=== PATIENT | female | born 1990 | race Caucasian/White ===

== ENCOUNTER 2019-04-16 18:31 | Inpatient (IN) | payer OTHER ==
[2019-04-16] MEDS ORDERED: PROMETHAZINE 25 MG/ML VIAL IM PRN (20:15)
[2019-04-16] MEDS ORDERED: CARBOPROST TROME 250 MCG/ML IM PRN (20:15)
[2019-04-16] MEDS ORDERED: Ringers Lactate 1,000 ML IV PRN ×2 (20:15→20:24)
[2019-04-16] MEDS ORDERED: METHYLERGONOVINE 0.2MG/ML AMP IM PRN (20:15)
[2019-04-16] MEDS ORDERED: BUTORPHANOL 1 MG/ML INJ IV PRN (20:15)
[2019-04-16] MEDS ORDERED: PENICILLIN 5 MU in NA CHLORIDE 0.9% 100 ML IV ONE (20:15)
[2019-04-16 20:56] LABS: Absolute Lymphocytes (CBC) 1.3 K/uL (0.7-4.9); Basophils % 0.2 % (0-1.3); Hematocrit 35.3 % (36.0-45.0); Lymphocytes % 9.7 % (15.3-44.8); MPV 10.5 fL (7.6-11.3); RBC Red Blood Cell Count 3.88 M/uL (3.86-4.86); Urine Appearance TURBID; Urine Blood 3+ (NEG); Urine Color RED; Urine Glucose NEGATIVE (NEG); Urine Protein 2+ (NEG)
[2019-04-16] MEDS ORDERED: OXYTOCIN/LR 20 UNIT/1,000 ML BAG IV SCH (21:00)
[2019-04-16] MEDS ORDERED: Ringers Lactate 1,000 ML IV SCH (21:00)
[2019-04-16 21:01] LABS: Urine Microscopic Reflex ORDER UMIC
[2019-04-16 21:05] LABS: Urine Bilirubin NEGATIVE (NEG)
[2019-04-16 21:09] LABS: Urine RBC TNTC /HPF (NONE SEEN)
[2019-04-16 21:10] LABS: Urine Amorphous Sediment 2+ /HPF (NONE SEEN); Urine Bacteria <20 /HPF (<20); Urine Culture Reflex Order REFLEXED
[2019-04-16] MEDS ORDERED: ROPIVACAINE HCL 20 ML ONE (21:27)
[2019-04-16] MEDS ORDERED: FENTANYL CITR 100 MCG/2 ML ONE (21:27)
[2019-04-16] MEDS ORDERED: ROPIVACAINE HCL 100 ML IV ONE (21:27)
[2019-04-16] MEDS ORDERED: LIDOCAINE 1% 20 ML MDV ONE (22:24)
[2019-04-16 22:48] VITALS: BMI 37.8
[2019-04-16 23:15] LABS: RPR (Rapid Plasma Reagin) NON-REACT (NON-REACT)
[2019-04-17] MEDS ORDERED: PENICILLIN 2.5 MU in NA CHLORIDE 0.9% 100 ML IV SCH ×2
[2019-04-17] MEDS ORDERED: PENICILLIN G POT 5 MU/VIAL IV ONE (00:20)
[2019-04-17] MEDS ORDERED: NA CHLORIDE 0.9% 0 ML ONE (00:21)
[2019-04-17] MEDS ORDERED: NA CHLORIDE 0.9% 100 ML IV ONE (00:24)
--- NOTE | 2019-04-17 00:34 | PREOPHP ---
Date of Admission: 04/16/2019 This is a 29-year-old primigravida, 38 weeks 5 days, came in active labor. Was 3 cm on admission, lares d been 2 cm in the office. Within a short period time was 3 cm and then 4 cm. She was admitted, sta rted on IV penicillin as she was beta strep positive. Has received 1 dose and should receive another dose within the next hour or less. At 6 cm, requested epidural anesthesia. This was administered a nd patient is quite comfortable at this time. Spontaneous rupture of membranes occurred thereafter. Light meconium. External monitor shows good variability, no signs of any problems at this time, but meconium discussed with patient and family. We will suction the baby thoroughly at the time of saira go. She is now 8.5 cm, 90% to 100% effaced, +1 station. She is barely aware of her contractions. We may turn the epidural back if she cannot push effectively, but right now, she is doing well advan cing, so we will leave it at the current setting of 10. Admission talk given, anticipate delivery so metime relatively soon. JOE/KAYLEY Voice ID: [id number]
--- NOTE | 2019-04-17 01:14 | PN ---
The patient has a lip of cervix left, we will wait until she is complete to begin pushing. There pizarro s appear to be a small particulate matter present, I still do not see any dark green signs of meconiu m. Nonetheless, we will get a human resources coordinator to come out at the time of delivery in case the baby need s more thorough suctioning after the head and body are delivered. Thorough discussion with patient a nd family. Scalp electrode placed for better assessment, but thus far the baby looked good. We will start some light Pitocin as contractions were slightly spacing out. STEPHENC/MODL Voice ID: [id number] Report ID: [id number]
[2019-04-17] MEDS ORDERED: LIDOCAINE 1% MPF 30 ML VIAL ONE (03:32)
[2019-04-17] MEDS ORDERED: BISACODYL 10 MG RECTAL SUPP RECT PRN (03:44)
[2019-04-17] MEDS ORDERED: Oxycodone HCl/Acetaminophen 1 TAB TAB PO PRN ×2 (03:44)
[2019-04-17] MEDS ORDERED: DOCUSATE NA/SENNA CONC 1 TAB PO PRN (03:44)
[2019-04-17] MEDS ORDERED: DIPHENHYDRAMINE 25 MG TAB/CAP PO PRN (03:44)
[2019-04-17] MEDS ORDERED: ACETAMINOPHEN 500 MG TAB PO PRN (03:44)
[2019-04-17] MEDS ORDERED: OXYTOCIN/LR 20 UNIT/1,000 ML BAG IV SCH (04:00)
--- NOTE | 2019-04-17 04:40 | OP ---
Surgeon: Ru Beth MD History: A 29-year-old primigravida, 38 weeks 5 days, on admission mirza in active labor. Had Stadol 1 mg IV at 6 cm, requested and received epidural anesthesia. Had spontaneous rupture of memb ranes, meconium noted. Dr. Devlin notified and was present at the time of delivery. Second stage of about 1 hour and 15 minutes. Spontaneous vaginal delivery of a 7-pound 11-ounce male infant, very loose nuchal cord x1. Thorough suctioning of the nares and oropharynx prior to delivery of the body and then Dr. Devlin took over, no suspicion of aspiration. Apgars 9 and 9. Second-degree lacerat ion repaired with 2-0 chromic, local infiltration, and a first-degree laceration just inside the labi a minora on the left, also local infiltration. Schultze delivery of the placenta, which was inspecte d and noted to be stained with meconium, but otherwise normal and intact. Estimated blood loss 350 m L to 375 mL. The patient received penicillin 5 million units initially, then 2.5 million units durin g the labor. Tolerated all procedures well. Final Diagnoses: Term intrauterine 38 weeks 6 days of delivery, epidural anesthesia. Meco nium staining of amniotic fluid. No suspicion of aspiration. Penicillin prophylaxis. Patient is Rh negative and will be qualified for RhoGAM during her stay. JOE/KAYLEY Voice ID: [id number] Report ID: [id number]
[2019-04-17] MEDS: IBUPROFEN 200 MG TAB PO PRN ×2 (05:57→16:50)
[2019-04-17] MEDS ORDERED: Rho(D) IG (HUMAN) 300 MCG SYR IM ONE (10:03)
[2019-04-18] MEDS: IBUPROFEN 200 MG TAB PO PRN ×2 (00:16→08:30)
[2019-04-18 07:13] VITALS: BP 132/86; TEMP 98
[2019-04-20 03:05] LABS: HBsAG Nonreactive (Nonreactive)
== END 2019-04-18 10:25 | disposition home or self-care (01) | DRG 807 ==
LOC: L&D 18:31 → 2ND-WC 20:11
PROVIDERS: ADMIT Specialist; ATTEND Specialist
PROC: 10E0XZZ Delivery of Products of Conception, External Approach (ICD-10-PCS; principal; 2019-04-17)
PROC: 0KQM0ZZ Repair Perineum Muscle, Open Approach (ICD-10-PCS; 2019-04-17)
PROC: 3E0234Z Introduction of Serum, Toxoid and Vaccine into Muscle, Percutaneous Approach (ICD-10-PCS; 2019-04-17)
DX: O70.1 Second degree perineal laceration during delivery (principal); Z37.0 Single live birth; O69.81X0 Labor and delivery complicated by cord around neck, without compression, not applicable or unspecified; O99.824 Streptococcus B carrier state complicating childbirth; Z3A.38 38 weeks gestation of pregnancy
CPT/HCPCS: 36415; 81003; 81015; 85025; 85461; 86592; 86850; 86901; 87086; 87088; 87340; J0595; J2210; J2550; J2590; J2790; J2795; J3010; J7040; J7120

== ENCOUNTER 2021-10-20 06:12 | Emergency (ER) | payer OTHER ==
[2021-10-20 06:41] LABS: Urine Blood 1+ (Negative); Urine Glucose Negative (Negative); Urine Protein 3+ (Negative); Urine pH 6.5 (5.0-7.0)
[2021-10-20] MEDS ORDERED: ONDANSETRON 4 MG/2 ML VIAL ONE (06:56)
[2021-10-20] MEDS ORDERED: MORPHINE 4 MG/ML SYR ONE (06:56)
[2021-10-20] MEDS ORDERED: NA CHLORIDE 0.9% 1,000 ML ONE (06:56)
[2021-10-20 07:07] LABS: Absolute Lymphocytes (CBC) 0.5 K/uL (0.7-4.9); Hematocrit 40.1 % (36.0-45.0); Lymphocytes % 9.7 % (15.3-44.8); MPV 8.6 fL (7.6-11.3); RBC Red Blood Cell Count 3.86 M/uL (3.86-4.86)
[2021-10-20 07:25] LABS: Albumin 3.9 g/dL (3.4-5.0); Bilirubin Total 1.8 mg/dL (0.2-1.0); Protein, Total 7.7 g/dL (6.4-8.2)
--- NOTE | 2021-10-20 08:02 | RAD REPORT ---
EXAM DESCRIPTION: CT - Abdomen Pelvis Wo Contrast - 10/20/2021 7:40 am CLINICAL HISTORY: Abdominal pain. Abdominal pain, acute, nonlocalized COMPARISON: CTSTONE PROTOCOL dated 05/21/2013 TECHNIQUE: CT imaging of the abdomen and pelvis was performed without contrast. Solid organ, bowel a nd vascular assessment is limited due to lack of IV and oral contrast. All CT scans are performed using dose optimization technique as appropriate and may include automated exposure control or mA/KV adjustment according to patient size. FINDINGS: The lower lung jung are clear. The liver demonstrates fatty infiltration. The spleen, pancreas, adrenal glands are within normal garcia its for a limited non-contrast examination.Bilateral nephrolithiasis is present without hydronephrosi s identified. Largest stone is inferior left kidney measuring 7 millimeters. No bowel obstruction, free air, free fluid or abscess. The appendix is normal. The osseous structures are within normal limits. IMPRESSION: Bilateral nephrolithiasis without hydronephrosis. Mild fatty liver. A limited non-contrast examination was performed as detailed.
[2021-10-20] MEDS ORDERED: POTASSIUM CL SA 10 MEQ TAB PO ONE (08:12)
[2021-10-20 08:26] LABS: White Blood Cell Scan OK (OK)
[2021-10-20 08:27] LABS: Anisocytosis 1+; Hypochromasia 1+; Platelet Estimate DECR
[2021-10-20 08:47] LABS: Blood Morphology Comment NOT SEEN (NOT SEEN)
[2021-10-20] MEDS ORDERED: NA CHLORIDE 0.9% 100 ML ONE (09:08)
[2021-10-20] MEDS ORDERED: CEFTRIAXONE 1000 MG/VIAL ONE (09:08)
[2021-10-20 09:19] LABS: Absolute Lymphocytes (CBC) 0.6 K/uL (0.7-4.9); Lymphocytes % 10.5 % (15.3-44.8); MPV 9.3 fL (7.6-11.3); RBC Red Blood Cell Count 3.77 M/uL (3.86-4.86)
--- NOTE | 2021-10-20 10:06 | EDPHYS ---
Physician Documentation [facility] Name: Dionne Berger Age: 31 yrs Sex: Female : 1990 Arrival Date: 10/20/2021 Time: 06:17 Bed 5 Private MD: ED Physician Antelmo Roblero HPI: 10/20 06:52 This 31 yrs old Female presents to ER via Ambulatory with complaints of Low Back Pain, mh7 Abdominal Cramping, Nausea, Dizziness. 06:52 The patient presents with abdominal pain in the lower abdomen. Onset: The mh7 symptoms/episode began/occurred 1 week(s) ago. The symptoms radiate to the right flank. Associated signs and symptoms: Pertinent positives: nausea and vomiting, Pertinent negatives: anorexia, blood in stools, chest pain, constipation, diarrhea, dysuria, fever, headache, hematuria, palpitations, shortness of breath, vaginal discharge, vomiting blood. The symptoms are described as intermittent, vague, waxing/waning. Modifying factors: The symptoms are alleviated by nothing, the symptoms are aggravated by nothing. Severity of pain: At its worst the pain was moderate in the emergency department the pain is unchanged. 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 - Social history:: Smoking status: Patient reports the use of cigarette tobacco products, couple cigs a day. ROS: 06:52 Constitutional: Negative for fever, chills, and weight loss, Eyes: Negative for injury, mh7 pain, redness, and discharge, ENT: Negative for injury, pain, and discharge, Neck: Negative for injury, pain, and swelling, Cardiovascular: Negative for chest pain, palpitations, and edema, Respiratory: Negative for shortness of breath, cough, wheezing, and pleuritic chest pain, MS/Extremity: Negative for injury and deformity, Skin: Negative for injury, rash, and discoloration, Neuro: Negative for headache, weakness, numbness, tingling, and seizure, Psych: Negative for depression, anxiety, suicide ideation, homicidal ideation, and hallucinations, Allergy/Immunology: Negative for hives, rash, and allergies, Endocrine: Negative for neck swelling, polydipsia, polyuria, polyphagia, and marked weight changes, Hematologic/Lymphatic: Negative for swollen nodes, abnormal bleeding, and unusual bruising. Exam: 06:52 Head/Face: Normocephalic, atraumatic. Eyes: Pupils equal round and reactive to light, mh7 extra-ocular motions intact. Lids and lashes normal. Conjunctiva and sclera are non-icteric and not injected. Cornea within normal limits. Periorbital areas with no swelling, redness, or edema. Neck: Trachea midline, no thyromegaly or masses palpated, and no cervical lymphadenopathy. Supple, full range of motion without nuchal rigidity, or vertebral point tenderness. No Meningismus. Chest/axilla: Normal chest wall appearance and motion. Nontender with no deformity. No lesions are appreciated. Cardiovascular: Regular rate and rhythm with a normal S1 and S2. No gallops, murmurs, or rubs. Normal PMI, no JVD. No pulse deficits. Respiratory: Lungs have equal breath sounds bilaterally, clear to auscultation and percussion. No rales, rhonchi or wheezes noted. No increased work of breathing, no retractions or nasal flaring. Back: No spinal tenderness. No costovertebral tenderness. Full range of motion. Skin: Warm, dry with normal turgor. Normal color with no rashes, no lesions, and no evidence of cellulitis. MS/ Extremity: Pulses equal, no cyanosis. Neurovascular intact. Full, normal range of motion. Neuro: Awake and alert, GCS 15, oriented to person, place, time, and situation. Cranial nerves II-XII grossly intact. Motor strength 5/5 in all extremities. Sensory grossly intact. Cerebellar exam normal. Normal gait. Psych: Awake, alert, with orientation to person, place and time. Behavior, mood, and affect are within normal limits. 06:52 Constitutional: The patient appears in no acute distress, alert, awake, uncomfortable. 06:52 Abdomen/GI: Inspection: abdomen appears normal, Bowel sounds: normal, in all quadrants, Palpation: moderate abdominal tenderness, in the suprapubic area and right lower quadrant, mass, is not appreciated, rebound tenderness, is not appreciated, voluntary guarding, is not appreciated, involuntary guarding, is not appreciated, no appreciated organomegaly, Indicators: McBurney's point is not tender, Galan's sign is negative, Rovsing's sign is negative, Obturator sign is negative, Psoas sign is negative, Liver: no appreciated palpable abnormalities, Hernia: not appreciated. Vital Signs: 06:25 BP 143 / 97; Pulse 84; Resp 18; Temp 97.9; Pulse Ox 100% on R/A; Weight 65.77 kg; tw5 Height 5 ft. 1 in. (154.94 cm); Pain 5/10; 07:00 BP 137 / 99; Pulse 80; Resp 16; Pulse Ox 98% ; bp 09:00 BP 128 / 88; Pulse 75; Resp 15; Pulse Ox 98% ; bp 10:23 BP 103 / 93; Pulse 82; Resp 16; Pulse Ox 98% ; bp 06:25 Body Mass Index 27.40 (65.77 kg, 154.94 cm) tw5 MDM: 07:02 Transition of care: Care assumed from Kash Kuhn MD. ms3 07:42 Patient medically screened. ms3 10:10 Data reviewed: vital signs, nurses notes, lab test result(s), radiologic studies, and ms3 as a result, I will discharge patient. Counseling: I had a detailed discussion with the patient and/or guardian regarding: the historical points, exam findings, and any diagnostic results supporting the discharge/admit diagnosis, lab results, radiology results, the need for outpatient follow up, to return to the emergency department if symptoms worsen or persist or if there are any questions or concerns that arise at home. ED course: Discussed labs, CT, physical exam findings with patient. Patient to follow-up with Dr Sin in 1-2 days. Patient understands and agrees with plan. All questions were answered. Return precautions discussed include worsening symptoms, or any other concerns. On reevaluation patient is alert and oriented x4, in no apparent distress, nontoxic-appearing, speaking full sentences, ambulatory in emergency department.. 10/20 06:41 Order name: Urine Dipstick-Ancillary; Complete Time: 06:43 EDMS 10/20 06:44 Order name: Urine --Ancillary (enter results); Complete Time: 07:02 mw2 10/20 06:45 Order name: CBC with Diff; Complete Time: 08:52 mh7 10/20 06:45 Order name: CMP; Complete Time: 07:42 mh7 10/20 06:45 Order name: Lipase; Complete Time: 07:42 mh7 10/20 08:08 Order name: CBC with Diff; Complete Time: 10:01 ms3 10/20 06:56 Order name: CT Abd/Pelvis - Without Contrast; Complete Time: 08:07 mh7 10/20 08:27 Order name: CBC Smear Scan; Complete Time: 08:52 EDMS 10/20 06:30 Order name: Urine Dipstick-Ancillary (obtain specimen); Complete Time: 06:40 tw5 10/20 06:30 Order name: Urine Test (obtain specimen); Complete Time: 06:40 tw5 10/20 06:45 Order name: IV Saline Lock; Complete Time: 07:01 mh7 10/20 06:45 Order name: Labs collected and sent; Complete Time: 07:01 7 Administered Medications: 06:49 CANCELLED (Duplicate Order): NS 0.9% 1000 ml IV at 1000 ml once as6 07:01 Drug: NS 0.9% 1000 ml Route: IV; Rate: 1 bolus; Site: right antecubital; as6 07:01 Drug: Zofran (Ondansetron) 4 mg Route: IVP; Site: right antecubital; as6 08:08 Follow up: Response: No adverse reaction bp 07:01 Drug: morphine 4 mg Route: IVP; Infused Over: 4 mins; Site: right antecubital; as6 08:08 Follow up: Response: Pain is decreased bp 08:08 Drug: Potassium Chloride 40 mEq Route: PO; bp 08:50 Follow up: Response: No adverse reaction bp 09:10 Drug: Rocephin (cefTRIAXone) 1 grams Route: IV; Rate: calculated rate; Site: right bp antecubital; 10:22 Follow up: IV Status: Completed infusion; IV Intake: 100ml bp Disposition Summary: 10/20/21 10:06 Discharge Ordered Location: Home ms3 Condition: Stable ms3 Diagnosis - Thrombocytopenia, unspecified ms3 - UTI/ Urinary tract infection, site not specified ms3 Followup: ms3 - With: Neema Garcia MD - When: 1 - 2 days - Reason: Recheck today's complaints Discharge Instructions: - Discharge Summary Sheet ms3 - Urinary Tract Infection, Adult, [id number] ms3 - Thrombocytopenia, [id number] ms3 Forms: - Medication Reconciliation Form ms3 - Thank You Letter ms3 - Antibiotic Education ms3 - Prescription Opioid Use ms3 Prescriptions: - cefpodoxime 200 mg Oral Tablet - take 1 tablet by ORAL route every 12 hours with food; 20 tablet; Refills: 0, ms3 Product Selection Permitted Signatures: Dispatcher [employer] Suzanne Gaines RN RN bb Jason Johnson RN RN Antelmo Rodriguez DO DO ms3 Kash Kuhn MD MD [facility] Camelia Wilks 5 Wily Kamara RN RN as6 Corrections: (The following items were deleted from the chart) 06:31 06:28 Home Meds: None; 06:31 06:28 PMHx: None; [facility] 06:49 06:45 NS 0.9% 1000 ml IV at 1000 ml once ordered. [place] as6
--- NOTE | 2021-10-20 10:06 | ER ---
Nurse's Notes [facility] Name: Dionne Berger Age: 31 yrs Sex: Female : 1990 Arrival Date: 10/20/2021 Time: 06:17 Bed 5 Private MD: Diagnosis: Thrombocytopenia, unspecified;UTI/ Urinary tract infection, site not specified Presentation: 10/20 06:25 Chief complaint: Patient states: dark urine, lower back pain. Chief complaint: Patient tw5 states: patient states symptoms started about a month and a half ago. Coronavirus screen: Vaccine status: Patient reports receiving the 2nd dose of the covid vaccine. [employer]. Ebola Screen: Patient negative for fever greater than or equal to 101.5 degrees Fahrenheit, and additional compatible Ebola Virus Disease symptoms Patient denies exposure to infectious person. Patient denies travel to an Ebola-affected area in the 21 days before illness onset. Initial Sepsis Screen: Does the patient meet any 2 criteria? No. Patient's initial sepsis screen is negative. Does the patient have a suspected source of infection? Yes: Acute abdominal pain. Risk Assessment: Do you want to hurt yourself or someone else? Patient reports no desire to harm self or others. Onset of symptoms is unknown. 06:25 Acuity: MARSHA 3 tw5 06:25 Method Of Arrival: Ambulatory tw5 06:27 Chief complaint: Patient states: she has been having low back and groin pain for about bb 6 weeks but yesterday she started having difficulty urinating and it was brownish colored with possible blood and she has been bruising easily. Triage Assessment: 06:28 General: Appears in no apparent distress. Behavior is calm, cooperative, appropriate tw5 for age. 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 - Social history:: Smoking status: Patient reports the use of cigarette tobacco products, couple cigs a day. Screenin:29 Abuse screen: Denies threats or abuse. Denies injuries from another. Nutritional tw5 screening: No deficits noted. Tuberculosis screening: No symptoms or risk factors identified. Fall Risk None identified. Assessment: 06:24 General: Reports "I am having a lot of otilia pain, front pain, and my urine is so tw5 dark.". Pain: Complains of pain in left low back, suprapubic area, right lower quadrant and left lower quadrant Pain currently is 5 out of 10 on a pain scale. Neuro: Level of Consciousness is awake, alert, obeys commands, Oriented to person, place, time, situation. Cardiovascular: No deficits noted. GI: GI: 07:00 Reassessment: RECD REPORT FROM WILY RUSS. 31YO WF P/W URINARY S/S. bp 09:00 Reassessment: No changes from previously documented assessment. Patient and/or family bp updated on plan of care and expected duration. Pain level reassessed. 10:23 Reassessment: PT D/C HOME AMBULATORY, DX WITH UTI. bp Vital Signs: 06:25 BP 143 / 97; Pulse 84; Resp 18; Temp 97.9; Pulse Ox 100% on R/A; Weight 65.77 kg; tw5 Height 5 ft. 1 in. (154.94 cm); Pain 5/10; 07:00 BP 137 / 99; Pulse 80; Resp 16; Pulse Ox 98% ; bp 09:00 BP 128 / 88; Pulse 75; Resp 15; Pulse Ox 98% ; bp 10:23 BP 103 / 93; Pulse 82; Resp 16; Pulse Ox 98% ; bp 06:25 Body Mass Index 27.40 (65.77 kg, 154.94 cm) tw5 ED Course: 06:17 Patient arrived in ED. ja2 06:20 Camelia Wilks is Primary Nurse. tw5 06:25 Kash Kuhn MD is Attending Physician. mh7 06:28 Triage completed. tw5 06:28 Arm band placed on. tw5 06:29 Patient has correct armband on for positive identification. Bed in low position. Call tw5 light in reach. Side rails up X 1. Pulse ox on. NIBP on. Door closed. Moved to private room. 06:45 Urine --Ancillary (enter results) Sent. tw5 07:00 Inserted saline lock: 20 gauge in right antecubital area, using aseptic technique. as6 Blood collected. 07:01 CBC with Diff Sent. as6 07:01 CMP Sent. as6 07:01 Lipase Sent. as6 07:02 Attending Physician role handed off by Kash Kuhn MD ms3 07:02 Antelmo Roblero DO is Attending Physician. ms3 07:42 CT Abd/Pelvis - Without Contrast In Process Unspecified. EDMS 07:57 Primary Nurse role handed off by Camelia Wilks ll1 08:08 Jason Johnson, JEB is Primary Nurse. bp 08:51 CBC with Diff Sent. bp 10:05 Pant Neema Hudson MD is Referral Physician. ms3 10:23 No provider procedures requiring assistance completed. IV discontinued, intact, bp bleeding controlled, No redness/swelling at site. Pressure dressing applied. Administered Medications: 06:49 CANCELLED (Duplicate Order): NS 0.9% 1000 ml IV at 1000 ml once as6 07:01 Drug: NS 0.9% 1000 ml Route: IV; Rate: 1 bolus; Site: right antecubital; as6 07:01 Drug: Zofran (Ondansetron) 4 mg Route: IVP; Site: right antecubital; as6 08:08 Follow up: Response: No adverse reaction bp 07:01 Drug: morphine 4 mg Route: IVP; Infused Over: 4 mins; Site: right antecubital; as6 08:08 Follow up: Response: Pain is decreased bp 08:08 Drug: Potassium Chloride 40 mEq Route: PO; bp 08:50 Follow up: Response: No adverse reaction bp 09:10 Drug: Rocephin (cefTRIAXone) 1 grams Route: IV; Rate: calculated rate; Site: right bp antecubital; 10:22 Follow up: IV Status: Completed infusion; IV Intake: 100ml bp Medication: 06:29 VIS not applicable for this client. tw5 Intake: 10:22 IV: 100ml; Total: 100ml. bp Outcome: 10:06 Discharge ordered by . ms3 10:23 Discharged to home ambulatory. bp 10:23 Condition: stable 10:23 Discharge instructions given to patient, Instructed on discharge instructions, follow up and referral plans. medication usage, Demonstrated understanding of instructions, follow-up care, medications, Prescriptions given X 1. 10:24 Patient left the ED. bp Signatures: Dispatcher [facility] Suzanne Dove, RN RN bb Jason Johnson RN RN bp Ale Roberto RN RN ll1 Antelmo Roblero, DO STRAUSS ms3 Kash Kuhn MD MD 7 Desi Andrew Camelia Antoine tw5 Wily Kamara RN RN as6 Corrections: (The following items were deleted from the chart) 06:28 Home Meds: None; 06:28 PMHx: None;
[2021-10-20 10:50] VITALS: TEMP 97.9
[2021-10-20 10:52] VITALS: O2SAT 98
[2021-10-20 10:57] VITALS: BP 103/93
== END 2021-10-20 10:24 | disposition home or self-care (01) ==
LOC: ER 06:12
DX: N39.0 Urinary tract infection, site not specified (principal); D69.6 Thrombocytopenia, unspecified; Z72.0 Tobacco use
CPT/HCPCS: 96365; 85025 ×2; 36415; 81025; 81003; 83690; 80053; 74176; 96375; 99284; J7030; J2405

== ENCOUNTER 2021-11-09 18:22 | Emergency (ER) | payer OTHER ==
[2021-11-09 18:46] LABS: Urine Blood 3+ (Negative); Urine Glucose Negative (Negative); Urine Protein 2+ (Negative); Urine Specific Gravity >=1.030 (1.005-1.030); Urine pH 6.5 (5.0-7.0)
[2021-11-09] MEDS ORDERED: FAMOTIDINE 20 MG/2 ML VIAL IV ONE (19:08)
[2021-11-09] MEDS ORDERED: NA CHLORIDE 0.9% 1,000 ML ONE (19:08)
[2021-11-09] MEDS ORDERED: DIPHENHYDRAMINE 50 MG/ML VIAL ONE (19:08)
[2021-11-09] MEDS ORDERED: dexAMETHasone 10 MG/ML VIAL ONE (19:08)
[2021-11-09 19:15] LABS: Urine Bacteria <20 /HPF (<20); Urine RBC TNTC /HPF (NONE SEEN)
--- NOTE | 2021-11-09 20:04 | ER ---
Nurse's Notes [facility] Name: Dionne Berger Age: 31 yrs Sex: Female : 1990 Arrival Date: 11/09/2021 Time: 18:26 Bed 7 Private MD: Diagnosis: UTI/ Urinary tract infection, site not specified;Adverse effect of unspecified drugs, medicaments and biological substances Presentation: 11/09 18:43 Chief complaint: EMS states: MEDICATION REACTION TO TRAMADOL AND/OR ZOFRAN, TAKEN AT bp 0600, NOW WITH NAUSEA/TREMORS. Coronavirus screen: At this time, the client does not indicate any symptoms associated with coronavirus-19. Ebola Screen: No symptoms or risks identified at this time. Onset: The symptoms/episode began/occurred this morning. Anaphylaxis evaluation, no signs or symptoms of anaphylaxis were noted. Initial Sepsis Screen: Does the patient meet any 2 criteria? HR > 90 bpm. No. Patient's initial sepsis screen is negative. Does the patient have a suspected source of infection? No. Patient's initial sepsis screen is negative. Risk Assessment: Do you want to hurt yourself or someone else? Patient reports no desire to harm self or others. Onset of symptoms was November 09, 2021 at 06:00. 18:43 Method Of Arrival: Ambulatory bp 18:43 Acuity: MARSHA 3 bp Triage Assessment: 18:46 General: Appears distressed, uncomfortable, Behavior is cooperative, appropriate for bp age, anxious. Pain: Denies pain. EENT: No deficits noted. Neuro: Level of Consciousness is awake, alert, obeys commands, Oriented to Appropriate for age TREMULOUS. Cardiovascular: Rhythm is sinus tachycardia. Respiratory: No deficits noted. GI: No signs and/or symptoms were reported involving the gastrointestinal system. : No signs and/or symptoms were reported regarding the genitourinary system. Derm: No deficits noted. Musculoskeletal: Circulation, motion, and sensation intact. Range of motion: intact in all extremities. 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 - Social history:: Smoking status: Patient denies any tobacco usage or history of. Screenin:47 Abuse screen: Denies threats or abuse. Denies injuries from another. Nutritional bp screening: No deficits noted. Tuberculosis screening: No symptoms or risk factors identified. Fall Risk None identified. Assessment: 18:47 General: SEE TRIAGE NOTE. bp 19:41 Reassessment: Patient appears in no apparent distress at this time. Patient and/or jb4 family updated on plan of care and expected duration. Pain level reassessed. Patient is alert, oriented x 3, equal unlabored respirations, skin warm/dry/pink. Patient states symptoms have improved. Respiratory: No deficits noted. Airway is patent Respiratory effort is even, unlabored. 20:02 Reassessment: Patient appears in no apparent distress at this time. Patient is alert, as6 oriented x 3, equal unlabored respirations, skin warm/dry/pink. Vital Signs: 18:43 BP 177 / 116; Pulse 129; Resp 24; Temp 98.8; Pulse Ox 100% ; Weight 65.77 kg; Height 5 bp ft. 1 in. (154.94 cm); 19:39 BP 131 / 94; Pulse Ox 100% on R/A; jb4 20:01 BP 131 / 94; Pulse 87; Resp 18 S; Pulse Ox 100% on R/A; as6 18:43 Body Mass Index 27.40 (65.77 kg, 154.94 cm) bp ED Course: 18:26 Patient arrived in ED. as 18:35 Jeffery Govea NP is PHCP. pm1 18:35 Gabriel Valderrama MD is Attending Physician. pm1 18:39 Jason Johnson, JEB is Primary Nurse. bp 18:46 Triage completed. bp 18:46 Arm band placed on. bp 18:47 Patient has correct armband on for positive identification. Bed in low position. Call bp light in reach. Side rails up X2. Pulse ox on. NIBP on. 19:12 Inserted saline lock: 20 gauge in right antecubital area, using aseptic technique. bp Blood collected. 20:02 PO fluids given. as6 20:46 No provider procedures requiring assistance completed. aa9 20:46 IV discontinued, intact, bleeding controlled, No redness/swelling at site. Pressure aa9 dressing applied. Administered Medications: 19:11 Drug: Pepcid (famotidine) 20 mg Route: IVP; Site: right antecubital; bp 20:51 Follow up: Response: No adverse reaction aa9 19:12 Drug: Benadryl (diphenhydrAMINE) 50 mg Route: IVP; Site: right antecubital; bp 20:51 Follow up: Response: No adverse reaction aa9 19:12 Drug: NS 0.9% 1000 ml Route: IV; Rate: 1000 ml; Site: right antecubital; bp 20:51 Follow up: Response: No adverse reaction; IV Status: Completed infusion; IV Intake: aa9 1000ml 19:12 Drug: Decadron - Dexamethasone 10 mg Route: IVP; Site: right antecubital; bp 20:51 Follow up: Response: No adverse reaction aa9 Medication: 18:47 VIS not applicable for this client. bp Intake: 20:51 IV: 1000ml; Total: 1000ml. aa9 Outcome: 20:03 Discharge ordered by MD. pm1 20:47 Condition: stable aa9 20:47 Discharged to home ambulatory. aa9 20:47 Discharge instructions given to patient. 20:52 Patient left the ED. aa9 Signatures: Stephanie Cruz Patrick, NP AUDITING CLERK pm1 Cyril Salinas RN RN jb4 Jason Johnson RN RN bp Wily Kamara RN RN as6 Gauri Pedroza RN RN aa9
--- NOTE | 2021-11-09 20:04 | EDPHYS ---
Physician Documentation [facility] Name: Dionne Berger Age: 31 yrs Sex: Female : 1990 Arrival Date: 11/09/2021 Time: 18:26 Bed 7 Private MD: ED Physician Gabriel Valderrama HPI: 11/09 18:46 This 31 yrs old Female presents to ER via Ambulatory with complaints of Allergic pm1 Reaction. 18:46 The patient presents with Feeling jittery and shaking all over. Onset: The pm1 symptoms/episode began/occurred this morning, 1 hour after taking tramadol. Associated signs and symptoms: Pertinent negatives: fever, shortness of breath, vomiting, Rash. Possible causes: Tramadol. At home the patient or guardian has treated the symptoms with nothing. Severity of symptoms: in the emergency department the symptoms are unchanged. The patient has not experienced similar symptoms in the past. The patient has not recently seen a physician, Patient contacted her primary care provider for pain medication due to kidney stones. Patient was prescribed tramadol and Zofran. Patient took tramadol and 1 hour later patient with jitteriness and shaking all over. 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 - Social history:: Smoking status: Patient denies any tobacco usage or history of. ROS: 18:46 Constitutional: Negative for fever, chills, and weight loss, ENT: Negative for injury, pm1 pain, and discharge, Cardiovascular: Negative for chest pain, palpitations, and edema, Respiratory: Negative for shortness of breath, cough, wheezing, and pleuritic chest pain, Abdomen/GI: Negative for abdominal pain, nausea, vomiting, diarrhea, and constipation, MS/Extremity: Negative for injury and deformity, Skin: Negative for injury, rash, and discoloration, Neuro: Negative for headache, weakness, numbness, tingling, and seizure. 18:46 All other systems are negative. Exam: 18:46 Constitutional: This is a well developed, well nourished patient who is awake, alert, pm1 and in no acute distress. Head/Face: Normocephalic, atraumatic. 18:46 Abdomen/GI: Soft, non-tender, with normal bowel sounds. No distension or tympany. No guarding or rebound. No evidence of tenderness throughout. Back: No spinal tenderness. No costovertebral tenderness. Full range of motion. Skin: Warm, dry with normal turgor. Normal color with no rashes, no lesions, and no evidence of cellulitis. MS/ Extremity: Pulses equal, no cyanosis. Neurovascular intact. Full, normal range of motion. 18:46 Cardiovascular: Exam negative for acute changes, Rate: normal, Rhythm: regular, Pulses: no pulse deficits are appreciated. 18:46 Respiratory: Exam negative for acute changes, respiratory distress, shortness of breath. 18:46 Neuro: Orientation: is normal, Mentation: is normal, Motor: moves all fours, Abnormal movements: resting tremor, is located in the right arm and left arm. Vital Signs: 18:43 BP 177 / 116; Pulse 129; Resp 24; Temp 98.8; Pulse Ox 100% ; Weight 65.77 kg; Height 5 bp ft. 1 in. (154.94 cm); 19:39 BP 131 / 94; Pulse Ox 100% on R/A; jb4 20:01 BP 131 / 94; Pulse 87; Resp 18 S; Pulse Ox 100% on R/A; as6 18:43 Body Mass Index 27.40 (65.77 kg, 154.94 cm) bp MDM: 18:35 Patient medically screened. pm1 19:59 Data reviewed: vital signs. Data interpreted: Pulse oximetry: on room air is 100 %. pm1 Interpretation: normal. Counseling: I had a detailed discussion with the patient and/or guardian regarding: the historical points, exam findings, and any diagnostic results supporting the discharge/admit diagnosis, lab results, the need for outpatient follow up, to return to the emergency department if symptoms worsen or persist or if there are any questions or concerns that arise at home. 20:15 ED course: Offered to patient Tylenol 3 as a source of pain management for her kidney pm1 stone. Dr. Anna had prescribed her tramadol, 21 pills for pain. Informed patient if I disposed of her medications, tramadol, I would give her Tylenol 3 as a replacement. However patient is under impression she cannot take Tylenol or ibuprofen in has decided that she will continue to take smaller doses of the tramadol. I informed the patient she will likely have repeated dystonic reactions from the medication if she continues to take the tramadol. Patient reports she will contact her primary care provider if she has any problems with continue take tramadol. 11/09 18:46 Order name: Urine Dipstick-Ancillary; Complete Time: 18:47 EDMS 11/09 18:46 Order name: Urine Microscopic Only; Complete Time: 19:15 kj1 11/09 19:18 Order name: Urine Culture EDFL 11/09 18:46 Order name: IV Saline Lock; Complete Time: 18:48 pm1 Administered Medications: 19:11 Drug: Pepcid (famotidine) 20 mg Route: IVP; Site: right antecubital; bp 20:51 Follow up: Response: No adverse reaction aa9 19:12 Drug: Benadryl (diphenhydrAMINE) 50 mg Route: IVP; Site: right antecubital; bp 20:51 Follow up: Response: No adverse reaction aa9 19:12 Drug: NS 0.9% 1000 ml Route: IV; Rate: 1000 ml; Site: right antecubital; bp 20:51 Follow up: Response: No adverse reaction; IV Status: Completed infusion; IV Intake: aa9 1000ml 19:12 Drug: Decadron - Dexamethasone 10 mg Route: IVP; Site: right antecubital; bp 20:51 Follow up: Response: No adverse reaction aa9 Disposition Summary: 11/09/21 20:03 Discharge Ordered Location: Home pm1 Problem: new pm1 Symptoms: have improved pm1 Condition: Stable pm1 Diagnosis - UTI/ Urinary tract infection, site not specified pm1 - Adverse effect of unspecified drugs, medicaments and biological substances pm1 Followup: pm1 - With: Emergency Department - When: As needed - Reason: Worsening of condition Followup: pm1 - With: Private Physician - When: 2 - 3 days - Reason: Recheck today's complaints, Continuance of care, Re-evaluation by your physician Discharge Instructions: - Discharge Summary Sheet pm1 - Dystonic Reaction pm1 - Urinary Tract Infection, Adult pm1 Forms: - Medication Reconciliation Form pm1 - Thank You Letter pm1 - Antibiotic Education pm1 - Prescription Opioid Use pm1 Prescriptions: - Benadryl 25 mg Oral Capsule - take 1 capsule by ORAL route every 6 hours As needed; 30 tablet; Refills: 0, pm1 Product Selection Permitted - Cipro 500 mg Oral Tablet - take 1 tablet by ORAL route every 12 hours for 7 days; 14 tablet; Refills: 0, pm1 Product Selection Permitted Signatures: Dispatcher [employer] Jeffery Shine NP EXHIBITS CURATOR pm1 Jason Johnson, RN RN bp Gauri Pedroza RN aa9
[2021-11-09 21:11] VITALS: TEMP 98.8; O2SAT 100
[2021-11-09 21:12] VITALS: BP 131/94
== END 2021-11-09 20:52 | disposition home or self-care (01) ==
LOC: ER 18:22
DX: R25.1 Tremor, unspecified (principal); T40.425A Adverse effect of tramadol, initial encounter; N39.0 Urinary tract infection, site not specified
CPT/HCPCS: 87088; 87086; J1200; J1100; J7030; J3490; 81003; 81015

== ENCOUNTER 2022-01-22 08:19 | Emergency (ER) | payer OTHER ==
[2022-01-22 09:12] LABS: Absolute Lymphocytes (CBC) 0.7 K/uL (0.7-4.9); Hematocrit 41.3 % (36.0-45.0); Lymphocytes % 9.6 % (15.3-44.8); MCV 99.5 fL (80-100); MPV 9.2 fL (7.6-11.3); RBC Red Blood Cell Count 4.15 M/uL (3.86-4.86)
[2022-01-22 09:17] LABS: Protime INR 1.05
[2022-01-22 09:31] LABS: Albumin 3.7 g/dL (3.4-5.0); Bilirubin Total 1.1 mg/dL (0.2-1.0); Protein, Total 8.5 g/dL (6.4-8.2)
[2022-01-22 09:33] LABS: Potassium 2.8 mmol/L (3.5-5.1)
--- NOTE | 2022-01-22 09:58 | RAD REPORT ---
EXAM DESCRIPTION: RAD - Chest Pa And Lat (2 Views) - 01/22/2022 9:49 am CLINICAL HISTORY: PRODUCTIVE COUGH COMPARISON: No comparisons FINDINGS: Lines: None. Lungs: No evidence of edema or pneumonia. Pleural: No significant pleural effusions or pneumothorax. Cardiac: The heart size is within normal limits. Mediastinum: Within normal limits. Bones: No acute fractures. Other: None IMPRESSION: No acute cardiopulmonary disease.
[2022-01-22] MEDS ORDERED: POTASSIUM 25 MEQ EFFERV TAB ONE (10:40)
[2022-01-22] MEDS ORDERED: NS KCL 20MEQ 1,000 ML IV ONE (10:41)
[2022-01-22 13:16] LABS: Potassium 4.3 mmol/L (3.5-5.1)
--- NOTE | 2022-01-22 13:54 | EDPHYS ---
Physician Documentation [facility] Name: Dionne Berger Age: 32 yrs Sex: Female : 1990 Arrival Date: 01/22/2022 Time: 08:22 Bed 7 Private MD: NADEEN Physician Hermann Buckley HPI: 01/22 08:38 This 32 yrs old Female presents to ER via Ambulatory with complaints of jl9 Vomiting Blood x1 this morning. Patient describes about a 1/2 cup total. Patient reports that her allergies have been acting up the last few days. Patient denies any pain or distress. . 08:38 Onset: The symptoms/episode began/occurred just prior to arrival. Associated signs and jl9 symptoms: The patient has no apparent associated signs or symptoms. Modifying factors: the patient symptoms are aggravated by nothing. The patient has not experienced similar symptoms in the past. Historical: - Allergies: 08:26 No Known Allergies; ko1 - PMHx: 08:26 Kidney stone; Ovarian cyst; ko1 - PSHx: 08:26 Pilonidal; ko1 - Immunization history:: Adult Immunizations up to date, Client reports receiving the 2nd dose of the Covid vaccine. - Social history:: Smoking status: Patient denies any tobacco usage or history of. ROS: 08:39 Constitutional: Negative for fever, chills, and weight loss, Eyes: Negative for injury, jl9 pain, redness, and discharge, ENT: Negative for injury, pain, and discharge, Neck: Negative for injury, pain, and swelling, Cardiovascular: Negative for chest pain, palpitations, and edema, Respiratory: Negative for shortness of breath, cough, wheezing, and pleuritic chest pain. 08:39 Back: Negative for injury and pain, : Negative for injury, bleeding, discharge, and swelling, MS/Extremity: Negative for injury and deformity, Skin: Negative for injury, rash, and discoloration, Neuro: Negative for headache, weakness, numbness, tingling, and seizure, Psych: Negative for depression, anxiety, suicide ideation, homicidal ideation, and hallucinations, Allergy/Immunology: Negative for hives, rash, and allergies, Endocrine: Negative for neck swelling, polydipsia, polyuria, polyphagia, and marked weight changes, Hematologic/Lymphatic: Negative for swollen nodes, abnormal bleeding, and unusual bruising. 08:39 Abdomen/GI: Positive for vomiting. Exam: 08:40 Constitutional: This is a well developed, well nourished patient who is awake, alert, jl9 and in no acute distress. Head/Face: Normocephalic, atraumatic. Eyes: Pupils equal round and reactive to light, extra-ocular motions intact. Lids and lashes normal. Conjunctiva and sclera are non-icteric and not injected. Cornea within normal limits. Periorbital areas with no swelling, redness, or edema. ENT: Mucous membranes moist. Neck: Trachea midline, no thyromegaly or masses palpated, and no cervical lymphadenopathy. Supple, full range of motion without nuchal rigidity, or vertebral point tenderness. No Meningismus. Chest/axilla: Normal chest wall appearance and motion. Nontender with no deformity. No lesions are appreciated. Cardiovascular: Regular rate and rhythm with a normal S1 and S2. No gallops, murmurs, or rubs. Normal PMI, no JVD. No pulse deficits. Respiratory: Lungs have equal breath sounds bilaterally, clear to auscultation and percussion. No rales, rhonchi or wheezes noted. No increased work of breathing, no retractions or nasal flaring. Abdomen/GI: Soft, non-tender, with normal bowel sounds. No distension or tympany. No guarding or rebound. No evidence of tenderness throughout. Back: No spinal tenderness. No costovertebral tenderness. Full range of motion. Skin: Warm, dry with normal turgor. Normal color with no rashes, no lesions, and no evidence of cellulitis. MS/ Extremity: Pulses equal, no cyanosis. Neurovascular intact. Full, normal range of motion. Neuro: Awake and alert, GCS 15, oriented to person, place, time, and situation. Cranial nerves II-XII grossly intact. Motor strength 5/5 in all extremities. Sensory grossly intact. Cerebellar exam normal. Normal gait. Psych: Awake, alert, with orientation to person, place and time. Behavior, mood, and affect are within normal limits. Vital Signs: 08:29 BP 138 / 92; Pulse 94; Resp 16; Temp 96.8; Pulse Ox 100% on R/A; Weight 68.04 kg; kr3 Height 5 ft. 1 in. (154.94 cm); 10:43 BP 130 / 82; Pulse 89; Resp 16; Temp 98.2; Pulse Ox 100% ; Pain 0/10; ko1 12:00 BP 110 / 47; Pulse 84; Resp 16; Temp 97.1; Pulse Ox 100% ; Pain 0/10; ko1 13:03 BP 122 / 86; Pulse 95; Resp 14; Pulse Ox 100% ; Pain 0/10; ko1 08:29 Body Mass Index 28.34 (68.04 kg, 154.94 cm) kr3 MDM: 08:28 Patient medically screened. jl9 08:41 Data reviewed: vital signs, nurses notes. jl9 13:53 Counseling: I had a detailed discussion with the patient and/or guardian regarding: the 9 historical points, exam findings, and any diagnostic results supporting the discharge/admit diagnosis, lab results, radiology results, the need for outpatient follow up, to return to the emergency department if symptoms worsen or persist or if there are any questions or concerns that arise at home. 01/22 08:38 Order name: CBC with Diff; Complete Time: 09:01/22 08:38 Order name: CMP; Complete Time: 10:02 01/22 08:38 Order name: PT-INR; Complete Time: :01/22 08:38 Order name: Ptt, Activated; Complete Time: :01/22 08:38 Order name: SARS-COV-2 RT PCR (Document "Date of Onset" if Symptomatic); Complete Time: 10:40 01/22 08:38 Order name: XRAY Chest Pa And Lat (2 Views); Complete Time: 10:02 01/22 11:49 Order name: BMP; Complete Time: 13:53 jl Administered Medications: 10:36 Drug: Potassium Chloride 20 mEq Route: IV; Rate: calculated rate; Site: right ko1 antecubital; 10:37 Drug: Potassium Effervescent Tablet 50 mEq Route: PO; ko1 Disposition Summary: 01/22/22 13:53 Discharge Ordered Location: Home jl9 Condition: Stable jl9 Diagnosis - Vomiting, unspecified jl9 Followup: jl9 - With: Private Physician - When: 1 - 2 days - Reason: Recheck today's complaints, Continuance of care, Re-evaluation by your physician Discharge Instructions: - Discharge Summary Sheet jl9 - Hemoptysis, [id number] jl9 - Hypokalemia jl9 Forms: - Medication Reconciliation Form jl9 - Thank You Letter jl9 - Antibiotic Education jl9 - Prescription Opioid Use jl9 Signatures: Dispatcher [employer] NADEENArnie Pederson jl9 Inessa Pa, RN RN kr3 Pavithra Randall RN RN ko1 Corrections: (The following items were deleted from the chart) 08:40 08:38 This 32 yrs old Female presents to ER via Ambulatory with complaints of jl9 Vomiting Blood x1 this morning. Patient reports that her allergies have been acting up the last few days. Patient denies any pain or distress. . jl9
--- NOTE | 2022-01-22 13:54 | ER ---
Nurse's Notes [facility] Name: Dionne Berger Age: 32 yrs Sex: Female : 1990 Arrival Date: 01/22/2022 Time: 08:22 Bed 7 Private MD: Diagnosis: Vomiting, unspecified Presentation: 01/22 08:29 Chief complaint: Patient states: vomited bright red blood x1 time this morning. kr3 Coronavirus screen: Vaccine status: Patient reports receiving the 2nd dose of the covid vaccine. Client denies travel out of the [place] in the last 14 days. Ebola Screen: Patient denies travel to an Ebola-affected area in the 21 days before illness onset. Initial Sepsis Screen: Does the patient meet any 2 criteria? No. Patient's initial sepsis screen is negative. Does the patient have a suspected source of infection? No. Patient's initial sepsis screen is negative. Risk Assessment: Do you want to hurt yourself or someone else? Patient reports no desire to harm self or others. Onset of symptoms was January 22, 2022. 08:29 Method Of Arrival: Ambulatory kr3 08:29 Acuity: MARSHA 3 kr3 Triage Assessment: 08:32 General: Appears in no apparent distress. comfortable, Behavior is calm, cooperative, kr3 appropriate for age. Pain: Complains of pain in abdomen Pain currently is 2 out of 10 on a pain scale. Historical: - Allergies: 08:26 No Known Allergies; ko1 - PMHx: 08:26 Kidney stone; Ovarian cyst; ko1 - PSHx: 08:26 Pilonidal; ko1 - Immunization history:: Adult Immunizations up to date, Client reports receiving the 2nd dose of the Covid vaccine. - Social history:: Smoking status: Patient denies any tobacco usage or history of. Screenin:44 Abuse screen: Denies threats or abuse. Denies injuries from another. Nutritional ko1 screening: No deficits noted. Tuberculosis screening: No symptoms or risk factors identified. Fall Risk None identified. Assessment: 10:44 Reassessment: Patient is alert, oriented x 3, equal unlabored respirations, skin ko1 warm/dry/pink. Patient denies pain at this time. Patient states symptoms have improved. General: Behavior is calm, cooperative, quiet. Vital Signs: 08:29 BP 138 / 92; Pulse 94; Resp 16; Temp 96.8; Pulse Ox 100% on R/A; Weight 68.04 kg; kr3 Height 5 ft. 1 in. (154.94 cm); 10:43 BP 130 / 82; Pulse 89; Resp 16; Temp 98.2; Pulse Ox 100% ; Pain 0/10; ko1 12:00 BP 110 / 47; Pulse 84; Resp 16; Temp 97.1; Pulse Ox 100% ; Pain 0/10; ko1 13:03 BP 122 / 86; Pulse 95; Resp 14; Pulse Ox 100% ; Pain 0/10; ko1 08:29 Body Mass Index 28.34 (68.04 kg, 154.94 cm) kr3 Vitals: 10:44 Cardiac Rhythm Assessment Regular Sinus rhythm. ko1 ED Course: 08:22 Patient arrived in ED. rg4 08:24 Priscilla Onofre, RN is Primary Nurse. ph 08:24 Pavithra Randall, RN is Primary Nurse. ko1 08:26 Arm band placed on Patient placed in an exam room, on a stretcher. ko1 08:28 Arnie Petit is PHCP. jl9 08:28 Hermann Buckley MD is Attending Physician. jl9 08:31 Triage completed. kr3 08:59 SARS-COV-2 RT PCR (Document "Date of Onset" if Symptomatic) Sent. ko1 08:59 Ptt, Activated Sent. ko1 08:59 PT-INR Sent. ko1 08:59 CMP Sent. ko1 08:59 CBC with Diff Sent. ko1 09:03 Patient has correct armband on for positive identification. Bed in low position. Call ko1 light in reach. Side rails up X 1. Pulse ox on. NIBP on. 09:03 Inserted saline lock: 20 gauge in right antecubital area, using aseptic technique. ko1 Blood collected. 09:51 XRAY Chest Pa And Lat (2 Views) In Process Unspecified. EDMS 10:42 IV Flushed right antecubital with 5 ml normal saline. ko1 11:30 IV is patent, is intact. ko1 12:40 BMP Sent. ko1 12:45 Assisted to bathroom. ko1 12:45 IV Flushed Converted IV to saline lock on right antecubital area. Recheck of. ko1 13:44 BMP Sent. ko1 14:19 No provider procedures requiring assistance completed. IV discontinued, intact, ko1 bleeding controlled, No redness/swelling at site. Pressure dressing applied. Administered Medications: 10:36 Drug: Potassium Chloride 20 mEq Route: IV; Rate: calculated rate; Site: right ko1 antecubital; 10:37 Drug: Potassium Effervescent Tablet 50 mEq Route: PO; ko1 Medication: 10:44 VIS not applicable for this client. ko1 Intake: 12:00 PO: 240ml; IV: 1000ml; Total: 1240ml. ko1 Outcome: 13:53 Discharge ordered by . kenneth 14:19 Condition: stable ko1 14:19 Discharge instructions given to patient, Instructed on discharge instructions, follow up and referral plans. Demonstrated understanding of instructions, follow-up care. 14:19 Discharged to home ambulatory. ko1 14:24 Patient left the ED. ko1 Signatures: Dispatcher [employer] EDPriscilla Wilcox RN RN ph Garcia, Rubi rg4 Linares, John jl9 Inessa Pa RN RN kr3 Pavithra Randall RN RN ko1
[2022-01-22 15:21] VITALS: O2SAT 100
[2022-01-22 15:28] VITALS: TEMP 97.1
[2022-01-22 15:30] VITALS: BP 122/86
== END 2022-01-22 14:24 | disposition home or self-care (01) ==
LOC: ER 08:19
DX: R11.10 Vomiting, unspecified (principal); Z20.822 Contact with and (suspected) exposure to COVID-19
CPT/HCPCS: 85025; 80048; 36415; 85610; 85730; 80053; 71046; 96374; 99284; U0003; J3480

== ENCOUNTER 2023-09-12 06:12 | Day surgery (SDC) | payer BC ==
[2023-09-04 09:08] LABS: Absolute Eosinophils 0.1 K/uL (0-0.5); Absolute Lymphocytes (CBC) 1.3 K/uL (0.7-4.9); Absolute Monocytes 0.4 K/uL (0.1-1.3); Absolute Neutrophil 3.7 K/uL (1.8-8.0); Basophils % 0.5 % (0-1.3); Hematocrit 41.6 % (36.0-45.0); Hemoglobin 14.5 g/dL (12.0-15.0); Lymphocytes % 23.3 % (15.3-44.8); MCH 33.3 pg (27.0-35.0); MCHC 34.9 g/dL (32.0-36.0); MCV 95.5 fL (80-100); MPV 9.1 fL (7.6-11.3); Neutrophils % 68.2 % (41.7-73.7); Nucleated Red Blood Cells % 0.1 % (0-0); Platelets 166 thou/uL (152-406); RBC Red Blood Cell Count 4.35 M/uL (3.86-4.86); Red Cell Distribution Width 13.2 % (12.1-15.2)
[2023-09-04 09:10] LABS: Protime INR 1.09
[2023-09-04 09:23] LABS: Anion Gap 7.5 mEq/L (5.0-15.0); Potassium 4.5 mEq/L (3.5-5.1)
--- NOTE | 2023-09-07 16:59 | EKG ---
Test Date: 2023-09-04 Test Time: 08:45:53 Recyclable Materials Collector: NEVILLE MEASUREMENT RESULTS: Intervals: Rate: 88 OR: 162 QRSD: 84 QT: 354 QTc: 428 [place]: P: 68 OR: 162 QRS: 68 T: 49 INTERPRETIVE STATEMENTS: Normal sinus rhythm with sinus arrhythmia Normal ECG No previous ECG available for comparison Electronically Signed On 09-07-23 16:46:22 CDT by Royer Good
[2023-09-12] MEDS: Ringers Lactate 1,000 ML IV ONE (06:45)
[2023-09-12] MEDS ORDERED: propofoL 200 MG/20 ML VIAL IV ONE (07:22)
[2023-09-12] MEDS ORDERED: LIDOCAINE 1% MPF 5 ML VIAL ONE (07:22)
[2023-09-12] MEDS ORDERED: MIDAZOLAM HCL 2 MG/2 ML INJ ONE (07:22)
[2023-09-12] MEDS ORDERED: FENTANYL CITR 100 MCG/2 ML ONE (07:23)
[2023-09-12] MEDS: SCOPOLAMINE HYDROBROMIDE PATCH TD ONE (07:37)
[2023-09-12] MEDS: CEFAZOLIN SODIUM 2 GM/VIAL ONE (07:39)
[2023-09-12] MEDS ORDERED: CODEINE 30MG/APAP 300MG TAB PO PRN (07:44)
[2023-09-12] MEDS ORDERED: KETOROLAC 30 MG/ML INJ ONE (07:46)
[2023-09-12] MEDS ORDERED: dexAMETHasone 4 MG/ML VIAL ONE (07:46)
[2023-09-12] MEDS ORDERED: ONDANSETRON 4 MG/2 ML VIAL ONE (07:46)
[2023-09-12] MEDS: MEPERIDINE HCL 25 MG/ML SYR ONE (08:31)
[2023-09-12 10:32] VITALS: BP 111/61; TEMP 97.6; O2SAT 99
--- NOTE | 2023-09-12 19:42 | OP ---
Surgeon: CARLOS MCKEON Preoperative Diagnoses: 1.Left nephrolithiasis. 2.Recurrent gross hematuria. Postoperative Diagnoses: 1.Left nephrolithiasis. 2.Recurrent gross hematuria. Principal Procedure: Left extracorporeal shock wave lithotripsy/ESWL. Indication For Procedure: Ms. Gutierrez presented to the [facility] with recurrent gross hematuri a and findings of bilateral small volume nephrolithiasis with a dominant 6 mm calculus present in her left renal pelvis, which was likely the source of her recurrent gross hematuria. She underwent outp atient cystoscopic evaluation which was unremarkable, and the remainder of the urographic assessment performed with CT was also unremarkable. Procedure In Detail: The patient was consented in the preoperative holding area before being transfe rred to the operative suite where general anesthesia was induced. She was given Ancef 2 g IV antimic robial prophylaxis, and pneumo boots were provided for DVT prophylaxis. She was placed supine on the shockwave lithotripsy table with a water bath beneath her flank and fluoroscopic imagery was used to target the stone in the left-right and dorsal-ventral positioning. Once adequately targeted, shockw ave lithotripsy was begun. The power was slowly ramped up over the course of 500 shocks to a maximum power of 6, and a 2-minute pause was provided between 200 and 300 shocks. After approximately 800 s hocks had been delivered, the stone became much more difficult to visualize with a therapeutic head i n, and so after 1000 shocks, we backed the therapeutic head out and again reassessed fluoroscopically . There was essentially a cloud of dust with a very tiny, probably 2 mm dominant fragment still in t he center of that dust. As a result, we targeted this and continued shock wave lithotripsy for an ad ditional 1000 shocks for a total of 2000 shocks delivered. At this point, assessment with a therapeu tic head again removed, revealed only evidence of density consistent with a cloud of dust with no dom inant fragments remaining. As a result, shockwave lithotripsy was discontinued, and the patient was awakened from general anesthesia. She was then transferred to a stretcher before being transferred t o the recovery room in good condition. Complications: None. Discharge Disposition: She should follow up in about a month's time and have a KUB performed a few d ays prior to that followup appointment to confirm resolution of the stone visible there. Subsequent followup will be determined based on the persistence of any recurrent gross hematuria, though we will also perform a metabolic evaluation relative to her bilateral nephrolithiasis. KYARA/MODL Voice ID: [id number] Report ID: [id number]
== END 2023-09-12 09:50 | disposition home or self-care (01) ==
LOC: OR 06:12
PROVIDERS: ATTEND Urology
PROC: 0TF4XZZ Fragmentation in Left Kidney Pelvis, External Approach (ICD-10-PCS; principal; 2023-09-12 07:30)
DX: N20.0 Calculus of kidney (principal); R31.0 Gross hematuria
CPT/HCPCS: 93005; 87088; 85025; 87086; 80048; 36415; 81025; 85610; 50590; J2704; J1100; J2001; J2250; J3010; J2175; J2405; J7120

== ENCOUNTER 2024-03-24 16:50 | Emergency (ER) | payer BC ==
--- OUTSIDE RECORDS SUMMARY | 2024-03-24 16:52 | XMS REPORT | Continuity of Care Document ---
Author Name Unknown Address [address] [place] [address] [facility] thconnect Address [address] [place] [address] Care Team Providers Care Tester [employer] Name Role Phone Omero Anna Attending Clinician Unavailable [email or web address] Attending Clinician Unavaila ble [email or web address]_S Admitting Clinician Unavaila ble Payers Payer Name Policy Type Policy Number Effective Date Expirati on Date Source [facility] 6 [id number] [facility] Problems Condition Name Condition Details Condition Category Status Onset Date Resolution Date Last Treatment Date Treating Clinician Comments Source [id number] Microscopi c hematuria Problem [facility] [id number] Gross hematuria Problem [facility] [id number] Recurrent kidney stones Problem [facility] [id number] Enterococc us as the cause of diseases classified elsewhere Problem [facility] [id number] Urinary tract infection, site not specified Problem [facility] [id number] Unspecifie d abdominal pain Problem [facility] [id number] Other chronic pain Problem [facility] Nephrolith iasis Left nephrolith iasis Problem [facility] [id number] Lower urinary tract symptoms (LUTS) Problem [facility] [id number] Recurrent gross hematuria Problem [facility] Social History Social Habit Start Date Stop Date Quantity Comments Source History of Tobacco Use [facility] Sex Assigned At [facility] Smoking Status Start Date Stop Date Source Former Smoker 2023-10-16 00:00:00 2023-10-16 00:00:00 [facility] Medications Ordered Medication Name Filled Medication Name Start Date Stop Date Current Medication? Ordering Clinician Indication Dosage Frequency Signature (SIG) Comments Components Source Tamsulosin HCl 0.4 MG Tamsulosin HCl 0.4 MG No 1{capsu le} QD Tamsulosin HCl 0.4 MG Sprintec 28 0.25-35 MG-MCG Sprintec 28 0.25-35 MG-MCG No 1{table t} QD Sprintec 28 0.25-35 MG-MCG Ketorolac Tromethamin e 10 MG Ketorolac Tromethamin e 10 MG No QID Ketorolac Tromethami ne 10 MG Vital Signs Vital Name Observation Time Observation Value Comments S ource height 2023-10-16 14:00:00 61 [in_i] Commo n [facility] weight 2023-10-16 14:00:00 171.6 [lb_av] Co mmon [facility] temperature 2023-10-16 14:00:00 97.4 [degF] Com mon [facility] bmi 2023-10-16 14:00:00 32.42 kg/m2 Comm on [facility] oximetry 2023-10-16 14:00:00 97 % Commo n [facility] respiratory rate 2023-10-16 14:00:00 18 /min [facility] blood pressure systolic 2023-10-16 14:00:00 126 mm[Hg] [facility] blood pressure diastolic 2023-10-16 14:00:00 68 mm[Hg] [facility] height 2023-08-10 08:15:00 61 [in_i] Commo n [facility] weight 2023-08-10 08:15:00 166 [lb_av] Comm on [facility] temperature 2023-08-10 08:15:00 97.8 [degF] Com mon [facility] bmi 2023-08-10 08:15:00 31.36 kg/m2 Comm on [facility] oximetry 2023-08-10 08:15:00 97 % Commo n [facility] respiratory rate 2023-08-10 08:15:00 18 /min [facility] blood pressure systolic 2023-08-10 08:15:00 123 mm[Hg] [facility] blood pressure diastolic 2023-08-10 08:15:00 84 mm[Hg] [facility] Encounters Start Date/Time End Date/Time Encounter Type Admission Type Attending [facility] Facility Care Department Encounter ID Source 2024-02-19 13:44:00 Outpatient Anna, Omero STLMLC STLMLC [id number] [facility] 2023-08-10 08:13:01 Outpatient Anna, Omero STLMLC STLMLC [id number] [facility] 2023-10-16 00:00:00 2023-10-16 00:00:00 OFFICE VISIT ESTAB PT LEVEL 3 STLMLC STLMLC [id number] [facility] 2023-08-10 00:00:00 2023-08-10 00:00:00 OFFICE VISIT NEW PT LEVEL 4 STLMLC STLMLC [id number] [facility] 2023-03-12 00:00:00 2023-03-12 00:00:00 Outpatient [email or web address] diyala_S PRIV PRIV [id number] [facility] Medical Results Test Description Test Time Test Comments Results Result Co mments Source Abdomen 1 View (KUB) Abdomen 1 View (KUB)
[2024-03-24 17:33] LABS: Specific Gravity 1.008 (1.005-1.030); Sqamous Epithelial <5 /HPF (None Seen); Urine Bacteria <20 /HPF (<20); Urine Bilirubin NEGATIVE (Negative); Urine Blood 1+ (Negative); Urine Clarity Turbid (Clear); Urine Color Light-Yellow (Yellow); Urine Culture Reflex Order NOT NEEDED; Urine Glucose NEGATIVE (Negative); Urine Ketones NEGATIVE (Negative); Urine Microscopic Reflex YN ORDER UMIC; Urine Mucus Slight /HPF (None Seen); Urine Nitrite NEGATIVE (Negative); Urine Protein TRACE (Negative); Urine RBC <5 /HPF (None Seen); Urine Urobilinogen Normal (Normal); Urine WBC <5 /HPF (<5); Urine Yeast (Budding) Trace /HPF (None Seen); Urine pH 6.5 (5.0-7.0)
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
[2024-03-24] MEDS ORDERED: ACETAMINOPHEN 500 MG TAB ONE (18:55)
[2024-03-24] MEDS ORDERED: IBUPROFEN 400 MG TAB ONE (18:55)
[2024-03-24 19:44] VITALS: TEMP 97.9
[2024-03-24 19:45] VITALS: BP 130/90; O2SAT 100
== END 2024-03-24 19:11 | disposition home or self-care (01) ==
LOC: ER 16:50
DX: S06.0X9A Concussion with loss of consciousness of unspecified duration, initial encounter (principal); S00.531A Contusion of lip, initial encounter; S00.532A Contusion of oral cavity, initial encounter; S50.12XA Contusion of left forearm, initial encounter; S50.11XA Contusion of right forearm, initial encounter; S40.022A Contusion of left upper arm, initial encounter; S40.021A Contusion of right upper arm, initial encounter; Z04.71 Encounter for examination and observation following alleged adult physical abuse
CPT/HCPCS: 70450; 70486; 72125; 76377; 81001; 81025; 99284

== ENCOUNTER 2024-05-17 15:34 | Emergency (ER) | payer BC ==
--- OUTSIDE RECORDS SUMMARY | 2024-05-17 15:54 | XMS REPORT | Continuity of Care Document ---
Author Name Unknown Address [address] [facility] 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 Phone Desi العلي Primary Care Physician Omero Anna Attending Clinician Unavailable Godfrey Orr MD Attending Clinician [phone] RADIOLOGY Attending Clinician Unavailable DYLON KHAN Attending Clinician Unavailable DYLON KHAN Attending Clinician Unavailable DYLON KHAN Admitting Clinician Unavailable Payers Payer Name Policy Type Policy Number Effective Date Expirati on Date Source [facility] 6 [id number] [facility] Problems Condition Name Condition Details Condition Category Status Onset Date Resolution Date Last Treatment Date Treating Clinician Comments Source [id number] Microscopi c hematuria Problem [facility] [id number] Gross hematuria Problem [facility] [id number] Recurrent kidney stones Problem [facility] [id number] Enterococc us as the cause of diseases classified elsewhere Problem [facility] [id number] Urinary tract infection, site not specified Problem [facility] [id number] Unspecifie d abdominal pain Problem [facility] [id number] Other chronic pain Problem [facility] Nephrolith iasis Left nephrolith iasis Problem [facility] [id number] Lower urinary tract symptoms (LUTS) Problem [facility] [id number] Recurrent gross hematuria Problem [facility] Allergies, Adverse Reactions, Alerts Allergy Name Allergy Type Status Severity Reaction(s) Onset Date Inactive Date Treating Clinician Comments Source NO KNOWN ALLERGIE S Drug Class Active [facility] Social History Social Habit Start Date Stop Date Quantity Comments Source Sexual orientation U [facility] History of Tobacco Use [facility] Sex assigned at 1990 00:00:00 1990 00:00:00 [facility] Smoking Status Start Date Stop Date Source Tobacco smoking consumption unknown [facility] Former Smoker 2023-10-16 00:00:00 2023-10-16 00:00:00 [facility] Medications Ordered Medication Name Filled Medication [...] No QID Ketorolac Tromethami ne 10 MG Immunizations Ordered Immunization Name Filled Immunization Name Date Status Comments Source SARS-COV-2 COVID-19 PFIZER VACCINE 2020-09-12 00:00:00 Completed [facility] SARS-COV-2 COVID-19 PFIZER VACCINE 2020-08-22 00:00:00 Completed [facility] Vital Signs Vital Name Observation Time Observation Value Comments S narinderce height 2023-10-16 14:00:00 61 [in_i] Commo n [facility] weight 2023-10-16 14:00:00 171.6 [lb_av] Co mmon [facility] temperature 2023-10-16 14:00:00 97.4 [degF] Com [facility] bmi 2023-10-16 14:00:00 32.42 kg/m2 Comm on [facility] oximetry 2023-10-16 14:00:00 97 % Commo n [facility] respiratory rate 2023-10-16 14:00:00 18 /min [facility] blood pressure systolic 2023-10-16 14:00:00 126 mm[Hg] [facility] blood pressure diastolic 2023-10-16 14:00:00 68 mm[Hg] [facility] height 2023-08-10 08:15:00 61 [in_i] Commo n [facility] weight 2023-08-10 08:15:00 166 [lb_av] Comm on [facility] temperature 2023-08-10 08:15:00 97.8 [degF] Com [facility] bmi 2023-08-10 08:15:00 31.36 kg/m2 Comm on [facility] oximetry 2023-08-10 08:15:00 97 % Commo n [facility] respiratory rate 2023-08-10 08:15:00 18 /min [facility] blood pressure systolic 2023-08-10 08:15:00 123 mm[Hg] [facility] blood pressure diastolic 2023-08-10 08:15:00 84 mm[Hg] [facility] Encounters Start Date/Time End Date/Time Encounter Type Admission Type Attending [facility] Care Facility Care Department Encounter ID Source 2024-02-19 13:44:00 Outpatient AnnaOmero [facility] [id number] [facility] 2023-08-10 08:13:01 Outpatient Omero Anna [facility] [id number] [facility] 2024-05-13 00:00:00 2024-05-13 11:22:19 Letter (Out) Godfrey Orr [facility] [id number] [facility] 2024-04-22 00:00:00 2024-04-22 00:00:00 Outpatient R RADIOLOGY [facility] [id number] [facility] 2024-04-19 10:49:00 2024-04-19 13:19:00 Emergency X DYLON KHAN [facility] ERT [id number] [facility] 2023-10-16 00:00:00 2023-10-16 00:00:00 OFFICE VISIT ESTAB PT LEVEL 3 [facility] [id number] [facility] 2023-08-10 00:00:00 2023-08-10 00:00:00 OFFICE VISIT NEW PT LEVEL 4 [facility] [id number] [facility] Results Test Description Test Time Test Comments Results Result Co mments Source Abdomen 1 View (KUB) Abdomen 1 View (KUB)
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
[2024-05-17] MEDS ORDERED: VITAMIN K (ADULT) 10 MG/ML ONE (16:27)
[2024-05-17] MEDS ORDERED: dexAMETHasone 10 MG/ML VIAL ONE (16:27)
[2024-05-17] MEDS ORDERED: TDAP (DIPHTH,PERTUSS(ACELL),TET VAC) 0.5 ML VIAL IMVAC ONE (16:28)
[2024-05-17] MEDS ORDERED: PIPERACIL/TAZO 3.375 GM VIAL IV ONE (16:28)
[2024-05-17] MEDS ORDERED: NA CHLORIDE 0.9% 100 ML ONE ×2 (16:28→16:40)
[2024-05-17] MEDS ORDERED: NA CHLORIDE 0.9% 1,000 ML ONE (16:28)
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
[2024-05-17] MEDS ORDERED: LEVETIRACETAM 500 MG/5 ML VIAL IV ONE (16:40)
[2024-05-17 16:45] LABS: Absolute Lymphocytes (CBC) 0.2 K/uL (0.7-4.9); Absolute Neutrophil 12.8 K/uL (1.8-8.0); Hematocrit 40.8 % (36.0-45.0); Hemoglobin 13.9 g/dL (12.0-15.0); Lymphocytes % 1.4 % (15.3-44.8); MCH 34.8 pg (27.0-35.0); MCHC 34.1 g/dL (32.0-36.0); MCV 102.2 fL (80-100); MPV 9.7 fL (7.6-11.3); Neutrophils % 91.6 % (41.7-73.7); Platelets 115 thou/uL (152-406); RBC Red Blood Cell Count 3.99 M/uL (3.86-4.86)
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
[2024-05-17 16:53] LABS: PT Prothrombin Time 13.1 SECONDS (9.4-12.5); PTT, Activated Partial Thromb 33.8 SECONDS (24.3-36.9); Protime INR 1.18
[2024-05-17 16:55] LABS: Barbiturates NEGATIVE (NEGATIVE); Benzodiazepines NEGATIVE (NEGATIVE); Cocaine NEGATIVE (NEGATIVE); METHAMPHETAM POSITIVE (NEGATIVE); Methadone NEGATIVE (NEGATIVE); Opiates NEGATIVE (NEGATIVE); Phencyclidine NEGATIVE (NEGATIVE); THC Cannibis NEGATIVE (NEGATIVE)
[2024-05-17] MEDS ORDERED: MIDAZOLAM HCL 2 MG/2 ML INJ ONE (17:02)
[2024-05-17] MEDS ORDERED: propofoL 1,000 MG/100 ML VIAL IV ONE (17:02)
[2024-05-17 17:06] LABS: ALT/SGPT 158 U/L (13-56); AST/SGOT 469 U/L (15-37); Albumin 3.5 g/dL (3.4-5.0); Albumin/Globulin Ratio 0.7 (1.1-1.8); Alkaline Phosphatase 135 U/L (45-117); Anion Gap 24.8 mEq/L (5.0-15.0); BUN Blood Urea Nitrogen 10 mg/dL (7-18); Bicarbonate 17 mEq/L (21-32); Bilirubin Indirect, Calculated 0.9 mg/dL (0.2-0.8); Bilirubin Total 1.9 mg/dL (0.2-1.0); Globulin 4.8 g/dL (2.3-3.5); Glomerular Filtration Rate 42 ml/min (=/>90); Glucose Level 92 mg/dL (74-106); Lipase 21 U/L (13-75); NT PRO-BNP 553 pg/mL (<125); Potassium 2.8 mEq/L (3.5-5.1); Protein, Total 8.3 g/dL (6.4-8.2); Sodium Level 135 mEq/L (136-145)
[2024-05-17 17:08] LABS: Blood O2 Saturation 99.2 % (92-98.5)
[2024-05-17 17:08] LABS: Troponin High Sensitivity 144.6 pg/mL (<58.9)
[2024-05-17 17:09] LABS: Arterial Blood Carboxyhemoglob 0.9 % (0-1.5); Blood Gas Oxyhemoglobin 96.4 % (94-97); Blood Gas THB 14.1 g/dl (12-18)
--- NOTE | 2024-05-17 20:11 | RAD REPORT ---
Procedure: Chest Single View HISTORY: Endotracheal tube placement FINDINGS: The tip of and endotracheal tube lies 16 mm above the top of the aortic arch
--- NOTE | 2024-05-27 11:20 | EKG ---
Test Date: 2024-05-17 Test Time: 15:37:00 Masonry Installer: MELODY MEASUREMENT RESULTS: Intervals: Rate: 154 VT: 130 QRSD: 78 QT: 328 QTc: 525 [place]: P: 60 VT: 130 QRS: 64 T: 32 INTERPRETIVE STATEMENTS: Sinus tachycardia Cannot rule out Anterior infarct, age undetermined Abnormal ECG Compared to ECG 09/04/2023 08:45:53 Myocardial infarct finding now present Sinus rhythm no longer present Sinus arrhythmia no longer present Electronically Signed On 05-27-24 11:06:23 [employer] MACH[employer] PERSON by Herbert Gamino
== END 2024-05-17 17:48 | disposition short-term general hospital (02) ==
LOC: ER 15:34
DX: S06.5X0A Traumatic subdural hemorrhage without loss of consciousness, initial encounter (principal); J96.00 Acute respiratory failure, unspecified whether with hypoxia or hypercapnia; R65.21 Severe sepsis with septic shock; F55.8 Abuse of other non-psychoactive substances; F10.10 Alcohol abuse, uncomplicated; E87.6 Hypokalemia; D72.829 Elevated white blood cell count, unspecified; N17.9 Acute kidney failure, unspecified; R79.89 Other specified abnormal findings of blood chemistry; Z91.81 History of falling; Y04.8XXA Assault by other bodily force, initial encounter
CPT/HCPCS: 96365; 96367; 93005; 85025; 80048; 36415; 82140; 83735; 85610; 80076; 83605; 85730; 84484; 83690; 83880; 80307; 70450; 72125; 71260; 74177; 71045; 82805; 96375; 99291; 80143; 80179; 82077; 36600; 94002; Q9967; J2704; J1953; J3430; J2543; J2250; J1100; J7030

== ENCOUNTER 2025-01-08 10:00 | Emergency (ER) | payer BC ==
--- OUTSIDE RECORDS SUMMARY | 2025-01-08 10:11 | XMS REPORT | Continuity of Care Document ---
Author Name Unknown Address [address] [facility]. [address] [place] [address] Organization [facility] [place] Address [address] [facility]. [address] [place] [address] Care Team Providers Care Windmill Technician Name Role Phone Omero Anna Primary Care Physician [phone] Omero Anna Attending Clinician Unavailable ABIGAIL MAS Attending Clinician Unavailable [facility] Trauma Attending Clinician Candi vailaCHAUNCEY Askew Attending Clinician Unavailab Sue NOLAND, Art Barker Attending Clinician [phone] Shakeel NOLAND, Chauncey Ricks Attending Clinician [phone] SOPHIA FLETCHER Attending Clinician Unavailab Balbir Tran DO Attending Clinician [phone] Nick NOLAND, Sarbjit Attending Clinician [phone] Sophia Fletcher MD Attending Clinician [phone] System, Provider Not In Attending Clinician Unav ailable ELOY HILL Attending Clinician Unavailable ART SANCHEZ Attending Clinician Unavail able Doctor Unassigned, [place] Attending Clinician U navailable ABRAN BARRERA Attending Clinician Gurpreet Hawkins MD, Desi Lopez Attending Clinician [phone] Louie NOLAND, Abran Ignacio Attending Clinician + [phone] Tigre Gonzales MD Attending Clinician [phone] Godfrey Orr MD Attending Clinician [phone] RADIOLOGY Attending Clinician Unavailable Dylon Castellanos MD Attending Clinician [phone] DYLON CASTELLANOS Attending Clinician Unavailable DYLON CASTELLANOS Attending Clinician Unavailable ART SANCHEZ Admitting Clinician Unavail able Laura NOLAND, Art Barker Admitting Clinician [phone] ELOY HILL Admitting Clinician Unavailable ABRAN BARRERA Admitting Clinician Gurpreet Barrera MD, Abran Ignacio Admitting Clinician + [phone] DYLON CASTELLANOS Admitting Clinician Unavailable Payers Payer Name Policy Type Policy Number Effective Date Expiration Date Source [facility] [id number] 2022 00:00:[address] 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 8 00:00: 00 [facility] Skull fracture (CMS/HCC) Skull fracture (CMS/HCC) Disease Active 12-07 00:00: 00 [facility] Subdural hematoma Subdural hematoma Disease Active 12-06 00:00: 00 [facility] 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 08-01 00:00: 00 [facility] Simple obesity Simple obesity Disease Recurre nce - 00:00: 00 [facility] Subdural hemorrhage following injury, no loss of consciousn ess Subdural hemorrhage following injury, no loss of consciousn ess Disease Active 06-13 00:00: 00 [facility] SDH (subdural hematoma) SDH (subdural hematoma) Disease Active 05-17 00:00: 00 [facility] [id number] Microscopi c hematuria Problem [facility] [id number] Gross hematuria Problem [facility] [id number] Recurrent kidney stones Problem [facility] [id number] Enterococc us as the cause of diseases classified elsewhere Problem [facility] [id number] Urinary tract infection, site not specified Problem [facility] [id number] Unspecifie d abdominal pain Problem [facility] [id number] Other chronic pain Problem [facility] Nephrolith iasis Left nephrolith iasis Problem [facility] [id number] Lower urinary tract symptoms (LUTS) Problem [facility] [id number] Recurrent gross hematuria Problem [facility] ADHD ADHD Disease Active [facility] Skull defect Skull defect Disease Resolve d 3- 00:00: 00 2024-07-21 00:00:00 2024-07-21 07:42:48 [facility] Traumatic subdural hemorrhage Traumatic subdural hemorrhage Disease Resolve d - 00:00: 00 2024-07-21 00:00:00 2024-07-21 07:42:45 [facility] History of transfusio n History of transfusio n Disease Resolve d 1- 00:00: 00 2024-07-21 00:00:00 2024-07-21 07:42:47 [facility] Allergies, Adverse Reactions, Alerts Allergy Name Allergy Type Status Severity Reaction(s) Onset Date Inactive Date Treating Clinician Comments Source Vancomyc in Propensi ty to adverse reaction s Active Rash 12-06 00:00: 00 Red man syndrome [facility] NO KNOWN ALLERGIE S Drug Class Active [facility] Social History Social Habit Start Date Stop Date Quantity Comments Source Sexual orientation [facility] Possible [facility] History of Tobacco Use [facility] Gender identity [facility] Alcoholic beverage intake 2024-12-13 00:00:00 2024-12-13 00:00:00 Ex-drinker (finding) [facility] History of Social function 2024-12-12 00:00:00 2024-12-12 00:00:00 [facility] Tobacco use and exposure 2024-06-13 00:00:00 2024-06-13 00:00:00 Smokeless tobacco non-user [facility] Sex 2024-05-17 16:29:49 2024-05-17 16:29:49 Female (finding) [facility] Sex assigned at 1990 00:00:00 1990 00:00:00 F [facility] Smoking Status Start Date Stop Date Source Tobacco smoking consumption unknown [facility] Never smoked tobacco [facility] Former Smoker 2023-10-16 00:00:00 2023-10-16 00:00:00 [facility] Medications Ordered Medication Name Filled Medication Name Start Date Stop Date Current Medication? Ordering Clinician Indication Dosage Frequency Signature (SIG) Comments Components Source amphetamine -dextroamph etamine XR (Adderall XR) 5 MG 24 hr capsule amphetamine -dextroamph etamine XR (Adderall XR) 5 MG 24 hr capsule 12-16 14:44: 46 Yes 10mg Take 10 mg by mouth every morning. Do not crush or chew. [facility] sulfamethox azole-trime thoprim (Bactrim DS) 800-160 MG per tablet sulfamethox azole-trime thoprim (Bactrim DS) 800-160 MG per tablet 12-16 00:00: 00 01-24 23:59 :00 No 2{tbl} Q.5D Take 2 tablets by mouth in the morning and 2 tablets in the evening. [facility] levoFLOXaci n (Levaquin) 750 MG tablet levoFLOXaci n (Levaquin) 750 MG tablet 12-16 00:00: 00 01-24 23:59 :00 No 750mg QD Take 1 tablet by mouth 1 time each day. [facility] gabapentin (Neurontin) 300 MG capsule gabapentin (Neurontin) 300 MG capsule 12-16 00:00: 00 12-31 23:59 :00 No 300mg [id number] 3D Take 1 capsule by mouth in the morning and 1 capsule at noon and 1 capsule before bedtime. Do all this for 15 days. [facility] Zabrina methocarbam ol (Robaxin) 500 MG tablet methocarbam ol (Robaxin) 500 MG tablet 12-16 00:00: 00 12-30 23:59 :00 No 500mg Q8H Take 1 tablet by mouth every 8 hours if needed for muscle spasms (Headache) for up to 14 days. [facility] Zabrina acetaminoph en (Tylenol) 325 MG tablet acetaminoph en (Tylenol) 325 MG tablet 12-16 00:00: 00 12-26 23:59 :00 No 650mg Q6H Take 2 tablets by mouth every 6 hours if needed for mild pain (1-3) for up to 10 days. [facility] Zabrina levETIRAcet am (Keppra) 500 MG tablet levETIRAcet am (Keppra) 500 MG tablet 12-16 00:00: 00 12-20 23:59 :00 No 500mg Q.5D Take 1 tablet by mouth in the morning and 1 tablet before bedtime. Do all this for 8 doses. [facility] Zabrina methocarbam ol (Robaxin) tablet 500 mg methocarbam ol (Robaxin) tablet 500 mg 12-15 07:15: 00 Yes 500mg [id number] 3D 500 mg, Oral, Every 8 hours scheduled, First dose on 12/15/24 at 0715 [facility] Zabrina gabapentin (Neurontin) capsule 300 mg gabapentin (Neurontin) capsule 300 mg 12-15 07:15: 00 Yes 300mg [id number] 3D 300 mg, Oral, Every 8 hours scheduled, First dose on Mon12/15/24 at 0715 [facility] vancomycin in NS (Vancocin) IVPB 1,500 mg vancomycin in NS (Vancocin) IVPB 1,500 mg 12-14 23:00: 00 12-27 10:59 :00 No 1500mg Q12H 1,500 mg, Intravenou s, at 83.3 mL/hr, Administer over 180 Minutes, Every 12 hours, First dose (after last reorder) on 12/14/24 at 2300, For 25 doses, premix bag, Suspected Indication (Select all that apply): CUSHION GUM APPLICATOR Infection/ Epidural Abscess [facility] heparin injection 5,000 Units heparin injection 5,000 Units 12-14 16:00: 00 Yes 5000U Q8H 5,000 Units, Subcutaneo us, Every 8 hours, First dose on Mon12/14/24 at 1600 [facility] citalopram (CeleXA) tablet 10 mg citalopram (CeleXA) tablet 10 mg 12-14 09:00: 00 Yes 10mg QD 10 mg, Oral, Daily, First dose on 12/14/24 at 0900 [facility] vancomycin in NS (Vancocin) IVPB 1,500 mg vancomycin in NS (Vancocin) IVPB 1,500 mg 12-14 09:00: 00 12-14 11:57 :27 No 1500mg Q12H 1,500 mg, Intravenou s, at 83.3 mL/hr, Administer over 180 Minutes, Every 12 hours, First dose on 12/14/24 at 0900, For 2 doses, premix bag, Suspected Indication (Select all that apply): CUSHION GUM APPLICATOR Infection/ Epidural Abscess [facility] methocarbam ol (Robaxin) tablet 500 mg methocarbam ol (Robaxin) tablet 500 mg 12-14 08:06: 18 Yes 500mg Q6H 500 mg, Oral, Every 6 hours PRN, muscle spasms, Starting on 12/14/24 at 0806 [facility] sodium chloride 0.9 % infusion sodium chloride 0.9 % infusion 12-14 00:00: 00 12-14 08:05 :54 No 75mL/h 75 mL/hr, Intravenou s, Continuous , Starting on Mon12/14/24 at 0000 [facility] cefTRIAXone (Rocephin) 2 g in sodium chloride 0.9 % 100 mL IVPB-MB+ cefTRIAXone (Rocephin) 2 g in sodium chloride 0.9 % 100 mL IVPB-MB+ 12-13 21:00: 00 12-27 20:59 :00 No 2g Q12H 2 g, Intravenou s, at 200 mL/hr, Administer over 30 Minutes, Every 12 hours, First dose on Mon12/13/24 at 2100, For 14 days, Mini-Bag Plus bag. Break seal and mix before use, as follows: For liquid drug vials, skip to step 2. 1. Hold bag with vial down. Squeeze solution into vial until half-full. Shake to suspend drug in solution. 2. Hold bag with vial upside down. Squeeze bag to force air into vial, then release to drain suspended drug from vial into bag. 3. Repeat above until vial is empty of drug and solution is thoroughly mixed. Ensure drug is completely dissolved. Do not remove drug vial. 4. Remove port protector, attach admin set per its instructio ns, then hang container from IV pole and prime set per directions . Do not use in series connection s. 5. Ensure the vial is empty of drug and in solution, then administer medication as ordered. Use within specified BUD., Suspected Indication (Select all that apply): CUSHION GUM APPLICATOR Infection/ Epidural Abscess [facility] vancomycin 1,750 mg in sodium chloride 0.9 % 250 mL IVPB vancomycin 1,750 mg in sodium chloride 0.9 % 250 mL IVPB 12-13 17:45: 00 12-13 22:55 :00 No 1750mg 1,750 mg, Intravenou s, at 142.5 mL/hr, Administer over 120 Minutes, Once, On Mon12/13/24 at 1800, For 1 dose, Suspected Indication (Select all that apply): CUSHION GUM APPLICATOR Infection/ Epidural Abscess [facility] promethazin e (Phenergan) 6.25 mg in sodium chloride 0.9 % 50 mL IVPB promethazin e (Phenergan) 6.25 mg in sodium chloride 0.9 % 50 mL IVPB 12-13 17:45: 00 12-13 18:18 :00 No 6.25mg 6.25 mg, Intravenou s, at 100 mL/hr, Administer over 30 Minutes, Once, On Mon12/13/24 at 1745, For 1 dose [facility] metoclopram sabrina (Reglan) injection 10 mg metoclopram sabrina (Reglan) injection 10 mg 12-13 17:33: 15 Yes 10mg Q6H 10 mg, Intravenou s, Every 6 hours PRN, nausea, vomiting, Starting on Mon12/13/24 at 1733, 2nd line. [facility] sennosides (Senokot) tablet 8.6 mg sennosides (Senokot) tablet 8.6 mg 12-13 17:00: 00 Yes 1{tbl} Q.5D 8.6 mg (1 tablet), Oral, 2 times daily, First dose on Mon12/13/24 at 1700, [facility] Ensure Enlive liquid 1 Container Ensure Enlive liquid 1 Container 12-13 17:00: 00 Yes 1{conta iner} Q.5D 1 Container, Oral, 2 times daily, First dose on Mon12/13/24 at 1700, [facility] polyethylen e glycol (PEG) 3350 (Miralax) packet 17 g polyethylen e glycol (PEG) 3350 (Miralax) packet 17 g 12-13 17:00: 00 12-15 10:08 :49 No 17g Q.5D 17 g, Oral, 2 times daily, First dose on Mon12/13/24 at 1700, [facility], Dissolve 17 g in 120 to 240 mL (4 to 8 ounces) of beverage. [facility] docusate sodium (Colace) capsule 50 mg docusate sodium (Colace) capsule 50 mg 12-13 17:00: 00 12-15 10:09 :09 No 50mg Q.5D 50 mg, Oral, 2 times daily, First dose on Mon12/13/24 at 1700, [facility] Vancomycin Dosing per Pharmacy Vancomycin Dosing per Pharmacy 12-13 16:36: 02 Yes 1{each} [Order 1 Start] Name: Pharmacy to dose vancomycin Signed Summary: STAT, Once, On Mon12/13/24 at 1637, For 1 occurrence , Suspected Indication (Select all that apply): CUSHION GUM APPLICATOR Infection/ Epidural Abscess, Current Renal Status: Stable renal function not on renal placement therapy, Anticipate d Duration (in Days): 14 [Order 1 End] [Order 2 Start] Name: Vancomycin Dosing per Pharmacy Signed Summary: 1 each, Does not apply, As needed, other, Dose per pharmacy., Starting on Mon12/13/24 at 1636, Slow infusion. This order is a placeholde r as a reminder that vancomycin is being dosed per pharmacy. Vancomycin doses will be entered as a separate order. [Order 2 End] [facility] oxyCODONE (Roxicodone ) immediate release tablet 5 mg oxyCODONE (Roxicodone ) immediate release tablet 5 mg 12-13 15:54: 38 12-15 07:00 :42 No 5mg Q6H 5 mg, Oral, Every 6 hours PRN, moderate pain (4-6), Starting on Mon12/13/24 at 1554 [facility] acetaminoph en (Tylenol) tablet 650 mg acetaminoph en (Tylenol) tablet 650 mg 12-13 15:53: 52 Yes 650mg Q6H 650 mg, Oral, Every 6 hours PRN, mild pain (1-3), Starting on Mon12/13/24 at 1553, Max acetaminop hen = 4000mg/day (4gm/day) [facility] morphine PF injection 2 mg morphine PF injection 2 mg 12-13 15:53: 25 12-15 07:00 :30 No 2mg Q4H 2 mg, Intravenou s, Every 4 hours PRN, severe pain (7-10), Starting on Mon12/13/24 at 1553 [facility] sodium chloride (NS) 0.9 % flush 10 mL sodium chloride (NS) 0.9 % flush 10 mL 12-13 13:30: 00 Yes 10mL Q12H 10 mL, Intravenou s, Every 12 hours, First dose on Mon12/13/24 at 1330, [facility], Administer at least once every 12 hours [facility] levETIRAcet am (Keppra) tablet 500 mg levETIRAcet am (Keppra) tablet 500 mg 12-13 13:30: 00 12-20 08:59 :00 No 500mg Q.5D 500 mg, Oral, Every 12 hours scheduled, First dose on Mon12/13/24 at 1330, For 14 doses, [facility] levETIRAcet am (Keppra) injection 500 mg levETIRAcet am (Keppra) injection 500 mg 12-13 13:30: 00 12-13 15:51 :42 No 500mg Q.5D 500 mg, Intravenou s, Every 12 hours scheduled, First dose on Mon12/13/24 at 1330, [facility], Administer over 3 minutes IV push for doses up to 1500 mg. [facility] naloxone (Narcan) injection 0.04 mg naloxone (Narcan) injection 0.04 mg 12-13 13:24: 15 Yes .04mg 0.04 mg, Intravenou s, As needed, opioid reversal, every 2 mins PRN for Narcotic Reversal, Starting on Mon12/13/24 at 1324, For 8 doses, [facility], Give up to 8 doses of 0.04 mg as needed to reverse over sedation. Keep available for immediate use. Call ordering physician STAT. (Dilute 0.4 mg/mL in 9 mL of saline) [facility] ondansetron (Zofran) injection 4 mg ondansetron (Zofran) injection 4 mg 12-13 13:24: 15 Yes 4mg Q6H 4 mg, Intravenou s, Every 6 hours PRN, nausea, vomiting, Starting on Mon12/13/24 at 1324, [facility] oxyCODONE (Roxicodone ) immediate release tablet 5 mg oxyCODONE (Roxicodone ) immediate release tablet 5 mg 12-13 13:21: 51 12-13 13:30 :00 No 5mg 5 mg, Oral, Once as needed, moderate pain (4-6), Starting on Mon12/13/24 at 1321, For 1 dose, Recovery (only) [facility] HYDROmorpho ne PF (Dilaudid) injection 0.5 mg HYDROmorpho ne PF (Dilaudid) injection 0.5 mg 12-13 13:21: 49 12-13 15:32 :41 No .5mg 0.5 mg, Intravenou s, Every 10 min PRN, severe pain (7-10), Starting on Mon12/13/24 at 1321, For 4 doses, Recovery (only), Hold for respirator y rate or 8 or less. [facility] ondansetron (Zofran) injection 4 mg ondansetron (Zofran) injection 4 mg 12-13 13:21: 26 12-13 13:15 :00 No 4mg 4 mg, Intravenou s, Once as needed, nausea, vomiting, Starting on Mon12/13/24 at 1321, For 1 dose, Recovery (only), May repeat once (maximum dose = 8mg). Do not repeat if patient has received Ondansetro n intraopera tively. [facility] acetaminoph en (Tylenol) tablet 1,000 mg acetaminoph en (Tylenol) tablet 1,000 mg 12-13 06:00: 00 12-13 06:05 :00 No 1000mg 1,000 mg, Oral, Once, On Mon12/13/24 at 0600, For 1 dose, Preprocedu re, DO NOT GIVE IF PATIENT HAS RECEIVED ACETAMINOP HEN IN THE PAST SIX HOURS. Maybe administer ed with midazolam. Max acetaminop hen from all sources = 4,000 mg in 24 hours. Anesthesia Pre-op [facility] norgestimat e-ethinyl estradiol (Sprintec 28) 0.25-35 MG-MCG tablet 12-12 08:53: 41 Yes 1 (one) time each day at the same time. [facility] tamsulosin (Flomax) 0.4 MG 24 hr capsule 12-12 08:53: 41 Yes 1{capsu le} 1 capsule 1 (one) time each day at the same time. [facility] ascorbic acid (Vitamin C) 500 MG tablet 12-12 08:53: 41 Yes 500mg QD Take 500 mg by mouth 1 (one) time each day. [facility] ketorolac (Toradol) 10 MG tablet 12-12 08:53: 41 Yes Q6H every 6 (six) hours. [facility] levETIRAcet am (Keppra) 500 MG tablet 12-12 08:53: 41 Yes 500mg Q.5D Take 500 mg by mouth 2 (two) times a day, in the morning and at bedtime. [facility] Multiple Vitamin (multivitam in) tablet 12-12 08:53: 41 Yes 1{tbl} QD Take 1 tablet by mouth 1 (one) time each day. [facility] norethindro ne-ethinyl estradiol (June06/03) 1-20 MG-MCG tablet 12-12 08:53: 41 Yes 1{tbl} QD Take 1 tablet by mouth 1 (one) time each day. [facility] heparin injection 5,000 Units heparin injection 5,000 Units 12-10 14:00: 00 Yes 5000U Q8H 5,000 Units, Subcutaneo us, Every 8 hours, First dose on Mon12/10/24 at 1400 [facility] levETIRAcet am (Keppra) 500 MG tablet levETIRAcet am (Keppra) 500 MG tablet 12-08 00:00: 00 12-16 00:00 :00 No 500mg Q.5D Take 1 tablet by mouth in the morning and 1 tablet in the evening. Do all this for 7 days. [facility] levETIRAcet am (Keppra) tablet 500 mg levETIRAcet am (Keppra) tablet 500 mg 12-07 21:00: 00 12-13 08:59 :00 No 500mg Q.5D 500 mg, Oral, Every 12 hours scheduled, First dose on 12/07/24 at 2100, For 11 doses [facility] vancomycin (Vancocin) 1,000 mg in sodium chloride 0.9 % 250 mL IVPB (vial-mate) vancomycin (Vancocin) 1,000 mg in sodium chloride 0.9 % 250 mL IVPB (vial-mate) 12-07 13:00: 00 Yes 1000mg Q8H 1,000 mg, Intravenou s, at 125 mL/hr, Administer over 120 Minutes, Every 8 hours, First dose on 12/07/24 at 1300, Suspected Indication (Select all that apply): Open Fracture/W ound Prophylaxi s [facility] potassium chloride CR (Klor-Con M20) ER tablet 20 mEq potassium chloride CR (Klor-Con M20) ER tablet 20 mEq 12-07 07:00: 00 12-07 09:10 :00 No 20meq 20 mEq, Oral, Once, On 12/07/24 at 0700, For 1 dose, For patients able to take medication s orally or via feeding tube >/= 14 [place], may dissolve each 20 mEq tablet in 4 oz of water. Allow about 2 minutes for the tablets to disintegra te. Stir before giving to prepare slurry and administer . Please exclude patient's with feeding tube less than 14 [place] (Dobhoff, J-tube, etc) and pediatric and patients Do not crush or chew. [facility] levoFLOXaci n (Levaquin) 750 MG tablet 12-07 00:00: 00 Yes 750mg QD Take 750 mg by mouth in the morning. FOR 7 DAYS. [facility] sulfamethox azole-trime thoprim (Bactrim DS) 800-160 MG per tablet sulfamethox azole-trime thoprim (Bactrim DS) 800-160 MG per tablet 12-07 00:00: 00 12-16 00:00 :00 No 2{tbl} Q.5D Take 2 tablets by mouth in the morning and 2 tablets in the evening. Do all this for 7 days. [facility] vancomycin in NS (Vancocin) IVPB 1,250 mg vancomycin in NS (Vancocin) IVPB 1,250 mg 12-06 16:00: 00 12-07 11:23 :51 No 1250mg Q12H 1,250 mg, Intravenou s, at 83.3 mL/hr, Administer over 3 Hours, Every 12 hours, First dose (after last reorder) on Mon12/06/24 at 1600, For 7 days, Infuse slowly over 3 hours premix bag, Suspected Indication (Select all that apply): Open Fracture/W ound Prophylaxi s [facility] Vancomycin Dosing per Pharmacy Vancomycin Dosing per Pharmacy 12-06 11:46: 51 Yes 1{each} [Order 1 Start] Name: Pharmacy to dose vancomycin Signed Summary: Routine, Once, On Mon12/06/24 at 1147, For 1 occurrence , Suspected Indication (Select all that apply): Open Fracture/W ound Prophylaxi s, Current Renal Status: Stable renal function not on renal placement therapy, Anticipate d Duration (in Days): 7 [Order 1 End] [Order 2 Start] Name: Vancomycin Dosing per Pharmacy Signed Summary: 1 each, Does not apply, As needed, other, Dose per pharmacy., Starting on Mon12/06/24 at 1146, This order is a placeholde r as a reminder that vancomycin is being dosed per pharmacy. Vancomycin doses will be entered as a separate order. [Order 2 End] [facility] polyethylen e glycol (PEG) 3350 (Miralax) packet 17 g polyethylen e glycol (PEG) 3350 (Miralax) packet 17 g 12-06 09:00: 00 Yes 17g Q.5D 17 g, Oral, Every 12 hours scheduled, First dose on Mon12/06/24 at 0900, Dissolve 17 g in 120 to 240 mL (4 to 8 ounces) of beverage. [facility] citalopram (CeleXA) tablet 10 mg citalopram (CeleXA) tablet 10 mg 12-06 09:00: 00 Yes 10mg QD 10 mg, Oral, Daily, First dose on Mon12/06/24 at 0900 [facility] sennosides (Senokot) tablet 8.6 mg sennosides (Senokot) tablet 8.6 mg 12-06 09:00: 00 Yes 1{tbl} Q.5D 8.6 mg (1 tablet), Oral, 2 times daily, First dose on Mon12/06/24 at 0900 [facility] levETIRAcet am (Keppra) injection 500 mg levETIRAcet am (Keppra) injection 500 mg 12-06 09:00: 00 12-07 11:52 :43 No 500mg Q.5D 500 mg, Intravenou s, Administer over 3 Minutes, Every 12 hours scheduled, First dose on Mon12/06/24 at 0900, For 7 days, Administer over 3 minutes IV push for doses up to 1500 mg. [facility] famotidine (PF) (Pepcid) injection 20 mg famotidine (PF) (Pepcid) injection 20 mg 12-06 08:00: 00 12-06 08:21 :00 No 20mg 20 mg, Intravenou s, Administer over 2 Minutes, Once, On Mon12/06/24 at 0800, For 1 dose [facility] diphenhydrA MINE (BENADryl) injection 25 mg diphenhydrA MINE (BENADryl) injection 25 mg 12-06 07:00: 00 12-06 10:45 :11 No 25mg Q6H 25 mg, Intravenou s, Every 6 hours, First dose on Mon12/06/24 at 0700, For 1 day [facility] diphenhydrA MINE (BENADryl) 50 MG/ML injection - Pyxis Override Pull diphenhydrA MINE (BENADryl) 50 MG/ML injection - Pyxis Override Pull 12-06 06:47: 00 12-06 06:49 :00 No Starting on Mon12/06/24 at 0647, For 1 dose, Created by cabinet override [facility] Epic sodium chloride 0.9 % infusion sodium chloride 0.9 % infusion 12-06 04:15: 00 12-06 12:51 :28 No 50mL/h 50 mL/hr, Intravenou s, Continuous , Starting on Mon12/06/24 at 0415 Yeimysuha darron [facility] Epic vancomycin (Vancocin) IVPB 2,000 mg vancomycin (Vancocin) IVPB 2,000 mg 12-06 03:10: 00 12-06 05:27 :00 No 2000mg 2,000 mg, Intravenou s, at 125 mL/hr, Administer over 120 Minutes, Once, On Mon12/06/24 at 0310, For 1 dose, premix bag, Suspected Indication (Select all that apply): Open Fracture/W ound Prophylaxi s [facility] Epic sodium chloride (NS) 0.9 % flush 10 mL sodium chloride (NS) 0.9 % flush 10 mL 12-06 03:05: 00 12-08 06:53 :59 No 10mL Q12H 10 mL, Intravenou s, Every 12 hours, First dose on Mon12/06/24 at 0305, Administer at least once every 12 hours [facility] Epic acetaminoph en (Tylenol) tablet 1,000 mg acetaminoph en (Tylenol) tablet 1,000 mg 12-06 03:00: 15 Yes 1000mg Q6H 1,000 mg, Oral, Every 6 hours PRN, mild pain (1-3), Starting on Mon12/06/24 at 0300 [facility] Epic cefTRIAXone (Rocephin) 2 g in sodium chloride 0.9 % 100 mL IVPB-MB+ cefTRIAXone (Rocephin) 2 g in sodium chloride 0.9 % 100 mL IVPB-MB+ 12-06 03:00: 00 12-14 01:24 :00 No 2g 2 g, Intravenou s, at 200 mL/hr, Administer over 30 Minutes, Every 24 hours, First dose on Mon12/06/24 at 0300, For 7 days, Mini-Bag Plus bag. Break seal and mix before use, as follows: For liquid drug vials, skip to step 2. 1. Hold bag with vial down. Squeeze solution into vial until half-full. Shake to suspend drug in solution. 2. Hold bag with vial upside down. Squeeze bag to force air into vial, then release to drain suspended drug from vial into bag. 3. Repeat above until vial is empty of drug and solution is thoroughly mixed. Ensure drug is completely dissolved. Do not remove drug vial. 4. Remove port protector, attach admin set per its instructio ns, then hang container from IV pole and prime set per directions . Do not use in series connection s. 5. Ensure the vial is empty of drug and in solution, then administer medication as ordered. Use within specified BUD., Suspected Indication (Select all that apply): Open Fracture/W ound Prophylaxi s [facility] Epic bisacodyl (Dulcolax) suppository 10 mg bisacodyl (Dulcolax) suppository 10 mg 12-06 02:58: 47 Yes 10mg Q24H 10 mg, Rectal, Daily PRN, constipati on, Starting on Mon12/06/24 at 0258 [facility] Epic ondansetron (Zofran) injection 4 mg ondansetron (Zofran) injection 4 mg 12-06 02:58: 47 Yes 4mg Q6H 4 mg, Intravenou s, Every 6 hours PRN, nausea, vomiting, Starting on Mon12/06/24 at 0258 [facility] Epic cefTRIAXone (Rocephin) 1 g in sodium chloride 0.9 % 100 mL IVPB-MB+ cefTRIAXone (Rocephin) 1 g in sodium chloride 0.9 % 100 mL IVPB-MB+ 12-06 00:45: 00 12-06 01:55 :00 No 1g 1 g, Intravenou s, at 200 mL/hr, Administer over 30 Minutes, Once, On Mon12/06/24 at 0045, For 1 dose, Mini-Bag Plus bag. Break seal and mix before use, as follows: For liquid drug vials, skip to step 2. 1. Hold bag with vial down. Squeeze solution into vial until half-full. Shake to suspend drug in solution. 2. Hold bag with vial upside down. Squeeze bag to force air into vial, then release to drain suspended drug from vial into bag. 3. Repeat above until vial is empty of drug and solution is thoroughly mixed. Ensure drug is completely dissolved. Do not remove drug vial. 4. Remove port protector, attach admin set per its instructio ns, then hang container from IV pole and prime set per directions . Do not use in series connection s. 5. Ensure the vial is empty of drug and in solution, then administer medication as ordered. Use within specified BUD., Suspected Indication (Select all that apply): CUSHION GUM APPLICATOR Infection/ Epidural Abscess [facility]ber nafcillin 2 g in sodium chloride 0.9 % 100 mL IVPB-MB+ nafcillin 2 g in sodium chloride 0.9 % 100 mL IVPB-MB+ 12-06 00:45: 00 12-06 01:39 :00 No 2g 2 g, Intravenou s, at 200 mL/hr, Administer over 0.5 Hours, Once, On Mon12/06/24 at 0045, For 1 dose, Mini-Bag Plus bag. Break seal and mix before use, as follows: For liquid drug vials, skip to step 2. 1. Hold bag with vial down. Squeeze solution into vial until half-full. Shake to suspend drug in solution. 2. Hold bag with vial upside down. Squeeze bag to force air into vial, then release to drain suspended drug from vial into bag. 3. Repeat above until vial is empty of drug and solution is thoroughly mixed. Ensure drug is completely dissolved. Do not remove drug vial. 4. Remove port protector, attach admin set per its instructio ns, then hang container from IV pole and prime set per directions . Do not use in series connection s. 5. Ensure the vial is empty of drug and in solution, then administer medication as ordered. Use within specified BUD., Suspected Indication (Select all that apply): CUSHION GUM APPLICATOR Infection/ Epidural Abscess [facility]ber citalopram (CeleXA) 10 MG tablet 08-29 08:56: 41 Yes 1 (one) time each day at the same time. [facility] norethindro ne-ethinyl estradiol-i corey (Lo Loestrin Fe) 1 MG-10 MCG / 10 MCG tablet 08-29 08:56: 41 Yes TAKE 1 TABLET BY MOUTH EVERY DAY Oral for 84 Days [facility] amphetamine -dextroamph etamine XR (Adderall XR) 10 MG 24 hr capsule 08-01 00:00: 00 Yes [facility] citalopram (CeleXA) 5 MG split tablet 08-01 00:00: 00 Yes [facility] Multiple Vitamin (multivitam in) tablet Multiple Vitamin (multivitam in) tablet 07-21 11:37: 23 Yes 1{tbl} QD Take 1 tablet by mouth 1 time each day. [facility] Gerber acetaminoph en-codeine (Tylenol w/ Codeine #3) 300-30 MG tablet 07-21 00:00: 00 Yes TAKE 2 TABLETS BY MOUTH EVERY 6 HOURS IF NEEDED FOR MODERATE TO SEVERE PAIN (4-10) FOR UP TO 7 DAYS. [facility] levETIRAcet am (Keppra) 500 MG tablet levETIRAcet am (Keppra) 500 MG tablet 07-21 00:00: 00 12-08 00:00 :00 No 500mg Q.5D Take 1 tablet by mouth in the morning and 1 tablet in the evening. Do all this for 15 days. [facility] Gerber docusate sodium (Colace) 100 MG capsule 07-21 00:00: 00 07-29 04:59 :00 No 100mg Q.5D Take 100 mg by mouth in the morning and 100 mg in the evening. [facility] docusate sodium (Colace) capsule 100 mg docusate sodium (Colace) capsule 100 mg 07-19 21:00: 00 Yes 100mg Q12H 100 mg, Oral, Every 12 hours, First dose on Mon07/19/24 at 2100, [facility] levETIRAcet am (Keppra) injection 500 mg levETIRAcet am (Keppra) injection 500 mg 07-19 21:00: 00 Yes 500mg Q12H 500 mg, Intravenou s, Every 12 hours, First dose on Mon07/19/24 at 2100, [facility], Administer over 3 minutes IV push for doses less than 1500 mg. [facility]ber ceFAZolin Sodium (Ancef) 2 g in sterile water injection ceFAZolin Sodium (Ancef) 2 g in sterile water injection 07-19 19:00: 07-20 11:57 :00 No 2g Q8H 2 g, Intravenou s, at 200 mL/hr, Administer over 6 Minutes, Every 8 hours, First dose on Mon07/19/24 at 1900, For 3 doses, [facility], Suspected Indication (Select all that apply): Surgical Prophylaxi s [facility] Epic acetaminoph en (Tylenol) tablet 500 mg acetaminoph en (Tylenol) tablet 500 mg 07-19 18:00: 00 07-24 17:59 :00 No 500mg Q6H 500 mg, Oral, Every 6 hours, First dose on Mon07/19/24 at 1800, For 5 days, [facility] Epic ascorbic acid (vitamin C) 500 MG tablet ascorbic acid (vitamin C) 500 MG tablet 07-19 14:30: 00 Yes 500mg QD Take 500 mg by mouth 1 time each day. [facility] Epic citalopram (CeleXA) tablet 10 mg citalopram (CeleXA) tablet 10 mg 07-19 14:30: 00 Yes 10mg QD 10 mg, Oral, Daily, First dose on Mon07/19/24 at 1430, [facility] Epic polyethylen e glycol (PEG) 3350 (Miralax) packet 17 g polyethylen e glycol (PEG) 3350 (Miralax) packet 17 g 07-19 14:30: 00 Yes 17g QD 17 g, Oral, Daily, First dose on Mon07/19/24 at 1430, [facility] On [facility], Dissolve 17 g in 120 to 240 mL (4 to 8 ounces) of beverage. [facility] Epic sennosides (Senokot) tablet 8.6 mg sennosides (Senokot) tablet 8.6 mg 07-19 14:30: 00 Yes 1{tbl} Q.5D 8.6 mg (1 tablet), Oral, Every 12 hours scheduled, First dose on Mon07/19/24 at 1430, [facility] On [facility] Epic acetaminoph en (Tylenol) tablet 1,000 mg acetaminoph en (Tylenol) tablet 1,000 mg 07-19 11:45: 00 07-19 12:18 :00 No 1000mg 1,000 mg, Oral, Once, On Mon07/19/24 at 1145, For 1 dose, Recovery (only), If not given within the last 6 hours. Max acetaminop hen from all sources = 4,000 mg in 24 hours. [facility] Gerber HYDROmorpho ne PF (Dilaudid) injection 0.5 mg HYDROmorpho ne PF (Dilaudid) injection 0.5 mg 07-19 11:43: 57 07-19 12:28 :00 No .5mg 0.5 mg, Intravenou s, Every 10 min PRN, severe pain (7-10), Starting on Mon07/19/24 at 1143, For 4 doses, Recovery (only), Hold for respirator y rate or 8 or less. [facility] Gerber oxyCODONE (Roxicodone ) immediate release tablet 5 mg oxyCODONE (Roxicodone ) immediate release tablet 5 mg 07-19 11:43: 57 07-19 12:18 :00 No 5mg 5 mg, Oral, Once as needed, moderate pain (4-6), Starting on Mon07/19/24 at 1143, For 1 dose, Recovery (only) [facility]ber sodium chloride 0.9 % infusion sodium chloride 0.9 % infusion 07-19 07:45: 00 Yes 50mL/h 50 mL/hr, Intravenou s, Continuous , Starting on Mon07/19/24 at 0745, [facility] metoclopram sabrina (Reglan) injection 10 mg metoclopram sabrina (Reglan) injection 10 mg 2024-0 07-19 07:43: 33 Yes 10mg Q6H 10 mg, Intravenou s, Every 6 hours PRN, nausea, vomiting, Starting on Mon07/19/24 at 0743, [facility] ondansetron (Zofran) injection 4 mg ondansetron (Zofran) injection 4 mg 2024-0 07-19 07:43: 32 Yes 4mg Q8H 4 mg, Intravenou s, Every 8 hours PRN, nausea, vomiting, Starting on Mon07/19/24 at 0743, Recovery [facility] On [facility], (Slow IV push over 2-5 minutes). [facility]ber HYDROcodone -acetaminop hen ([place]) 5-325 MG per tablet 1 tablet HYDROcodone -acetaminop hen ([place]) 5-325 MG per tablet 1 tablet 07-19 07:42: 10 07-22 08:41 :10 No 1{tbl} Q6H 1 tablet, Oral, Every 6 hours PRN, mild pain (1-3), Starting on Mon07/19/24 at 0742, For 3 days, [facility] HYDROcodone -acetaminop hen ([place]) 10-325 MG per tablet 1 tablet HYDROcodone -acetaminop hen ([place]) 10-325 MG per tablet 1 tablet 07-19 07:42: 09 Yes 1{tbl} Q6H 1 tablet, Oral, Every 6 hours PRN, moderate pain (4-6), Starting on Mon07/19/24 at 0742, [facility] On [facility] aprepitant (Emend) 40 MG capsule - Pyxis Override Pull aprepitant (Emend) 40 MG capsule - Pyxis Override Pull 07-19 06:06: 51 07-19 06:10 :00 No Starting on Mon07/19/24 at 0606, For 1 dose, Created by cabinet override [facility] Epic electrolyte solution pH 7.4 (Plasma-lyt e/Normosol/ Isolyte) infusion electrolyte solution pH 7.4 (Plasma-lyt e/Normosol/ Isolyte) infusion 07-19 05:45: 00 Yes 75mL/h 75 mL/hr, Intravenou s, Continuous , Starting on Mon07/19/24 at 0545, Preprocedu re, Anesthesia Pre-op [facility] Dvais Epic aprepitant (Emend) capsule 40 mg aprepitant (Emend) capsule 40 mg 07-19 05:45: 00 07-19 06:10 :00 No 40mg 40 mg, Oral, Once, On Mon07/19/24 at 0545, For 1 dose, Preprocedu re [facility]ber Adderall 10 MG tablet 06-21 00:00: 00 Yes Q12H every 12 (twelve) hours. [facility] norethindro ne-ethinyl estradiol (Microgesti n 06/03) 1-20 MG-MCG tablet 1- 00:00: 00 Yes TAKE 1 TABLET BY MOUTH AT THE SAME TIME EVERY DAY FOR 21 DAYS, THEN TAKE NO PILL FOR 7 DAYS. [facility] citalopram (CeleXA) 10 MG tablet citalopram (CeleXA) 10 MG tablet - 00:00: 00 12-08 00:00 :00 No 10mg QD Take 10 mg by mouth 1 time each day. [facility] amphetamine -dextroamph etamine (Adderall) 10 MG tablet amphetamine -dextroamph etamine (Adderall) 10 MG tablet 05-21 17:02: 35 05-21 00:00 :00 No 10mg Q.5D Take 10 mg by mouth in the morning and 10 mg in the evening. [facility] norethindro ne-ethinyl estradiol (06/03) 1-20 MG-MCG tablet norethindro ne-ethinyl estradiol (06/03) 1-20 MG-MCG tablet 05-21 17:02: 32 Yes 1{tbl} QD Take 1 tablet by mouth 1 time each day. [facility] levETIRAcet am (Keppra) 500 MG tablet levETIRAcet am (Keppra) 500 MG tablet - 00:00: 00 07-21 00:00 :00 No 500mg Q.5D Take 1 tablet by mouth in the morning and 1 tablet before bedtime. Do all this for 3 days. [facility]ber acetaminoph en (Tylenol) 325 MG tablet acetaminoph en (Tylenol) 325 MG tablet 1-07 00:00: 00 05-31 23:59 :00 No 650mg Q6H Take 2 tablets by mouth every 6 hours if needed for mild pain (1-3) for up to 10 days. [facility] levETIRAcet am (Keppra) tablet 500 mg levETIRAcet am (Keppra) tablet 500 mg 05-20 21:00: 00 Yes 500mg Q.5D 500 mg, Oral, Every 12 hours scheduled, First dose on Mon05/20/24 at 2100 [facility] docusate sodium (Colace) capsule 100 mg docusate sodium (Colace) capsule 100 mg 05-20 21:00: 00 Yes 100mg Q.5D 100 mg, Oral, Every 12 hours scheduled, First dose on Mon05/20/24 at 2100 [facility] citalopram (CeleXA) tablet 10 mg citalopram (CeleXA) tablet 10 mg 05-20 17:45: 00 Yes 10mg QD 10 mg, Oral, Daily, First dose on Mon05/20/24 at 1745 [facility] thiamine (Vitamin B-1) tablet 100 mg thiamine (Vitamin B-1) tablet 100 mg 05-20 09:15: 00 Yes 100mg QD 100 mg, Oral, Daily, First dose on Mon05/20/24 at 0915 [facility]ber therapeutic multivitami n-iron-mine rals (Theragran) tablet 1 tablet therapeutic multivitami n-iron-mine rals (Theragran) tablet 1 tablet 05-20 09:15: 00 Yes 1{tbl} QD 1 tablet, Oral, Daily, First dose on Mon05/20/24 at 0915 [facility]ber potassium phosphate 30 mmol/260 mL NS infusion (premix) 30 mmol potassium phosphate 30 mmol/260 mL NS infusion (premix) 30 mmol 05-20 04:30: 00 05-20 09:11 :00 No 30mmol 30 mmol, Intravenou s, Administer over 4 Hours, Once, On Mon05/20/24 at 0430, For 1 dose, Do not infuse phosphorou s concurrent ly in the same line as TPN or IVF that contains calcium. For double lumen central lines, phosphorou s may be infused in a separate lumen from TPN. [facility] l [facility] Epic sodium chloride 0.9 % bolus 1,000 mL sodium chloride 0.9 % bolus 1,000 mL 05-19 19:30: 00 05-19 20:42 :00 No 1000mL 1,000 mL, Intravenou s, at 1,000 mL/hr, Administer over 1 Hours, Once, On 05/19/24 at 1930, For 1 dose Memsuha Youngerann Epic magnesium sulfate IVPB 2 g magnesium sulfate IVPB 2 g 05-19 19:30: 00 05-19 21:35 :00 No 2g 2 g, Intravenou s, at 25 mL/hr, Administer over 2 Hours, Once, On 05/19/24 at 1930, For 1 dose Memsuha Youngerann Epic diphenhydrA MINE (BENADryl) injection 10 mg diphenhydrA MINE (BENADryl) injection 10 mg 05-19 19:30: 00 05-19 19:35 :00 No 10mg 10 mg, Intravenou s, Once, On 05/19/24 at 1930, For 1 dose Memsuha Youngerann Epic heparin injection 5,000 Units heparin injection 5,000 Units 05-19 16:00: 00 Yes 5000U Q8H 5,000 Units, Subcutaneo us, Every 8 hours, First dose (after last modificati on) on 05/19/24 at 1600 Memsuha Youngerann Epic magnesium sulfate IVPB 2 g magnesium sulfate IVPB 2 g 05-18 20:45: 00 05-18 22:50 :00 No 2g 2 g, Intravenou s, at 25 mL/hr, Administer over 2 Hours, Once, On 05/18/24 at 2044, For 1 dose Memoria l Ryan Epic sodium chloride 0.9 % bolus 1,000 mL sodium chloride 0.9 % bolus 1,000 mL 05-18 20:45: 00 05-18 22:50 :00 No 1000mL 1,000 mL, Intravenou s, at 1,000 mL/hr, Administer over 1 Hours, Once, On 05/18/24 at 2044, For 1 dose Mem[facility] l [facility] Epic diphenhydrA MINE (BENADryl) injection 10 mg diphenhydrA MINE (BENADryl) injection 10 mg 05-18 20:45: 00 05-18 20:51 :00 No 10mg 10 mg, Intravenou s, Once, On 05/18/24 at 2045, For 1 dose Memoria darron Gilbert Epic sodium chloride 0.9 % bolus 1,000 mL sodium chloride 0.9 % bolus 1,000 mL 05-18 13:00: 00 05-18 14:00 :00 No 1000mL 1,000 mL, Intravenou s, at 1,000 mL/hr, Administer over 1 Hours, Once, On 05/18/24 at 1300, For 1 dose Memoria darron Ryan Epic sodium chloride 0.9 % bolus 1,000 mL sodium chloride 0.9 % bolus 1,000 mL 05-18 12:30: 00 05-18 12:26 :00 No 1000mL 1,000 mL, Intravenou s, at 1,000 mL/hr, Administer over 1 Hours, Once, On 05/18/24 at 1230, For 1 dose Memoria darron Gilbert Epic methocarbam ol (Robaxin) 1,000 mg in sodium chloride 0.9 % 100 mL IVPB methocarbam ol (Robaxin) 1,000 mg in sodium chloride 0.9 % 100 mL IVPB 05-18 11:00: 00 05-18 12:03 :00 No 1000mg 1,000 mg, Intravenou s, at 110 mL/hr, Administer over 60 Minutes, Once, On 05/18/24 at 1100, For 1 dose Memoria darron Ryan Epic acetaminoph en (Tylenol) tablet 650 mg acetaminoph en (Tylenol) tablet 650 mg 05-18 09:59: 20 Yes 650mg Q6H 650 mg, Oral, Every 6 hours PRN, mild pain (1-3), Starting on 05/18/24 at 0959, Max acetaminop hen = 4000mg/day (4gm/day) Haven rob Gilbert Epic norepinephr ine (Levophed) 8 mg in sodium chloride 0.9 % 250 mL (0.032 mg/mL) infusion norepinephr ine (Levophed) 8 mg in sodium chloride 0.9 % 250 mL (0.032 mg/mL) infusion 05-18 05:45: 00 05-18 18:55 :11 No .01ug/k g/min 0.01-1 mcg/kg/min ?72.2 kg (1.3538-13 5.375 mL/hr, rounded to 1.35-135.3 8 mL/hr), Intravenou s, Continuous , Starting on 05/18/24 at 0545, Infusion Type: Titrate, Initial Dose (mcg/kg/mi n): 0.1, Titrate by (mcg/kg/mi n): 0.05, Every (minutes): 2-5, Target Blood Pressure (mmHg): MAP 65 or above, Max Dose (mcg/kg/mi n): 1 [facility]ber norepinephr ine (Levophed) 1 MG/ML injection - Pyxis Override Pull norepinephr ine (Levophed) 1 MG/ML injection - Pyxis Override Pull 05-18 04:52: 28 05-18 05:00 :00 No Starting on 05/18/24 at 0452, For 1 dose, Created by cabinet override [facility] Epic chlorhexidi ne (Peridex) 0.12 % solution 15 mL chlorhexidi ne (Peridex) 0.12 % solution 15 mL 05-18 04:04: 47 Yes 15mL 15 mL, Mouth/Thro at, As needed, wound care, For VAP prevention and oral hygiene., Starting on 05/18/24 at 0404, swish and expectorat e [facility] Gerber labetalol injection 10 mg labetalol injection 10 mg 05-18 04:01: 10 Yes 10mg Q4H 10 mg, Intravenou s, Every 4 hours PRN, high blood pressure, Follow vital signs parameters order, Starting on 05/18/24 at 0401, 1st. Agent [facility] Epic hydrALAZINE injection 10 mg hydrALAZINE injection 10 mg 05-18 04:01: 10 Yes 10mg Q4H 10 mg, Intravenou s, Every 4 hours PRN, high blood pressure, Follow vital signs parameters order, Starting on 05/18/24 at 0401 [facility] Gerber dexmedeTOMI Dine in NS (Precedex) 400 mcg in 100 mL (4 mcg/mL) infusion dexmedeTOMI Dine in NS (Precedex) 400 mcg in 100 mL (4 mcg/mL) infusion 05-18 01:00: 00 05-18 08:51 :30 No .2ug/kg /h 0.2-1.5 mcg/kg/hr ?72.6 kg (3.63-27.2 25 mL/hr, rounded to 3.63-27.23 mL/hr), Intravenou s, Continuous , Starting on 05/18/24 at 0100, Infusion Type: Titrate, Initial Dose (mcg/kg/hr ): 0.2, Titrate by (mcg/kg/hr ): 0.1, Every (minutes): 30, Goal: Refer to Target Arousal RASS Score on Storyboard , Max Dose (mcg/kg/hr ): 1.5 [facility] Gerber iohexol (OMNIPaque) 350 MG/ML injection 60 mL iohexol (OMNIPaque) 350 MG/ML injection 60 mL 05-17 22:41: 01 05-17 22:41 :00 No 60mL 60 mL, Intravenou s, Once in imaging, Starting on Mon05/17/24 at 2241, For 1 dose [facility] Gerber ceFAZolin Sodium (Ancef) 2 g in sterile water injection ceFAZolin Sodium (Ancef) 2 g in sterile water injection 05-17 22:15: 00 05-18 17:00 :00 No 2g Q8H 2 g, Intravenou s, at 200 mL/hr, Administer over 6 Minutes, Every 8 hours, First dose on Mon05/17/24 at 2215, For 1 day, Recovery [facility] On Unit, Suspected Indication (Select all that apply): Surgical Prophylaxi s [facility]ber levETIRAcet am (Keppra) injection 500 mg levETIRAcet am (Keppra) injection 500 mg 05-17 21:00: 00 05-20 09:08 :56 No 500mg Q.5D 500 mg, Intravenou s, Every 12 hours scheduled, First dose on Mon05/17/24 at 2100 [facility] Gerber sennosides (Senokot) tablet 8.6 mg sennosides (Senokot) tablet 8.6 mg 05-17 18:40: 00 Yes 1{tbl} Q.5D 8.6 mg (1 tablet), Oral, 2 times daily, First dose on Mon05/17/24 at 1840 [facility] Gerber sodium chloride (NS) 0.9 % flush 10 mL sodium chloride (NS) 0.9 % flush 10 mL 05-17 18:40: 00 Yes 10mL Q12H 10 mL, Intravenou s, Every 12 hours, First dose on Mon05/17/24 at 1840, Administer at least once every 12 hours [facility] Gerber docusate sodium (Colace) capsule 50 mg docusate sodium (Colace) capsule 50 mg 05-17 18:40: 00 05-20 09:08 :56 No 50mg Q.5D 50 mg, Oral, 2 times daily, First dose on Mon05/17/24 at 1840 [facility]ber sodium chloride 0.9 % infusion sodium chloride 0.9 % infusion 05-17 18:40: 00 05-19 10:31 :52 No 100mL/h 100 mL/hr, Intravenou s, Continuous , Starting on Mon05/17/24 at 1840 [facility]ber diphenhydrA MINE (BENADryl) liquid 12.5 mg diphenhydrA MINE (BENADryl) liquid 12.5 mg 05-17 18:36: 58 Yes 12.5mg Q6H 12.5 mg, Oral, Every 6 hours PRN, itching, Starting on Mon05/17/24 at 1836 [facility] Gerber naloxone (Narcan) injection 0.04 mg naloxone (Narcan) injection 0.04 mg 05-17 18:36: 58 Yes .04mg 0.04 mg, Intravenou s, As needed, opioid reversal, every 2 mins PRN for Narcotic Reversal, Starting on Mon05/17/24 at 1836, For 8 doses, Give up to 8 doses of 0.04 mg as needed to reverse over sedation. Keep available for immediate use. Call ordering physician STAT. (Dilute 0.4 mg/mL in 9 mL of saline) [facility]ber bisacodyl (Dulcolax) suppository 10 mg bisacodyl (Dulcolax) suppository 10 mg 05-17 18:36: 57 Yes 10mg Q24H 10 mg, Rectal, Daily PRN, constipati on, Starting on Mon05/17/24 at 1836 [facility] Gerber ondansetron (Zofran) injection 4 mg ondansetron (Zofran) injection 4 mg 05-17 18:36: 57 Yes 4mg Q6H 4 mg, Intravenou s, Every 6 hours PRN, nausea, vomiting, Starting on Mon05/17/24 at 1836 [facility] Gerber glucagon recombinant (Glucagen) injection 1 mg glucagon recombinant (Glucagen) injection 1 mg 05-17 18:36: 57 Yes 1mg 1 mg, Intramuscu lar, As needed, For BG < 70 mg/dL if no IV access and patient is either Unconsciou s, unable to swallow or npo, Starting on Mon05/17/24 at 1836, For BG < 70 mg/dL if no IV access and patient is either Unconsciou s, unable to swallow or npo and notify MD. [facility] Gerber dextrose 50 % solution 25 g dextrose 50 % solution 25 g 05-17 18:36: 57 Yes 25g 25 g, Intravenou s, As needed, other, if Blood Glucose </= 50 mg/dL, Starting on Mon05/17/24 at 1836, If BG </=50 mg/dL, give 50 mL of D50W IV push STAT and notify MD. [facility] dextrose 50 % solution 12.5 g dextrose 50 % solution 12.5 g 05-17 18:36: 57 Yes 12.5g 12.5 g, Intravenou s, As needed, low blood sugar, if Blood Glucose 51- 69 mg/dL, Starting on Mon05/17/24 at 1836, For BG 51-69 mg/dL and patient UNCONSCIOU S OR UNABLE TO SWALLOW OR NPO: Give 25 mL of D50W IV push and notify MD. [facility] Gerber insulin lispro (HumaLOG, Admelog) injection 2-8 Units insulin lispro (HumaLOG, Admelog) injection 2-8 Units 05-17 18:36: 57 Yes 2U [id number] 3D 2-8 Units, Subcutaneo us, 3 times daily PRN, high blood sugar, with meals, Starting on Mon05/17/24 at 1836, For BG < 70, follow hypoglycem ia protocol and notify ordering provider. If patient can eat or drink, give oral carbohydra te as ordered per hypoglycem ia protocol. If patient NPO, give dextrose 50 % IV as ordered per hypoglycem ia protocol. If NPO and no IV access, give glucagon IM as ordered per hypoglycem ia protocol. Check BG every 15 minutes and repeat treatment if continued BG < 80. Therapeuti c interchang e for insulin regular to lispro per hospital approved protocol, Correction Insulin Dosing: (DO NOT CHANGE DEFAULT SELECTION/ VALUES): Starting, BG < 70 instructio ns: Follow Hypoglycem ia Orders, BG 70-149 instructio ns: No Dose Needed, BG 150-199: 2, BG 200-249: 4, BG 250-299: 6, BG >/= 300: 8, BG > 300 instructio ns: Contact Provider [facility] Gerber sodium chloride (NS) 0.9 % flush 10 mL sodium chloride (NS) 0.9 % flush 10 mL 05-17 18:36: 57 Yes 10mL 10 mL, Intravenou s, As needed, line care, Line Flush, Starting on Mon05/17/24 at 1836 [facility] Gerber magnesium sulfate IVPB 2 g magnesium sulfate IVPB 2 g 05-17 18:36: 57 05-21 12:35 :43 No 2g 2 g, Intravenou s, Administer over 4 Hours, As needed, Abnormal Lab Result, FOR ICU USE ONLY, Starting on Mon05/17/24 at 1836, For magnesium 1.6 to 1.8 mg/dL: Replace with Mg Sulfate 2 grams IVPB over 4 hours x 1 dose. For magnesium 1.9 to 2.3 mg/dL(in CV surgery patients only): Replace with Mg Sulfate 2 grams IVPB over 4 hours X 1 dose> For magnesium </= 1.5 mg/dL: Replace with Mg Sulfate 2 grams IVPB over 4 hours X 2 doses. Notify MD if magnesium </= 1.1 mg/dL Recheck Magnesium level 2 hours after Magnesium replacemen t complete. Memoria l Gilbert Epic fentaNYL Citrate (Sublimaze) 1000 MCG/20ML infusion fentaNYL Citrate (Sublimaze) 1000 MCG/20ML infusion 05-17 18:15: 00 05-18 05:43 :46 No 50ug/h 50-200 mcg/hr (1-4 mL/hr), Intravenou s, Continuous , Starting on Mon05/17/24 at 1815, Do not exceed max dose in ordered range; contact prescriber if goal not met or maintained at max dose., Infusion Type: Titrate, Initial Dose (mcg/hr): 50, Titrate by (mcg/hr): 25, Every (minutes): 15, Goal: Refer to Target Arousal RASS Score on Storyboard , Max Dose (mcg/hr): 200 Yeimyoria l Gilbert Epic propofol (Diprivan) 10 mg/mL infusion propofol (Diprivan) 10 mg/mL infusion 05-17 18:15: 00 05-18 03:49 :46 No 5ug/kg/ min 5 mcg/kg/min ?72.6 kg (2.178 mL/hr, rounded to 2.18 mL/hr), Intravenou s, Continuous , Starting on Mon05/17/24 at 1815, Infusion Type: Non-titrat e [facility] propofol (Diprivan) 1000 MG/100ML infusion - Pyxis Override Pull propofol (Diprivan) 1000 MG/100ML infusion - Pyxis Override Pull 05-17 17:59: 15 05-17 18:02 :00 No Starting on Mon05/17/24 at 1759, For 1 dose, Created by cabinet override General Anesthetic - do not give without appropriat e ventilatio n support. Do not administer propofol in same IV catheter as blood or plasma. Discard any unused portion of propofol vials and tubing after 12 hours. [facility] fentaNYL Citrate (Sublimaze) 1000 MCG/20ML infusion - Pyxis Override Pull fentaNYL Citrate (Sublimaze) 1000 MCG/20ML infusion - Pyxis Override Pull - 17:59: 05 05-17 18:02 :00 No Starting on Mon05/17/24 at 1759, For 1 dose, Created by cabinet override [facility] meclizine (Antivert) 25 MG tablet 2023-05 2- 00:00: 00 Yes Q8H every 8 (eight) hours. [facility] LORazepam (Ativan) 0.5 MG tablet 2023-05 1- 00:00: 00 Yes 1 tablet as needed Orally twice daily for 30 days [facility] amphetamine -dextroamph etamine (Adderall) 5 MG tablet -12 00:00: 00 Yes 1{tbl} Q.5D Take 1 tablet by mouth in the morning and 1 tablet in the evening. FOR 30 DAYS. [facility] albuterol (2.5 MG/3ML) 0.083% nebulizer solution 08 00:00: 00 Yes Q8H every 8 (eight) hours. [facility] Sprintec 28 0.25-35 MG-MCG Sprintec 28 0.25-35 MG-MCG No 1{table t} QD Sprintec 28 0.25-35 MG-MCG Immunizations Ordered Immunization Name Filled Immunization Name Date Status Comments Source Influenza, seasonal, injectable, preservative free (Afluria, Fluarix, Flulaval, Fluzone) 2024-07-06 00:00:00 Completed Influenza, seasonal, injectable, preservative free (Afluria, Fluarix, Flulaval, Fluzone) 2024-07-06 00:00:00 Completed Influenza, quadrivalent, injectable, preservative free (flublok) 2022-02-17 00:00:00 Completed HepB-CpG 2022-02-17 00:00:00 Completed HPV 9-Valent 2022-02-17 00:00:00 Completed Influenza, quadrivalent, injectable, preservative free (flublok) 2022-02-17 00:00:00 Completed HepB-CpG 2022-02-17 00:00:00 Completed HPV 9-Valent 2022-02-17 00:00:00 Completed SARS-COV-2 COVID-19 PFIZER VACCINE 2020-09-12 00:00:00 Completed [facility] SARS-COV-2 COVID-19 PFIZER VACCINE 2020-08-22 00:00:00 Completed [facility] Vital Signs Vital Name Observation Time Observation Value Comments S jaclyn Body weight 2024-12-26 15:53:00 [facility] BMI 2024-12-26 15:53:00 31.37 [facility]m2 [facility] Systolic blood pressure 2024-12-26 15:53:00 106 mm[Hg] [facility] Diastolic blood pressure 2024-12-26 15:53:00 70 mm[Hg] [facility] Heart rate 2024-12-26 15:53:00 90 /min [facility] Body height 2024-12-26 15:53:00 154.9 [facility] Heart rate 2024-12-16 13:02:51 86 /min [facility] Res[facility] 2024-12-16 13:02:51 18 /min [facility] Oxygen saturation in Arterial blood by Pulse oximetry 2024-12-16 13:02:51 99 /min [facility] Body temperature 2024-12-16 13:02:40 36.78 Maritza [facility] Systolic blood pressure 2024-12-16 13:02:29 107 mm[Hg] [facility] Diastolic blood pressure 2024-12-16 13:02:29 66 mm[Hg] [facility] Body height 2024-12-13 06:09:00 154.9 cm [facility] Body weight 2024-12-13 06:09:00 73.8 kg [facility] BMI 2024-12-13 06:09:00 30.74 kg/m2 [facility] Heart rate 2024-12-16 13:02:51 86 /min [facility] Respiratory rate 2024-12-16 13:02:51 18 /min [facility] Oxygen saturation in Arterial blood by Pulse oximetry 2024-12-16 13:02:51 99 /min [facility] Body temperature 2024-12-16 13:02:40 36.78 Maritza [facility] Systolic blood pressure 2024-12-16 13:02:29 107 mm[Hg] [facility] Diastolic blood pressure 2024-12-16 13:02:29 66 mm[Hg] [facility] Body height 2024-12-13 06:09:00 154.9 cm Chintan rial [facility] Body weight 2024-12-13 06:09:00 73.8 kg Chintan rial [facility] BMI 2024-12-13 06:09:00 30.74 kg/m2 Chintan rial [facility] Systolic blood pressure 2024-12-12 15:23:00 112 mm[Hg] [facility] Diastolic blood pressure 2024-12-12 15:23:00 78 mm[Hg] [facility] Heart rate 2024-12-12 15:23:00 88 /min [facility] Body height 2024-12-12 15:23:00 154.9 [facility] Body weight 2024-12-12 15:23:00 73.483 [facility] BMI 2024-12-12 15:23:00 30.61 kg[facility]m2 [facility] Heart rate 2024-12-08 07:35:58 63 /min [facility] ial [facility] Respiratory rate 2024-12-08 07:35:58 18 /min [facility] Oxygen saturation in Arterial blood by Pulse oximetry 2024-12-08 07:35:58 100 /min [facility] Systolic blood pressure 2024-12-08 07:35:49 134 mm[Hg] [facility] Diastolic blood pressure 2024-12-08 07:35:49 83 mm[Hg] [facility] Body temperature 2024-12-08 07:35:48 36.78 Maritza [facility] Body height 2024-12-06 05:00:00 154.9 cm Chintan rial [facility] Body weight 2024-12-06 05:00:00 75.3 kg Chintan rial [facility] BMI 2024-12-06 05:00:00 31.37 kg/m2 Chintan rial [facility] Heart rate 2024-12-08 07:35:58 63 /min Sascha [facility] Respiratory rate 2024-12-08 07:35:58 18 /min [facility] Oxygen saturation in Arterial blood by Pulse oximetry 2024-12-08 07:35:58 100 /min [facility] Her spears [facility] Systolic blood pressure 2024-12-08 07:35:49 134 mm[Hg] [facility] Diastolic blood pressure 2024-12-08 07:35:49 83 mm[Hg] [facility] Her spears [facility] Body temperature 2024-12-08 07:35:48 36.78 Maritza [facility] Body height 2024-12-06 05:00:00 154.9 cm [facility] weight 2024-12-06 05:00:00 75.3 kg Chintan [facility] BMI 2024-12-06 05:00:00 31.37 kg/m2 [facility] felicita [facility] Systolic blood pressure 2024-12-06 04:15:00 117 mm[Hg] [facility] Diastolic blood pressure 2024-12-06 04:15:00 84 mm[Hg] [facility] Heart rate 2024-12-06 04:15:00 97 /min [facility] 2024-12-06 04:15:00 36.67 Maritza [facility] Respiratory rate 2024-12-06 04:15:00 20 /min [facility] Oxygen saturation in Arterial blood by Pulse oximetry 2024-12-06 04:15:00 96 /min [facility] Body height 2024-12-06 01:51:00 154.9 cm [facility] Body weight 2024-12-06 01:51:00 74.844 kg [facility] BMI 2024-12-06 01:51:00 31.18 kg/m2 [facility] Systolic blood pressure 2024-08-29 13:53:00 123 mm[Hg] [facility] Diastolic blood pressure 2024-08-29 13:53:00 73 mm[Hg] [facility] Heart rate 2024-08-29 13:53:00 106 /min [facility] Body temperature 2024-08-29 13:53:00 36.11 Maritza [facility] Body height 2024-08-29 13:53:00 154.9 cm [facility] Body weight 2024-08-29 13:53:00 72.122 [facility] BMI 2024-08-29 13:53:00 30.04 kg/m2 [facility] Systolic blood pressure 2024-08-01 16:55:00 131 mm[Hg] [facility] Diastolic blood pressure 2024-08-01 16:55:00 75 mm[Hg] [facility] Heart rate 2024-08-01 16:55:00 111 /min [facility] Body temperature 2024-08-01 16:55:00 36.28 Maritza [facility] Body height 2024-08-01 16:55:00 152.6 cm [facility] Body weight 2024-08-01 16:55:00 [facility] 2024-08-01 16:55:00 32.31 [facility] Body temperature 2024-07-21 07:50:10 37.17 Maritza [facility] Systolic blood pressure 2024-07-21 07:00:00 95 mm[Hg] [facility] Diastolic blood pressure 2024-07-21 07:00:00 53 mm[Hg] [facility] Heart rate 2024-07-21 07:00:00 58 /min [facility] Respiratory rate 2024-07-21 07:00:00 14 /min [facility] Oxygen saturation in Arterial blood by Pulse oximetry 2024-07-21 07:00:00 98 /min [facility] Body height 2024-07-19 06:02:00 154.9 cm [facility] Body weight 2024-07-19 06:02:00 75.5 kg [facility] BMI 2024-07-19 06:02:00 31.45 kg/m2 [facility] Body temperature 2024-07-21 07:50:10 37.17 Maritza [facility] Systolic blood pressure 2024-07-21 07:00:00 95 mm[Hg] [facility] Diastolic blood pressure 2024-07-21 07:00:00 53 mm[Hg] [facility] Heart rate 2024-07-21 07:00:00 58 /min [facility] Respiratory rate 2024-07-21 07:00:00 14 /min [facility] Oxygen saturation in Arterial blood by Pulse oximetry 2024-07-21 07:00:00 98 /min [facility] Body height 2024-07-19 06:02:00 154.9 cm [facility] Body weight 2024-07-19 06:02:00 75.5 kg [facility] BMI 2024-07-19 06:02:00 31.45 kg/m2 [facility] Systolic blood pressure 2024-07-04 18:15:00 135 mm[Hg] [facility] Diastolic blood pressure 2024-07-04 18:15:00 85 mm[Hg] [facility] Heart rate 2024-07-04 18:15:00 135 /min [facility] Body weight 2024-06-13 18:53:00 [facility].122 [facility] BMI 2024-06-13 18:53:00 24.18 kg/m2 [facility] Heart rate 2024-05-21 16:50:20 81 /min [facility] Respiratory rate 2024-05-21 16:50:20 18 /min [facility] Oxygen saturation in Arterial blood by Pulse oximetry 2024-05-21 16:50:20 100 /min [facility] Systolic blood pressure 2024-05-21 16:50:15 126 mm[Hg] [facility] Diastolic blood pressure 2024-05-21 16:50:15 84 mm[Hg] [facility] Body temperature 2024-05-21 16:50:07 37.33 Maritza [facility] Body weight 2024-05-17 22:50:00 72.2 kg [facility] BMI 2024-05-17 22:50:00 24.20 kg/m2 Chintan rial [facility] Body height 2024-05-17 18:00:00 172.7 cm Chintan rial [facility] Heart rate 2024-05-21 16:50:20 81 /min Memor ial [facility] Respiratory rate 2024-05-21 16:50:20 18 /min Farhad [facility] Oxygen saturation in Arterial blood by Pulse oximetry 2024-05-21 16:50:20 100 /min Farhad spears [facility] Systolic blood pressure 2024-05-21 16:50:15 126 mm[Hg] Farhad Rosas [facility] Diastolic blood pressure 2024-05-21 16:50:15 84 mm[Hg] Farhad spears [facility] Body temperature 2024-05-21 16:50:07 37.33 Maritza [facility] Body weight 2024-05-17 22:50:00 72.2 kg Chintanrolando mims [facility] BMI 2024-05-17 22:50:00 24.20 kg/m2 Chintanrolando mims [facility] Body height 2024-05-17 18:00:00 172.7 cm [facility] height 2023-10-16 14:00:00 61 [in_i] [facility] weight 2023-10-16 14:00:00 171.6 [lb_av] Co mmon [facility] temperature 2023-10-16 14:00:00 97.4 [degF] Com mon [facility] bmi 2023-10-16 14:00:00 32.42 kg/m2 Comm on [facility] oximetry 2023-10-16 14:00:00 97 % Com[facility] n [facility] respiratory rate 2023-10-16 14:00:00 18 /min Common [facility] blood pressure systolic 2023-10-16 14:00:00 126 mm[Hg] [facility] blood pressure diastolic 2023-10-16 14:00:00 68 mm[Hg] [facility] height 2023-08-10 08:15:00 61 [in_i] Commo n [facility] weight 2023-08-10 08:15:00 166 [lb_av] Comm on [facility] temperature 2023-08-10 08:15:00 97.8 [degF] Com mon [facility] bmi 2023-08-10 08:15:00 31.36 kg/m2 Comm [facility] oximetry 2023-08-10 08:15:00 97 % Commo n [facility] respiratory rate 2023-08-10 08:15:00 18 /min Common [facility] blood pressure systolic 2023-08-10 08:15:00 123 mm[Hg] [facility] blood pressure diastolic 2023-08-10 08:15:00 84 mm[Hg] [facility] Heart rate 2024-04-19 19:05:00 108 /min [facility] Body temperature 2024-04-19 19:05:00 37 Maritza [facility] Respiratory rate 2024-04-19 19:05:00 24 /min [facility] Oxygen saturation in Arterial blood by Pulse oximetry 2024-04-19 19:05:00 97 /min [facility] Systolic blood pressure 2024-04-19 19:00:00 159 mm[Hg] [facility] Diastolic blood pressure 2024-04-19 19:00:00 99 mm[Hg] [facility] Body height 2024-04-19 16:46:00 154.9 cm [facility] Body weight 2024-04-19 16:46:00 73.936 kg [facility] BMI 2024-04-19 16:46:00 30.80 kg/m2 [facility] Procedures Procedure Date / Time Performed Performing Clinician Source Magnesium Level 2025-01-03 00:00:00 Sascha mott [facility] Phosphorus Level 2025-01-03 00:00:00 Chintan mims [facility] Basic Metabolic Panel 2024-12-27 00:00:00 [facility] Complete Blood Count w/Diff and Platelet 2024-12-18 00:00:00 [facility] BASIC METABOLIC PANEL 2024-12-16 04:05:00 Jocelynn Duran [facility] COMPLETE BLOOD COUNT W/DIFF AND PLATELET 2024-12-16 04:05:00 Adam Duran [facility] COMPLETE BLOOD COUNT 2024-12-16 04:05:00 Peesh, Adam [facility] AUTOMATED DIFFERENTIAL 2024-12-16 04:05:00 Peesh, Pedr am [facility] BASIC METABOLIC PANEL 2024-12-15 04:25:00 Peesh, Pedra m [facility] COMPLETE BLOOD COUNT W/DIFF AND PLATELET 2024-12-15 04:25:00 Peesh, Adam [facility] AUTOMATED DIFFERENTIAL 2024-12-15 04:25:00 Peesh, Pedr am [facility] COMPLETE BLOOD COUNT 2024-12-15 04:25:00 [facility] MAN DIFF AND MORPH - DO NOT ORDER 2024-12-15 04:25:00 Peesh, [facility] BASIC METABOLIC PANEL 2024-12-14 00:13:00 Peesh, Ped m [facility] VANCOMYCIN LEVEL 2024-12-14 00:13:00 Camperlengo , Yelena [facility] MAGNESIUM LEVEL 2024-12-14 00:13:00 Camperlengo, Yelena [facility] PHOSPHORUS LEVEL 2024-12-14 00:13:00 Camperlengo , [facility] COMPLETE BLOOD COUNT W/DIFF AND PLATELET 2024-12-14 00:13:00 Peesh[facility] PT AND PTT 2024-12-14 00:13:00 [facility] 2024-12-14 00:13:00 Peesh, [facility] AUTOMATED DIFFERENTIAL 2024-12-14 00:13:00 Peesh, Pedr am [facility] BASIC METABOLIC PANEL 2024-12-13 16:55:00 Peesh, Pedra [facility] COMPLETE BLOOD COUNT W/DIFF AND PLATELET 2024-12-13 16:55:00 Peesh[facility] COMPLETE BLOOD COUNT 2024-12-13 16:55:00 Peesh, [facility] AUTOMATED DIFFERENTIAL 2024-12-13 16:55:00 Peesh, Pedr am [facility] POC GLUCOSE UNSOLICITED RESULTS 2024-12-13 16:02:00 Art Sanchez [facility] MRSA BY PCR 2024-12-13 15:58:00 Petequila, Adma Orourke [facility] CT BRAIN WO IV CONTRAST 2024-12-13 15:11:36 Petequila, Joao vazquez [facility] ECG 12-LEAD 2024-12-13 14:16:33 Petequila, Adam Orourke [facility] RESISTANT ACINETOBACTER SCREEN CULTURE 2024-12-13 14:02:00 Petequila, Adam [facility] PREPARE RBC 2024-12-13 13:45:51 Cristina, Phi L [facility] PREPARE FRESH FROZEN PLASMA 2024-12-13 13:45:51 Cristina, Phi L [facility] THROMBOELASTOGRAPH CLOTTING PROFILE 2024-12-13 13:39:00 Petequila, Adam [facility] PT AND PTT 2024-12-13 13:39:00 [facility]equila[facility] P[facility] ARTERIAL BLOOD GAS AND BASIC PANEL UNSOLICITED RESULTS 2024-12-13 12:21:00 Art Sanchez [facility] TRANSFUSE FRESH FROZEN PLASMA 2024-12-13 11:38:00 Cristina, Phi L [facility] TRANSFUSE RED BLOOD CELLS 2024-12-13 11:37:00 Cristina, Ph i L [facility] POC ARTERIAL BLOOD GAS AND BASIC PANEL UNSOLICITED RESULTS 2024-12-13 10:52:00 [facility] 2024-12-13 09:52:00 [facility] W[facility] W/GRAM STAIN, SURGICAL 2024-12-13 09:52:00 Art Sanchez [facility] AFB CULTURE W/SMEAR W/PCR IF INDICATED 2024-12-13 09:52:00 Art Sanchez [facility] FUNGAL CULTURE W/SMEAR 2024-12-13 09:52:00 Art Wood [facility] POC ARTERIAL BLOOD GAS AND BASIC PANEL UNSOLICITED RESULTS 2024-12-13 09:21:00 Art Sanchez [facility] POC URINE MANUALLY RESULTED 2024-12-13 06:29:00 Art Sanchez [facility] BASIC METABOLIC PANEL 2024-12-13 06:11:00 Jocelynn Duran [facility] TYPE AND SCREEN 2024-12-13 06:11:00 Lonny Bruno [facility] COMPLETE BLOOD COUNT W/DIFF AND PLATELET 2024-12-13 06:11:00 Adam Duran [facility] THROMBOELASTOGRAPH CLOTTING PROFILE 2024-12-13 06:11:00 Roger, [facility] PT AND PTT 2024-12-13 06:11:00 Adam Duran l [facility] COMPLETE BLOOD COUNT 2024-12-13 06:11:00 [facility] AUTOMATED DIFFERENTIAL 2024-12-13 06:11:00 Evelyn Duran am [facility] Comprehensive Metabolic Panel 2024-12-09 00:00:00 [facility] COMPREHENSIVE METABOLIC PANEL 2024-12-08 01:29:00 Sophia Fletcher [facility] VANCOMYCIN LEVEL 2024-12-08 01:29:00 Kj Shine [facility] POC GLUCOSE UNSOLICITED RESULTS 2024-12-07 13:11:00 Chance [facility] POC GLUCOSE UNSOLICITED RESULTS 2024-12-07 05:56:00 [facility] COMPREHENSIVE METABOLIC PANEL 2024-12-07 02:23:00 Chance Sophia [facility] VANCOMYCIN LEVEL 2024-12-07 02:23:00 Luke Fletcher i [facility] COMPLETE BLOOD COUNT W/DIFF AND PLATELET 2024-12-07 02:23:00 Chance Sophia [facility] COMPLETE BLOOD COUNT 2024-12-07 02:23:00 Mahogany Fletcher [facility] AUTOMATED DIFFERENTIAL 2024-12-07 02:23:00 Chance Sophia [facility] POC GLUCOSE UNSOLICITED RESULTS 2024-12-07 00:45:00 Chance [facility] VANCOMYCIN LEVEL 2024-12-06 08:24:00 Kj Shine [facility] TROPONIN I HIGH SENSITIVITY CARESET (1ST HR) 2024-12-06 08:24:00 Ximena Quijano [facility] CT BRAIN WO IV CONTRAST 2024-12-06 07:50:36 Raib augie, [facility] UA WITH MICROSCOPIC NO CULTURE 2024-12-06 07:37:00 Macie Ximena [facility] DRUG SCREEN URINE (8 DRUGS) 2024-12-06 07:37:00 Ximena Sims [facility] POC GLUCOSE UNSOLICITED RESULTS 2024-12-06 07:25:00 Sophia Fletcher [facility] ECG 12-LEAD 2024-12-06 05:08:53 Peg [facility] XR CHEST 1 VIEW 2024-12-06 04:49:00 Peg [facility] COMPREHENSIVE METABOLIC PANEL 2024-12-06 04:47:00 Fátima [facility] HEMOGLOBIN A1C 2024-12-06 04:47:00 Peg [facility] COMPLETE BLOOD COUNT W/DIFF AND PLATELET 2024-12-06 04:47:00 Fátima [facility] LIPID PANEL W/DIRECT LDL IF INDICATED 2024-12-06 04:47:00 [facility] THYROID STIMULATING HORMONE W/ REFLEX FREE T4 2024-12-06 04:47:00 Darion [facility] TROPONIN I HIGH SENSITIVITY (SINGLE ORDER) 2024-12-06 04:47:00 [facility] PT AND PTT 2024-12-06 04:47:00 Raibbcarmelo [facility] COMPLETE BLOOD COUNT 2024-12-06 04:47:00 Fátima [facility] AUTOMATED DIFFERENTIAL 2024-12-06 04:47:00 Travis rhodes [facility] COMP. METABOLIC PANEL (03374) 2024-12-06 03:29:00 Eloy Hill [facility] CBC WITH DIFF 2024-12-06 03:29:00 Eloy Hill [facility] PROTHROMBIN TIME / INR 2024-12-06 03:29:00 Dania Hill ise [facility] ACTIVATED PARTIAL THRMPLAS HEMANTH 2024-12-06 03:29:00 Eloy Hill [facility] POCT TEST 2024-12-06 02:24:00 Eloy Hill [facility] CT BRAIN WO IV CONTRAST 2024-12-06 01:45:00 Piña, Mcgregor [facility] BASIC METABOLIC PANEL 2024-12-06 00:49:00 Piña, [facility] HEPATIC FUNCTION PANEL 2024-12-06 00:49:00 Thais Schmid Omar [facility] HCG TOTAL (QUANTITATIVE) 2024-12-06 00:49:00 Piña, [facility] TYPE AND SCREEN 2024-12-06 00:49:00 Piña, Mcgregor [facility] COMPLETE BLOOD COUNT W/DIFF AND PLATELET 2024-12-06 00:49:00 Piña, [facility] PROTIME-INR 2024-12-06 00:49:00 Piña, [facility] PTT 2024-12-06 00:49:00 Piña, [facility] COMPLETE BLOOD COUNT 2024-12-06 00:49:00 Piña, [facility] AUTOMATED DIFFERENTIAL 2024-12-06 00:49:00 Piña, [facility] UA with microscopic no culture 2024-12-06 00:00:00 [facility] Troponin I High Sensitivity Panel with 1 hour reflex 2024-12-06 00:00:00 [facility] Troponin I High Sensitivity Careset (Baseline) 2024-12-06 00:00:00 [facility] CT brain wo IV contrast 2024-08-29 00:00:00 [facility] Complete Blood Count w/Diff and Platelet 2024-07-22 00:00:00 [facility] Basic Metabolic Panel 2024-07-22 00:00:00 [facility] BASIC METABOLIC PANEL 2024-07-21 00:13:00 Dariusz Forrest [facility] COMPLETE BLOOD COUNT W/DIFF AND PLATELET 2024-07-21 00:13:00 Daruisz Javed [facility] COMPLETE BLOOD COUNT 2024-07-21 00:13:00 Dariusz Javed [facility] AUTOMATED DIFFERENTIAL 2024-07-21 00:13:00 Trimb le, Dariusz Cyril [facility] CT BRAIN WO IV CONTRAST 2024-07-20 01:41:19 Kade suarez Benyunior Coronado [facility] BASIC METABOLIC PANEL 2024-07-20 00:31:00 Trimbl e, Dariusz Nam [facility] COMPLETE BLOOD COUNT W/DIFF AND PLATELET 2024-07-20 00:31:00 [place] Anne'SDariusz [facility] COMPLETE BLOOD COUNT 2024-07-20 00:31:00 Tello Dariusz [facility] AUTOMATED DIFFERENTIAL 2024-07-20 00:31:00 Trimb le, Dariusz Nam [facility] CT BRAIN WO IV CONTRAST 2024-07-19 13:47:01 Trim bleDariusz [facility] BASIC METABOLIC PANEL 2024-07-19 11:56:00 Trimbl eDariusz [facility] COMPLETE BLOOD COUNT (NO DIFF) 2024-07-19 11:56:00 [place]'SDariusz pederson [facility] CALCIUM LEVEL IONIZED WHOLE BLOOD 2024-07-19 11:56:00 TelloDariusz pederson [facility] PT AND PTT 2024-07-19 11:56:00 [place]'SDeanna [facility] ECG 12-LEAD 2024-07-19 06:40:00 Lonny Bruno [facility] BASIC METABOLIC PANEL 2024-07-19 06:12:00 TrimDariusz handy [facility] MAGNESIUM LEVEL 2024-07-19 06:12:00 TelloDeanna [facility] PHOSPHORUS LEVEL 2024-07-19 06:12:00 [place]'SDhruv pederson [facility] TYPE AND SCREEN 2024-07-19 06:12:00 [place]'SDeanna [facility] COMPLETE BLOOD COUNT (NO DIFF) 2024-07-19 06:12:00 Dariusz Javed [facility] PT AND PTT 2024-07-19 06:12:00 TelloDeanna pederson [facility] POC URINE MANUALLY RESULTED 2024-07-19 06:09:00 Art Sanchez [facility] Beta hCG Qualitative Urine 2024-07-19 00:00:00 [facility] CT brain wo IV contrast 2024-06-27 00:00:00 [facility] POCT Glucose 2024-06-16 00:00:00 [facility] Calcium Level Ionized Whole Blood 2024-06-15 00:00:00 [facility] Basic Metabolic Panel 2024-06-15 00:00:00 [facility] Complete Blood Count w/Diff and Platelet 2024-06-15 00:00:00 [facility] Phosphorus Level 2024-06-14 00:00:00 Chintan rial [facility] Magnesium Level 2024-06-14 00:00:00 Memor ial [facility] BASIC METABOLIC PANEL 2024-05-21 03:49:00 People s, Neisha Miranda [facility] COMPLETE BLOOD COUNT W/DIFF AND PLATELET 2024-05-21 03:49:00 Peoples, Neisha Miranda [facility] AUTOMATED DIFFERENTIAL 2024-05-21 03:49:00 Peopl es, Neisha Miranda [facility] CALCIUM LEVEL IONIZED WHOLE BLOOD 2024-05-21 03:49:00 Peoples, Neisha Miranda [facility] COMPLETE BLOOD COUNT 2024-05-21 03:49:00 Peoples , Neisha Miranda [facility] REFLEX MAN DIFF AND MORPH - DO NOT ORDER 2024-05-21 03:49:00 Peoples, Neisha Miranda [facility] BASIC METABOLIC PANEL 2024-05-20 13:43:00 CristinaTOMASA ng [facility] MAGNESIUM LEVEL 2024-05-20 13:43:[address] [facility] PHOS[facility] 2024-05-20 13:43:00 Cristian, Bridger [facility] POC GLUCOSE UNSOLICITED RESULTS 2024-05-20 07:38:00 Tigre Gonzales [facility] COMPLETE BLOOD COUNT W/DIFF AND PLATELET 2024-05-20 02:20:00 Peoples, Neisha Miranda [facility] CALCIUM LEVEL IONIZED WHOLE BLOOD 2024-05-20 02:20:00 Peoples, Neisha Miranda [facility] COMPLETE BLOOD COUNT 2024-05-20 02:20:00 Peoples , Neisha Miranda [facility] AUTOMATED DIFFERENTIAL 2024-05-20 02:20:00 Peopl es, Neisha Miranda [facility] BASIC METABOLIC PANEL 2024-05-20 02:19:00 People s, Neisha Miranda [facility] MAGNESIUM LEVEL 2024-05-20 02:19:00 Peoples, Ml Miranda [facility] PHOSPHORUS LEVEL 2024-05-20 02:19:00 Peoples, Hal Miranda [facility] BASIC METABOLIC PANEL 2024-05-19 10:58:00 Mary Cool, [facility] COMPLETE BLOOD COUNT W/DIFF AND PLATELET 2024-05-19 10:58:00 August Silvina, [facility] COMPLETE BLOOD COUNT 2024-05-19 10:58:00 August Cool, [facility] AUTOMATED DIFFERENTIAL 2024-05-19 10:58:[address] [facility] POC GLUCOSE UNSOLICITED RESULTS 2024-05-19 07:34:00 Tigre Gonzales [facility] PREPARE RBC 2024-05-19 07:00:41 Rut Ashraf [facility] TRANSFUSE RED BLOOD CELLS 2024-05-19 06:23:00 Adagbcaprice Monisha [facility] BASIC METABOLIC PANEL 2024-05-19 03:13:00 People s, Neisha Miranda [facility] COMPLETE BLOOD COUNT W/DIFF AND PLATELET 2024-05-19 03:13:00 Peoples, Neisha Miranda [facility] COMPLETE BLOOD COUNT 2024-05-19 03:13:00 Peoples , Neisha Miranda [facility] AUTOMATED DIFFERENTIAL 2024-05-19 03:13:00 Peopl es, Neisha Miranda [facility] CALCIUM LEVEL IONIZED WHOLE BLOOD 2024-05-19 00:46:00 Peoples, Neisha Miranda [facility] XR HUMERUS 2 VIEWS RIGHT 2024-05-18 23:16:55 AdaMonisha son [facility] XR FEMUR 2+ VW LEFT 2024-05-18 23:16:29 AdaEzequiel son taylore [facility] XR FEMUR 2+ VW RIGHT 2024-05-18 23:15:57 AdaMary son [facility] XR HUMERUS 2 VIEWS LEFT 2024-05-18 23:15:09 AdahuyMarti atience [facility] XR PELVIS 1-2 VIEWS 2024-05-18 23:14:46 CorinaEzequiel eden [facility] ECG 12-LEAD 2024-05-18 22:07:45 [facility]isha [facility] POC GLUCOSE UNSOLICITED RESULTS 2024-05-18 19:45:00 Abran Barrera [facility] POC GLUCOSE UNSOLICITED RESULTS 2024-05-18 07:41:00 Abran Barrera [facility] EXTUBATION 2024-05-18 04:42:28 PeopleMl alonzo Mae [facility] CT BRAIN WO IV CONTRAST 2024-05-18 04:12:44 Juan Miguel Calhoun [facility] ECG 12-LEAD 2024-05-18 02:39:21 [facility] HIGH SENSITIVITY CARESET (1ST HR) 2024-05-18 00:23:00 Peoples Neisha Underwoode [facility] Ethanol Level 2024-05-18 00:00:00 Haven [facility] Blood Gas, Arterial 2024-05-18 00:00:00 [facility] POC GLUCOSE UNSOLICITED RESULTS 2024-05-17 23:46:00 Abran Barrera [facility] POC ARTERIAL BLOOD GAS PANEL UNSOLICITED RESULTS 2024-05-17 23:45:00 Abran Barrera [facility] COMPREHENSIVE METABOLIC PANEL 2024-05-17 23:27:00 Adam Duran [facility] COMPLETE BLOOD COUNT W/DIFF AND PLATELET 2024-05-17 23:27:00 Adam Duran [facility] CALCIUM LEVEL IONIZED WHOLE BLOOD 2024-05-17 23:27:00 Peoples Neisha Ruth [facility] TROPONIN I HIGH SENSITIVITY CARESET 2024-05-17 23:27:00 Peoples Neisha Miranda [facility] TROPONIN I HIGH SENSITIVITY CARESET (BASELINE) 2024-05-17 23:27:00 Peoples Neisha Underwoode [facility] LACTIC ACID WITH 2 HOUR REFLEX 2024-05-17 23:27:00 Desi Hawkins [facility] PT AND PTT 2024-05-17 23:27:[address] [facility] COMPLETE BLOOD COUNT 2024-05-17 23:27:00 Petequila, Adam [facility] AUTOMATED DIFFERENTIAL 2024-05-17 23:27:00 Petequila, Pedr am [facility] MRSA BY PCR 2024-05-17 23:26:00 Adam Duran [facility] THROMBOELASTOGRAPH CLOTTING PROFILE 2024-05-17 23:17:[address] [facility] CT ANGIOGRAM BRAIN NECK 2024-05-17 22:40:[address] [facility] CT BRAIN WO IV CONTRAST 2024-05-17 22:40:42 Estelle Hawkins [facility] POC ARTERIAL BLOOD GAS AND BASIC PANEL UNSOLICITED RESULTS 2024-05-17 20:50:00 Abran Barrera [facility] POC ARTERIAL BLOOD GAS AND BASIC PANEL UNSOLICITED RESULTS 2024-05-17 19:36:00 Abran Barrera [facility] PREPARE RBC 2024-05-17 19:12:03 System, Prov ider Not In [facility] PREPARE FRESH FROZEN PLASMA 2024-05-17 19:12:03 System, Provider Not In [facility] CRANIOTOMY 2024-05-17 18:47:00 Mahogany Barrera [facility] UA WITH MICROSCOPIC NO CULTURE 2024-05-17 18:24:00 Desi Hawkins [facility] DRUG SCREEN URINE (8 DRUGS) 2024-05-17 18:24:00 Desi Hawkins [facility] BETA HCG QUALITATIVE URINE 2024-05-17 18:24:00 Adam Duran [facility] XR CHEST 1 VIEW 2024-05-17 18:19:00 Rocio Richardson [facility] XR CHEST 1 VIEW 2024-05-17 18:18:49 Desi Hawkins [facility] TYPE AND SCREEN 2024-05-17 18:11:00 Desi Hawkins [facility] BLOOD GAS, VENOUS 2024-05-17 18:10:00 Desi Hawkins Ra [facility] BASIC METABOLIC PANEL 2024-05-17 18:09:00 Jerica Hawkins [facility] ETHANOL LEVEL 2024-05-17 18:09:00 Desi Hawkins [facility] CREATINE KINASE (CK TOTAL) 2024-05-17 18:09:00 Paul Hawkins [facility] MAGNESIUM LEVEL 2024-05-17 18:09:00 Peoples, Ml Miranda [facility] PHOSPHORUS LEVEL 2024-05-17 18:09:00 Peoples, Hal bernal Mae [facility] HCG TOTAL (QUANTITATIVE) 2024-05-17 18:09:00 Jamaica Hawkins [facility] COMPLETE BLOOD COUNT W/DIFF AND PLATELET 2024-05-17 18:09:00 Desi Hawkins [facility] PROTIME-INR 2024-05-17 18:09:00 Peoples, Ml webster Miranda [facility] THROMBOELASTOGRAPH RAPID 2024-05-17 18:09:00 Jamaica Hawkins [facility] LACTIC ACID WITH 2 HOUR REFLEX 2024-05-17 18:09:00 Desi Hawkins [facility] COMPLETE BLOOD COUNT 2024-05-17 18:09:00 Desi Hawkins [facility] AUTOMATED DIFFERENTIAL 2024-05-17 18:09:00 Mery Hawkins [facility] REFLEX MORPHOLOGY - DO NOT ORDER 2024-05-17 18:09:00 Desi Hawkins [facility] Thromboelastograph Rapid 2024-05-17 00:00:00 [facility] Resistant Acinetobacter Screen Culture 2024-05-17 00:00:00 [facility] Prepare Plasma: 2 Units Transfusion indications: Hold for surgery 2024-05-17 00:00:00 [facility] HB ECG ROUTINE & RHYTHM STRIP 2024-04-19 17:43:18 Dylon Castellanos [facility] CBC WITH DIFF 2024-04-19 17:37:00 Dylon Castellanos [facility] COMP. METABOLIC PANEL (68412) 2024-04-19 17:37:00 Dylon Castellanos [facility] ETHANOL 2024-04-19 17:37:00 Dylon Castellanos [facility] TROPONIN I 2024-04-19 17:37:00 Dylon Castellanos [facility] N-TERMINAL PRO-BNP 2024-04-19 17:37:00 Dylon Castellanos [facility] CT HEAD WO CONTRAST 2024-04-19 17:33:00 Daylin Castellanos [facility] URINALYSIS 2024-04-19 17:33:00 Dylon Castellanos [facility] URINE DRUG (IMMUNOASSAY) - COMPREHENSIVE DRUG SCREEN W/O REFLEX 2024-04-19 17:33:00 Dylon Castellanos [facility] POCT TEST 2024-04-19 17:32:00 Daylin Castellanos [facility] Gram Stain Intraoperative Nd morial Ryan Epic Incentive spirometry [facility] Phosphorus Level [facility] Anaerobic Culture [facility] Culture w/Smear w/PCR if Indicated [facility] Fungal Culture w/[facility] Plan of Care Planned Activity Planned Date Details Comments Source Procedure 2025-01-13 00:00:00 Magnesium Level [facility] Encounters Start Date/Time End Date/Time Encounter Type Admission Type Attending [facility] Care Facility Care Department Encounter ID Source 2024-02-19 13:44:00 [facility] [id number] 2023-08-10 08:13:01 Outpatient Omero Anna [facility] [id number] 2025-02-12 09:15:00 2025-02-12 09:15:00 Outpatient ABIGAIL MAS [facility] [id number] [facility] 2025-02-06 09:50:00 2025-02-06 09:50:00 Outpatient [facility] [id number] [facility] 2024-12-26 10:36:15 2024-12-26 11:50:34 Outpatient MHEOUT [facility] [id number] [facility] 2024-12-26 11:40:00 2024-12-26 11:40:00 Office Visit Clinic, [facility] [address] 1.2.840.114 350.1.13.58 [id number] [id number] [facility] 2024-12-13 04:52:00 2024-12-16 14:44:00 Inpatient Elective CHAUNCEY BETH [facility] General Medicine [id number] [facility] 2024-12-13 04:52:00 2024-12-16 14:44:00 Hospital Encounter Art Sanchez Aaron [facility] 1.2.840.114 350.1.13.70 8.2.7.2.686 [id number] Haven rob [facility] 2024-12-12 09:10:49 2024-12-12 19:00:45 Outpatient Elective MHEOUT M[facility] [id number] [facility] 2024-12-12 10:20:00 2024-12-12 16:21:12 Office Visit ART SANCHEZ [address] 1.2.840.114 350.1.13.58 9.2.7.2.686 [id number] [facility] 2024-12-06 00:20:00 2024-12-08 08:56:00 Inpatient Emergency [facility] General Medicine [id number] [facility] 2024-12-06 00:20:00 2024-12-08 08:56:00 Hospital Encounter Balbir Piña Ryan Seiji Bowry, Ritvij Kondapalli [facility] 1.2.840.114 350.1.13.70 8.2.7.2.686 [id number] Memoria l [facility] 2024-12-06 01:00:18 2024-12-06 01:00:18 Outpatient MHIEEPIC IEEPIC [id number] Memoria l Ryan [facility] 2024-12-06 00:58:39 2024-12-06 00:58:39 Outpatient [facility] [id number] [facility] 2024-12-06 00:00:00 2024-12-06 00:58:39 Orders Only System, Provider Not In [facility] 1.2.840.114 350.1.13.70 8.2.7.2.686 [id number] Haven rob [facility] 2024-12-05 20:55:00 2024-12-05 23:25:00 Emergency X [facility] ERT [id number] [facility] 2024-08-29 08:05:02 2024-08-29 15:46:14 Outpatient [facility] [id number] [facility] 2024-08-29 10:10:00 2024-08-29 10:10:00 Office Visit ART SANCHEZ [address] 1.2.840.114 350.1.13.58 9.2.7.2.686 [id number] [facility] 2024-08-29 00:00:00 2024-08-29 00:00:00 Orders Only Art Sanchez danyelle [facility] 1.2.840.114 350.1.13.70 8.2.7.2.686 [id number] Haven rob [facility] 2024-08-01 12:10:00 2024-08-01 12:10:00 Office Visit ART SANCHEZ [address] 1.2.840.114 350.1.13.58 9.2.7.2.686 [id number] [facility] 2024-07-19 05:00:00 2024-07-21 11:37:00 Inpatient Elective ART SANCHEZ [facility] [id number] [facility] 2024-07-19 05:00:00 2024-07-21 11:37:00 Hospital Encounter Art Sanchez [facility] 1.2.840.114 350.1.13.70 8.2.7.2.686 [id number] Haven Davis [facility] 2024-07-04 12:40:00 2024-07-04 12:40:00 Office Visit ART SANCHEZ [address] 1.2.840.114 350.1.13.58 9.2.7.2.686 [id number] [facility] 2024-07-01 12:42:56 2024-07-01 13:06:35 Outpatient Elective MHEOUT M[facility]OUT [id number] [facility] 2024-06-27 00:00:00 2024-06-27 00:00:00 Orders Only [facility] 1.2.840.114 350.1.13.70 8.2.7.2.686 [id number] Haven Davis [facility] 2024-05-13 00:00:00 2024-06-15 18:17:10 Patient Secure Msg Doctor Unassigned, [place] 1.2.840.1 [id number] .[id number] [facility] 2024-06-14 14:20:00 2024-06-14 14:20:00 Outpatient [facility] [id number] [facility] 2024-06-13 14:20:00 2024-06-13 14:20:00 Office Visit ART SANCHEZ [facility] [address] 1.2.840.114 350.1.13.58 9.2.7.2.686 [id number] [facility] 2024-06-11 09:45:54 2024-06-11 09:55:52 Outpatient Elective MHEOUT M[facility]OUT [id number] [facility] 2024-05-17 17:53:00 2024-05-21 17:01:00 Inpatient Trauma Center ABRAN BARRERA [facility] Neurology [id number] [facility] 2024-05-17 17:53:00 2024-05-21 17:01:00 Hospital Encounter Desi Hawkins Barrera, Tez Boschlizyxiomara Haider [facility] 1.2.840.114 350.1.13.70 8.2.7.2.686 [id number] Haven Davis [facility] 2024-05-17 18:32:01 2024-05-17 23:59:00 Outpatient [facility] [id number] [facility] 2024-05-17 18:32:01 2024-05-17 23:59:00 Outpatient [facility] [id number] [facility] 2024-05-17 18:32:01 2024-05-17 23:59:00 Outpatient [facility] [id number] [facility] 2024-05-17 18:23:55 2024-05-17 23:59:00 Outpatient [facility] [id number] [facility] 2024-05-17 18:13:14 2024-05-17 23:59:00 Outpatient [facility] [id number] [facility] 2024-05-13 00:00:00 2024-05-13 11:22:19 Letter (Out) Godfrey Orr 1.2.840.1 [id number] .[id number] [facility] 2024-04-22 00:00:00 2024-04-22 00:00:00 Outpatient R RADIOLOGY [facility] [id number] [facility] 2024-04-19 10:49:00 2024-04-19 13:19:00 Emergency Dylon Castellanos 1.2.840.1 [id number] .[id number] [facility] 2024-04-19 10:49:00 2024-04-19 13:19:00 Emergency X DYLON CASTELLANOS [facility] [id number] [facility] 2024-04-19 00:00:00 2024-04-19 00:00:00 Travel 1.2.840.1 [id number] 3.104.2.7 [id number] 1.2.840.114 350.1.13.10 4.2.7.3.698 [id number] [facility] 2023-10-16 00:00:00 2023-10-16 00:00:00 OFFICE VISIT ESTAB PT LEVEL 3 STLMLC STLMLC [id number] [facility] 2023-08-10 00:00:00 2023-08-10 00:00:00 OFFICE VISIT NEW PT LEVEL 4 STLMLC STLC [id number] [facility] Results Test Description Test Time Test Comments Results Result Co mments Source [facility] EpicWound Culture w/Gram Stain, [id number] 13:48:33* Test Item Value Reference Range Interpretation Comme nts Wound Culture (test code = 6462-6) No growth Gram Stain (test code = 79405-9) No organisms seen [facility] EpicResistant Acinetobacter Screen [id number] 08:21:04* Test Item Value Reference Range Interpretation Comme nts Acinetobacter Culture (test code = 95158-7) No Acinetobacter isolated [facility] EpicPOC [id number] 17:31:33* Test Item Value Reference Range Interpretation Comme nts POC Glu (test code = 61355-0) 154 mg/dL 70-99 H POC Glu Comment 1 (test code = 4535068954) Notified RN/MD POC Performing Location (josse t code = 2092815123) [facility] Lab Interpretation (test cod e = 30751-8) Abnormal [facility] EpicCT BRAIN WO IV [id number] 16:44:55EXAM: CT BRAIN WITHOUT CONTRAST DATE: 12/13/2024 15:01 INDICATION: postop ? status post right- sided craniectomy/washout/rightcranioplasty for titanium implant on 12/13/2024. COMPARISON: CT brain without contrast 12/12/2024. TECHNIQUE: Axial CT images of the brain were obtained. Sagittal and coronalreformats.IV contrast: NoneDLP: Refer to CT protocol form FINDINGS:Interval surgical intervention on the right with removal of the craniotomy flapand placement of titanium implant covering right frontal temporal and parietalregion. The implant appears closely approximated with the remaining calvarialbone. There is significant streak artifact resulting from the implant obscuringthe lateral aspect of theunderlying hemisphere (both the parenchyma andextra-axial space). The artifact exists despite use of metal artifact reductiontechnique. There is no significant edema, hemorrhage, mass lesion or otheracuteintracranial abnormality within the visible portions of the parenchyma. Slightright to left shift is unchanged from prior. Right temporal lobe artifactual obstruction precludes reevaluation of pr eviouslynoted right temporal hemorrhagic contusion. No hydrocephalus or mass effect. The remaining skull base, calvarium, and included facial bones are unremarkable.The paranasal sinuses are predominantly clear. IMPRESSION:* ?Interval replacement of the craniotomy flap by a titanium implant overlyin gfrontal parietal and temporal regions. The implant appears well approximatedwith adjacent calvarial bone. * ?Significant metallic streak artifact from the implant precludes evaluation ofthe underlying parenchyma, including previously noted right temporal hemorrhagiccontusion.* ?Degree of slight midline shift from right to left is unchanged. This report was dictated by a Donor Center Technician/Fellow/KUNAL: Kane Huang MD12/13/2024 15:52 This report was dictated by a Donor Center Technician/Fellow/Physician Cut To Length Operator. Ihave personally reviewed the images as well as the interpretation and agree withthe f indings. Report finalized by: Kamran Gardner MD 12/13/2024 16:44Sirobinson, Kamran Mathews MD -12/13/2024 EXAM: CT BRAIN WITHOUT CONTRASTDATE: 12/13/2024 15:01INDICATION: postop status post right-sided craniectomy/washout/rightcranioplasty for titanium implant on 12/13/2024.COMPARISON: CT brain without contrast 12/12/2024.TECHNIQUE: Axial CT images of the brain were obtained. Sagittal and coronalreformats.IV contrast: NoneDLP: Refer toCT protocol formFINDINGS:Interval surgical intervention on the right with removal of the craniotomyflapand placement of titanium implant covering right frontal temporal and parietalregion. The implant appears closely approximated with the remaining calvarialbone. There is significant streak artifact resulting from the implant obscuringthe lateral aspect of the underlying hemisphere (both the parenchyma andextra-axial space). The artifact exists despite use of metal artifact reductiontechnique.There is no significant edema, hemorrhage, mass lesion or other acuteintracranial abnormality withinthe visible portions of the parenchyma. Slightright to left shift is unchanged from prior.Right temporal lobe artifactual obstruction precludes reevaluation of previouslynoted right temporal hemorrhagic contusion.No hydrocephalus or mass effect.The remaining skull base, calvarium, and included facial bones are unremarkable.The paranasal sinuses are predominantly clear.IMPRESSION:* Interval replacement of the craniotomy flap by a titanium implant overlyingfrontal parietal and temporal regions. The implant appears well approximatedwith adjacent calvarial bone. * Significant metallic streak artifact from the implant precludes evaluation ofthe underlying parenchyma, including previously noted right temporal hemorrhagiccontusion.* Degree of slight midline shift from right to left is unchanged.This report was dictated by a Donor Center Technician/Fellow/KUNAL: Kane Huang MD12/13/2024 15:52This report was dictated by a Donor Center Technician/Fellow/Physician Cut To Length Operator. Ihave personally reviewed the images as well as the interpretation and agree withthe findings.Report finalized by: Kamran Gardner MD 12/13/2024 16:44[facility] EpicPrepare RBC: 2 Units 2024-12-13 13:45:51* Test Item Value Reference Range Interpretation Comme nts Product Code (test code = 25) [id number] Unit Number (test code = 1624) [id number] Unit ABO (test code = 4981439) O Unit RH (test code = 5550692) NEG Crossmatch (test code = 8558819) Compatible Dispense Status (test code = 1623) Transfused Blood Expiration Date (test code = 530) Product Blood Type (test cod e = 532) Unit Volume (test code = 1322-7) 284 mL [facility] EpicPrepar Plasma: 2 Units Transfusion indications: Clinically significant hemorrhage due to clotting factor deficiency/wdxjxd9182-93-53 13:45:51* Test Item Value Reference Range Interpretation Comme nts Product Code (test code = 25) [id number] Unit Number (test code = 1624) [id number] Unit ABO (test code = 6508840) O Unit RH (test code = 8892287) POS Dispense Status (test code = 1623) Transfused Blood Expiration Date (test code = 530) Product Blood Type (test cod e = 532) Unit Volume (test code = 1322-7) 295 mL [facility] Arterial Blood Gas and Basic Vclbw5169-79-08 12:23:41* Test Item Value Reference Range Interpretation Comme nts POC A Temp (test code = 9484361703) DegC POC A Source (test code = 5649558288) ART POC A pH (test code = 2744-1) 7.35-7.45 POC A PCO2 (test code = 2019-8) See_Comment L [Automated messa ge] The system which generated this result transmitted reference range: 35 - 45 mmHg. The reference range was not used to interpret this result as normal/abnormal. POC A PO2 (test code = 2703-7) See_Comment [Automated messa ge] The system which generated this result transmitted reference range: 80 - 100 mmHg. The reference range was not used to interpret this result as normal/abnormal. POC A HCO3 (test code = 1960-4) See_Comment L [Automated messa ge] The system which generated this result transmitted reference range: 22 - 26 mMol/L. The reference range was not used to interpret this result as normal/abnormal. POC A BE (test code = 1925-7) See_Comment L [Automated messa ge] The system which generated this result transmitted reference range: -2 - 2 mMol/L. The reference range was not used to interpret this result as normal/abnormal. POC A O2 Sat (calc) (test code = 2708-6) 99.7 % 95-100 POC A Hgb Tot (test code = 72158-2) 8.9 g/dL 11.2-15.7 L POC A Hct (calc) (test code = 80017-0) 27.0 % 34.1-44.9 L POC A Na (test code = 24931-9) See_Comment L [Automated messa ge] The system which generated this result transmitted reference range: 135 - 145 mEq/L. The reference range was not used to interpret this result as normal/abnormal. POC A K (test code = 3593413) See_Comment [Automated messa ge] The system which generated this result transmitted reference range: 3.5 - 5.1 mEq/L. The reference range was not used to interpret this result as normal/abnormal. POC Chloride (test code = 3938785) See_Comment [Automated messa ge] The system which generated this result transmitted reference range: 95 - 109 mEq/L. The reference range was not used to interpret this result as normal/abnormal. POC A Glu (test code = 2339-0) 134 mg/dL 70-99 H POC A LA (test code = 224) See_Comment [Automated messa ge] The system which generated this result transmitted reference range: 0.5 - 2.2 mMol/L. The reference range was not used to interpret this result as normal/abnormal. POC A Ca Ion (test code = 31324-9) See_Comment [Automated messa ge] The system which generated this result transmitted reference range: 1.05 - 1.25 mMol/L. The reference range was not used to interpret this result as normal/abnormal. POC A Ca Ion (7.4) (test code = 8090306121) 1.09 mmol/L 1.05-1.25 POC Performing Location (test code = 9160082402) [facility] Lab Interpretation (test code = 23504-3) Abnormal [facility] Arterial Blood Gas and Basic Fjact1322-19-68 10:56:49* Test Item Value Reference Range Interpretation Comme nts POC A Temp (test code = 4825165768) DegC POC A Source (test code = 5544456965) ART POC A pH (test code = 2744-1) 7.35-7.45 POC A PCO2 (test code = 2019-8) See_Comment [Automated messa ge] The system which generated this result transmitted reference range: 35 - 45 mmHg. The reference range was not used to interpret this result as normal/abnormal. POC A PO2 (test code = 2703-7) See_Comment [Automated messa ge] The system which generated this result transmitted reference range: 80 - 100 mmHg. The reference range was not used to interpret this result as normal/abnormal. POC A HCO3 (test code = 1960-4) See_Comment L [Automated messa ge] The system which generated this result transmitted reference range: 22 - 26 mMol/L. The reference range was not used to interpret this result as normal/abnormal. POC A BE (test code = 1925-7) See_Comment L [Automated messa ge] The system which generated this result transmitted reference range: -2 - 2 mMol/L. The reference range was not used to interpret this result as normal/abnormal. POC A O2 Sat (calc) (test code = 2708-6) 99.8 % 95-100 POC A Hgb Tot (test code = 84819-1) 9.0 g/dL 11.2-15.7 L POC A Hct (calc) (test code = 00666-6) 27.0 % 34.1-44.9 L POC A Na (test code = 54083-7) See_Comment L [Automated messa ge] The system which generated this result transmitted reference range: 135 - 145 mEq/L. The reference range was not used to interpret this result as normal/abnormal. POC A K (test code = 1189648) See_Comment [Automated messa ge] The system which generated this result transmitted reference range: 3.5 - 5.1 mEq/L. The reference range was not used to interpret this result as normal/abnormal. POC Chloride (test code = 4088561) See_Comment [Automated messa ge] The system which generated this result transmitted reference range: 95 - 109 mEq/L. The reference range was not used to interpret this result as normal/abnormal. POC A Glu (test code = 2339-0) 111 mg/dL 70-99 H POC A LA (test code = 224) See_Comment [Automated messa ge] The system which generated this result transmitted reference range: 0.5 - 2.2 mMol/L. The reference range was not used to interpret this result as normal/abnormal. POC A Ca Ion (test code = 61535-2) See_Comment [Automated messa ge] The system which generated this result transmitted reference range: 1.05 - 1.25 mMol/L. The reference range was not used to interpret this result as normal/abnormal. POC A Ca Ion (7.4) (test code = 1767542898) 1.10 mmol/L 1.05-1.25 POC Performing Location (test code = 3324810194) [facility] Lab Interpretation (test code = 78884-2) Abnormal [facility] Arterial Blood Gas and Basic Frikg6087-27-33 09:23:55* Test Item Value Reference Range Interpretation Comme nts POC A Temp (test code = 5831137827) DegC POC A Source (test code = 3238107522) ART POC A pH (test code = 2744-1) 7.35-7.45 L POC A PCO2 (test code = 2019) See_Comment [Automated messa ge] The system which generated this result transmitted reference range: 35 - 45 mmHg. The reference range was not used to interpret this result as normal/abnormal. POC A PO2 (test code = 2703-7) See_Comment [Automated messa ge] The system which generated this result transmitted reference range: 80 - 100 mmHg. The reference range was not used to interpret this result as normal/abnormal. POC A HCO3 (test code = 1960-4) See_Comment L [Automated messa ge] The system which generated this result transmitted reference range: 22 - 26 mMol/L. The reference range was not used to interpret this result as normal/abnormal. POC A BE (test code = 1925-7) See_Comment L [Automated messa ge] The system which generated this result transmitted reference range: -2 - 2 mMol/L. The reference range was not used to interpret this result as normal/abnormal. POC A O2 Sat (calc) (test code = 2708-6) 99.8 % 95-100 POC A Hgb Tot (test code = 29053-7) 10.4 g/dL 11.2-15.7 L POC A Hct (calc) (test code = 82075-2) 31.0 % 34.1-44.9 L POC A Na (test code = 56625-7) See_Comment L [Automated messa ge] The system which generated this result transmitted reference range: 135 - 145 mEq/L. The reference range was not used to interpret this result as normal/abnormal. POC A K (test code = 9060000) See_Comment [Automated messa ge] The system which generated this result transmitted reference range: 3.5 - 5.1 mEq/L. The reference range was not used to interpret this result as normal/abnormal. POC Chloride (test code = 9069282) See_Comment [Automated messa ge] The system which generated this result transmitted reference range: 95 - 109 mEq/L. The reference range was not used to interpret this result as normal/abnormal. POC A Glu (test code = 2339-0) 107 mg/dL 70-99 H POC A LA (test code = 224) See_Comment [Automated messa ge] The system which generated this result transmitted reference range: 0.5 - 2.2 mMol/L. The reference range was not used to interpret this result as normal/abnormal. POC A Ca Ion (test code = 40421-5) See_Comment [Automated messa ge] The system which generated this result transmitted reference range: 1.05 - 1.25 mMol/L. The reference range was not used to interpret this result as normal/abnormal. POC A Ca Ion (7.4) (test code = 6588951756) 1.14 mmol/L 1.05-1.25 POC Performing Location (test code = 8470012381) [facility] Lab Interpretation (test code = 59160-1) Abnormal [facility] Urine Manually Dcjnhgsf5965-57-89 06:29:00* Test Item Value Reference Range Interpretation Comme [facility] POC U Preg (test code = 5781930750) Negative POC Internal QC (test code = 2153406589) Pass [facility] Abvzemn1248-72-04 14:11:48* Test Item Value Reference Range Interpretation Comme [facility] POC Glu (test code = 98207-4) 104 mg/dL 70-99 H POC Glu Comment 1 (test code = 5526859538) Notified RN/MD POC Performing Location (josse t code = 9932742577) J3 [facility] Lab Interpretation (test cod e = 89185-0) Abnormal [facility] Igysxim0209-81-03 06:28:55* Test Item Value Reference Range Interpretation Comme nts POC Glu (test code = 75951-1) 111 mg/dL 70-99 H POC Glu Comment 1 (test code = 2442756934) Notified RN/MD POC Performing Location (josse t code = 0804149941) [facility] Lab Interpretation (test cod e = 15962-3) Abnormal [facility] Jhqchyg4585-40-08 00:49:16* Test Item Value Reference Range Interpretation Comme nts POC Glu (test code = 29792-6) 123 mg/dL 70-99 H POC Glu Comment 1 (test code = 2981500855) Notified RN/MD POC Performing Location (josse t code = 5220406559) J3 [facility] Lab Interpretation (test cod e = 69705-1) Abnormal [facility] 12 tnkw7343-01-90 09:18:36* Test Item Value Reference Range Interpretation Comme nts Ventricular Rate (test code = 1654998722) BPM Atrial Rate (test code = 0038049638) BPM [place] Interval (test code = 1047119844) 186 ms QRS Duration (test code = 0155660685) 80 ms QT/QTc (test code = 1947055875) 392 ms QTc Calculation (test code = 6510932169) 446 ms P-Rockwell (test code = 7695131657) degrees R-Rockwell (test code = 8912483430) degrees T-Rockwell (test code = 9913628743) degrees IMP (test code = IMP) PXN (test code = PXN) [facility] Efxhdru3282-29-59 08:01:33* Test Item Value Reference Range Interpretation Comme nts POC Glu (test code = 98513-0) 77 mg/dL 70-99 POC Performing Location (josse t code = 0543062852) J7 [facility]. METABOLIC PANEL (00549)2024-12-06 03:52:04* Test Item Value Reference Range Interpretation Comme nts NA (test code = 0144981022) 140 mmol/L 135-145 K (test code = 4213886648) 4.1 mmol/L 3.5-5.0 CL (test code = 6216174974) 109 mmol/L 98-108 H CO2 TOTAL (test code = 5600571604) 18 mmol/L 23-31 L AGAP (test code = 1895701765) 13 2-16 BUN (test code = 9935545317) 11 mg/dL 7-23 GLUCOSE (test code = 4713057999) 89 mg/dL 70-110 CREATININE (test code = 2160-0) 0.7 mg/dL 0.50-1.04 TOTAL BILI (test code = 3533196519) 0.5 mg/dL 0.1-1.1 CALCIUM (test code = 7791428737) 8.4 mg/dL 8.6-10.6 L T PROTEIN (test code = 6448388143) 8.4 g/dL 6.3-8.2 H ALBUMIN (test code = 9683157803) 4.5 g/dL 3.5-5.0 ALK PHOS (test code = 0115827385) 64 U/L 34-122 ALTv (test code = 1742-6) 18 U/L 5-35 AST(SGOT) (test code = 8098381024) 27 U/L 13-40 eGFR (test code = 25791-9) 118 mL/min/1.73m2 CKD-EPI eGFR (2020). Assuming creatinine has been stable day-to-day for at least three months, the eGFR indicates Category G1 (>= 90 mL/min/1.73 m2) Lab Interpretation (test code = 23102-3) [facility] / ARA2294-26-21 03:47:22* Test Item Value Reference Range Interpretation Comme [facility] PROTIME PATIENT (test code = 5964-2) 11.4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 hemicraniectomy (05/17/24) and R-sided cranioplasty (07/19/24) and recent admission 12/06-12/08 after hitting head on corner of table after mechanical fall tripping over dog. Workup notable for SDH, temporal contusion, comminuted fracture of the cranioplasty w/ pneumocephalus surrounding the bone, and laceration behind the ear near cranioplasty site. In summary, open depressed skull fracture with gross contamination. She received nafcillin (12/05), ceftriaxone (12/05-12/07), and vancomycin (12/05-12/07) inpatient and was discharged with 7x days of levofloxacin and TMP/SMX with plans for custom titanium implant to replace the fractures of the bone flap. She was compliant with the PO antibiotics. She presents this time on 12/13 for the procedure and with the OR on 12/13 w/ operative report notable for: chamber above the bone w/ old blood and some possibly infected fluid; all prior titanium implants removed; all prior cranioplasty removed; placement of custom titanium implant and fixed with screws; skin closed. On interview she denies any fevers throughout this, denies any CP/SOB, denies any abdominal pain, and denies any diarrhea (has soft stools). 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 OR cultures are negative for both stain and growth. She has remained afebrile. Labs are notable for Cr 0.60 (CrCl 124), stable WBC in the normal range, stable slightly low platelets that was present even back during the prior admission, completely normal differential. 12/13 EKG w/ 459 Qtc. Would recommend to resume the prior PO regimen of levofloxacin and TMP/SMX. While it may seem atypical to treat CUSHION GUM APPLICATOR infections with a PO regimen, it is appropriate in this case for the following reasons. First, OR cultures were negative, suggesting that the PO regimen was efficacious. Second, the spectrum of activity of levofloxacin and TMP/SMX is unique and it is not fully equivalent to our usual IV CUSHION GUM APPLICATOR antibiotic combinations. So if I placed her on something like vancomycin/ceftriaxone or vancomycin/cefepime, it is not equivalent and would have the concern of missed coverage. Third, both levofloxacin and TMP/SMX is highly bioavailable so there is really minimal/no advantage for IV antibiotics. Levofloxacin is ~99% bioavailable and PO TMP/SMX is used to treat CUSHION GUM APPLICATOR infections (e.g. CUSHION GUM APPLICATOR Nocardia, CUSHION GUM APPLICATOR Toxoplasmosis). The risks of IV/OPAT therapy far outweighs the minimal benefit. Recommendations Can discharge on the following PO regimen. Counseled on avoiding dairy/Ca/MVI when taking levofloxacin. PO levofloxacin 750mg q24 PO Bactrim DS 2x tablets q12 At least 6x weeks from OR: 12/13/24-01/24/25 While on antibiotics will need to f/w PCP for routine monitoring labs, e.g. q2 week CBC w/ diff, CMP, ESR, CRP. Recommend to also check Qtc q2-3 weeks with PCP while on FQ therapy. Will need ID follow-up near end of therapy. We will call her for appointment. If she does not receive a call she should call our office at [phone] Consider suppression upon completion of induction therapy given new titanium plate was placed in the OR. D/w NSGY team. Surgical ID will sign off. Markus Romero MD PhD Director Of Student [facility] Infectious Diseases This patient has a complex infectious disease issue. Management decisions reflecting the added complexity (eg changes in antimicrobial therapy, antimicrobial dosing, or decisions regarding duration of therapy) are reflected in today's documentation. * Art Sanchez MD - 12/16/2024 5:26 AM CDT NEUROSURGERY PROGRESS NOTE: Date: 12/16/24 Patients Name: Saar Arshad Admit Date: 12/13/2024 Admitting Provider: Chauncey Beth MD : 1990 Service: Neurosurgery Trauma Team Age/Sex: 34 y.o. female SUBJECTIVE: No neuro events. OBJECTIVE: Vitals: Vitals: 12/16/24 0010 12/16/24 0415 12/16/24 0415 12/16/24414 BP: 118/78 Pulse: 75 81 Resp: 17 16 Temp: 36.7 ?C (98.1 ?F) SpO2: 100% 100% I/O: Intake/Output Summary (Last 24 hours) at 12/16/2024 0526Last data filed at 12/15/2024 2200 Gross per 24 hour Intake 700 ml Output -- Net 700 ml PHYSICAL EXAM: Physical Exam: Eyes:Pupils: Pupils are equal, round, and reactive to light. Neurological:Mental Status: She is alert. GCS: GCS eye subscore is 4. GCS verbal subscore is 5. GCS motor subscore is 6. LABS/IMAGING:Labs: UA WBC Date Value Ref Range Status 12/06/2024 <1 0 - 5 /HPF Final HgbDate Value Ref Range Status 12/15/2024 7.7 (L) 10.8 - 14.8 g/dL Final POC A Hct (calc)Date Value Ref Range Status 12/13/2024 27.0 (L) 34.1 - 44.9 % Final HctDate Value Ref Range Status 12/15/2024 24.0 (L) 33.9 - 45.4 % Final Plt CountDate Value Ref Range Status 12/15/2024 158 (L) 191 - 422 10*3/uL Final POC A NaDate Value Ref Range Status 12/13/2024 132 (L) 135 - 145 mEq/L Final Sodium LvlDate Value Ref Range Status 12/15/2024 142 136 - 145 mEq/L Final POC A KDate Value Ref Range Status 12/13/2024 4.7 3.5 - 5.1 mEq/L Final Potassium LvlDate Value Ref Range Status 12/15/2024 3.6 3.4 - 4.5 mEq/L Final Creatinine LvlDate Value Ref Range Status 12/15/2024 0.52 (L) 0.55 - 1.02 mg/dL Final Prothrombin Time (PT)Date Value Ref Range Status 12/14/2024 14.7 12 - 14.7 Seconds Final PTTDate Value Ref Range Status 12/14/2024 31.6 22.9 - 35.8 Seconds Final Activated Clotting Time (TEG) RapidDate Value Ref Range Status 05/17/2024 113 86 - 118 sec Final Radiology Imaging Reviewed: - I have personally reviewed all pertinent NSGY imaging studies and agree with the findings under "impression" ASSESSMENT AND PLAN:Active Problems: Patient Active Problem List Diagnosis ADHD Simple obesity Subdural hematoma (HCC) Skull fracture (CMS/HCC) (HCC) Other acquired deformity of head Sara Arshad is a 34 y.o. female with past medical history of right a SDH SP R DHC (SB, 05/17/2024) and R CP (RK, 07/19/2024), ADHD who presents on 12/06/2024 for mechanical fall. CTH shows right a SDH, temporal contusion, comminuted fracture of cranioplasty especially in temporal portion . Notably there is pneumocephalus surrounding bone, CP site with laceration behind ear and near root of zygoma. Patient reports tripping over her dog and hitting head on corner of table. Patients endorses headache. Patient denies nausea, vomiting, dizziness, or new weakness. Patient had previous acute SDH on right side and 05/17/2024 that required decompressive hemicraniectomy. Cranioplasty on right side was performed 07/19/2024. Patient has been doing well since that time. Blood thinner use includes none. NSGY consulted for manangement of SDH, tSAH, and Skull Fracture. Impression (I have reviewed all pertinent neurosurgical imaging and agree with the findings below) : - Right upper skull fracture involving cranioplasty, a SDH, contusion - 05/17/2024 R a SDH SP R DHC SP - 07/19/2024 right cranioplasty, evacuation of subdural hygroma RK -12/13/2024 craniectomy/cranioplasty I have seen and examined the patient. The patient is neurologically unchanged with postop changes on imaging. The cultures are negative. She is appropriate for discharge when we have final recs for ID. No additional neurosurgical interventions are indicated at this time, but we will continue to follow the neurological exam. Please call [phone] with questions. Art Sanchez MD * Echo Blake PharmD - 12/15/2024 12:33 PM CDT Clinician Notes: Vancomycin Dosing and Monitoring Protocol - Follow-Up Note Consulting Provider: Yelena Blair NP Indication for Vancomycin: CUSHION GUM APPLICATOR Infection/Epidural Abscess AUC Goal: 500 - 600 mg h/L Vancomycin Start Date: 12/13/24 Duration: TBD pending ID consult recommendations Plan: continue vancomycin 1500 mg every 12 hours Next level: between 12/17/24 - 12/19/24 (not ordered yet) MRSA PCR: Not Indicated Thank you for allowing us to participate in the care of this patient. We will continue to monitor and adjust vancomycin therapy as needed. Recommended Dose: 1500 mg IV over 1.5 hours every 12 hours for 2 days Next Dose At: 23:55 on Dec 15 2024 Dosing Interval: 12 hours Infusion Length: 1.5 hours Dose Valid For: 2 days only Dose Recommendation Method: Clinician-selected target (Individualized model) Target Outcome: AUC24: 500 mcg.h/mL Predicted Outcome: AUC24: 524.55 mcg.h/mL Predicted Peak: 32.1 mcg/mL Predicted Trough: 13.8 mcg/mL Predicted AUC24: 524.6 mcg.h/mL Predicted AUC12: 262.3 mcg.h/mL Most Recent Dose: 1500 mg over 3 hours at 11:55 on Dec 15 2024 Most Recent SCr: 0.52 mg/dL at 04:25 on Dec 15 2024 Most Recent Blood Concentration: 20.7 mcg/mL at 00:13 on Dec 14 2024 Peak: 28.8 mcg/mL Trough: 14 mcg/mL AUC24: 496 mcg.h/mL AUC12: 248 mcg.h/mL * Chauncey Beth MD - 12/15/2024 8:29 AM CDT Neurocritical Care Progress Note History Of Present Illness Sara Garett Arshad, 34 y.o. female with PMH of prior TBI s/p R DHC (05/17/24), R cranioplasty (07/19/24), and ADHD who presented on 12/06/24 after mechanical fall and found to have acute R SDH, R temporal lobe contusion, and right-sided open depressed skull fracture of the previous cranioplasty. She was discharged on 12/08 to await custom titanium implant creation and completed 7-day course of Bactrim and Levaquin, and has returned today for elective R craniectomy, washout, and R cranioplasty w/ titanium implant. Admitted to NVICU post-op. Interval Events: 12/14: c/o pain this morning, remains neurologically intact 12/15: reports pain better controlled today. Pending final cx/ID recs Past Medical History has a past medical history of ADHD, History of transfusion (05/2024), Injury, Skull fracture (CMS/HCC) ([facility]), and Traumatic subdural hemorrhage. Surgical History has a past surgical history that includes Other surgical history; Craniotomy (05/2024); and Other surgical history (Right, 07/2024). Family History No family history on file. Social History Social History Tobacco Use Smoking status: Never Smokeless tobacco: Never Vaping Use Vaping status: Every Day Substances: Nicotine Substance Use Topics Alcohol use: Not Currently Drug use: Never Allergies Vancomycin Home Medications Medications Prior to Admission Medication Sig Dispense Refill Last Dose/Taking amphetamine-dextroamphetamine XR (Adderall XR) 5 MG 24 hr capsule Take 10 mg by mouth every morning. Do not crush or chew. 12/05/2024 ascorbic acid (vitamin C) 500 MG tablet Take 500 mg by mouth 1 time each day. 12/12/2024 citalopram (CeleXA) 10 MG tablet Take 10 mg by mouth 1 time each day. 12/13/2024 at 6:00 AM levETIRAcetam (Keppra) 500 MG tablet Take 1 tablet by mouth in the morning and 1 tablet in the evening. Do all this for 7 days. 14 tablet 0 12/13/2024 at 6:00 AM [] levoFLOXacin (Levaquin) 750 MG tablet Take 1 tablet by mouth 1 time each day for 7 days. 7 tablet 0 12/13/2024 at 6:00 AM Multiple Vitamin (multivitamin) tablet Take 1 tablet by mouth 1 time each day. 12/12/2024 norethindrone-ethinyl estradiol (Junel FE 06/03) 1-20 MG-MCG tablet Take 1 tablet by mouth 1 time each day. 12/12/2024 [] sulfamethoxazole-trimethoprim (Bactrim DS) 800-160 MG per tablet Take 2 tablets by mouth in the morning and 2 tablets in the evening. Do all this for 7 days. 28 tablet 0 12/13/2024 at 6:00 AM ASSESSMENT AND PLAN 34 y.o. female with PMH of prior TBI s/p R DHC (05/17/24), R cranioplasty (07/19/24), and ADHD who presented on 12/06/24 after mechanical fall and found to have acute R SDH, R temporal lobe contusion, and right-sided open depressed skull fracture of the previous cranioplasty. S/p R craniectomy, washout, and R cranioplasty w/ titanium implant. NEUROLOGIC Acute right-sided open depressed skull fracture of previous cranioplasty on admission Acute R SDH on admission Acute R temporal contusion on admission Pneumocephalus on admission Prior TBI s/p R DHC (05/17/24) Prior R cranioplasty (07/19/24) ADHD Neuro Exam: MS: AAO x4, following commands, speech fluent, no dysarthria CN: pupils equal/reactive, EOMI, VFF, face symmetric Motor: No drift, 5/5 strength throughout Sensory: intact to light touch throughout Gait: deferred s/p R craniectomy, washout, and R cranioplasty w/ titanium implant (12/13/2024) MARILU drain x1 removed 12/14 initial CTH on 12/06 revealed acute R SDH, R temporal lobe contusion, and right-sided open depressed skull fracture of the previous cranioplasty Post-op CTH w/ expected post-op changes Keppra 500 mg q12h for sz ppx Continue home citalopram 10 mg daily PRN tylenol, oxycodone for pain Schedule gabapentin, robaxin q8h PT/OT following CARDIOVASCULAR CV Exam: RRR Temp: [36.2 ?C (97.1 ?F)-37 ?C (98.6 ?F)] 36.9 ?C (98.5 ?F) Heart Rate: [81-102] 81 Resp: [16-60] 18 BP: (104-122)/(65-75) 118/73 VS Parameters: SBP<150 R radial a-line (12/13/24), removed 12/14 PULMONARY Pulm Exam: CTAB on room air w/ spO2>94% GASTROINTESTINAL GI Exam: soft, non-distended, present bowl sounds Nutrition: Current Order: Adult Diet Regular bowel regimen: senna last 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 Results Component Value Date ALT 9 12/08/2024 AST 13 12/08/2024 Alkaline Phosphatase 59 12/08/2024 Bilirubin Total 0.26 (L) 12/08/2024 RENAL Intake/Output Summary (Last 24 hours) at 12/15/2024 0829 Last data filed at 12/15/2024 0400 Gross per 24 hour Intake 480 ml Output -- Net 480 ml Results from last 7 days Lab Units 12/15/24 0425 12/14/24 0013 12/13/24 1655 12/13/24 1221 12/13/24 1052 POC SODIUM, ARTERIAL mEq/L -- -- -- 132* 132* SODIUM mEq/L 142 138 138 -- -- POC POTASSIUM, ARTERIAL mEq/L -- -- -- 4.7 4.5 POTASSIUM mEq/L 3.6 3.7 4.5 -- -- POC CHLORIDE mEq/L -- -- -- 105 106 CHLORIDE mEq/L 106 103 105 -- -- CO2 mEq/L 25.0 23.7 22.5 -- -- BUN mg/dL <7* <7* <7* -- -- CREATININE mg/dL 0.52* 0.69 0.69 -- -- MAGNESIUM mg/dL -- 1.90 -- -- -- PHOSPHORUS mg/dL -- 2.4 -- -- -- CALCIUM mg/dL 7.8* 7.6* 7.6* -- -- POC IONIZED CALCIUM, ARTERIAL mMol/L -- -- -- 1.09 1.12 POC IONIZED CALCIUM, ARTERIAL (7.4) mmol/L -- -- -- 1.09 1.10 No electrolyte abnormalities No mIVF DC manning 12/14 INFECTIOUS DISEASE Concern for possible wound infection, 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 Temp (24hrs), Av.7 ?C (98 ?F), Min:36.2 ?C (97.1 ?F), Max:37 ?C (98.6 ?F) Results from last 7 days Lab Units 12/15/24 0425 12/14/24 0013 12/13/24 1655 WBC 10*3/uL 5.35 5.36 5.29 ID consulted given open skull fracture, pending final abx recs Intra-op cultures w/ NGTD CUSHION GUM APPLICATOR dosed ceftriaxone (12/13) and vancomycin HEMATOLOGIC Results from last 7 days Lab Units 12/15/24 0425 12/14/24 0013 12/13/24 1655 12/13/24 1339 12/13/24 0611 HEMOGLOBIN g/dL 7.7* 8.0* 8.4* -- 12.1 PLATELETS 10*3/uL 158* 157* 165* -- 200 INR -- 1.13 -- 1.22* 1.14* PTT Seconds -- 31.6 -- 32.9 37.8* DVT ppx: SCDs; sc heparin ENDOCRINE Results from last 7 days Lab Units 12/15/24 0425 12/14/24 0013 12/13/24 1655 GLUCOSE mg/dL 107* 132* 136* BG goal 120-180 low-dose ISS MUSCULOSKELETAL AND INTEGUMENTARY Skin Exam: warm, dry, intact Code Status: Full Code Disposition: [place] with family once medically clear, pending NSGY and [place] clearance [place] [place] ICU Ph #[phone] The patient was seen and examined by me at a separate time from the KUNAL/Fellow/resident. I also reviewed the documentation and agree with the documented findings and plan of care. Additionally, I was directly involved in the management of the patient and provided the substantive portion of this visit, including examining the patient, obtaining history, and medical decision-making. * Saira Plummer MD - 12/15/2024 6:06 AM CDT NEUROSURGERY PROGRESS NOTE: Date: 12/15/24 Patients Name: Sara Arshad Admit Date: 12/13/2024 Admitting Provider: Chauncey Beth MD : 1990 Service: Neurosurgery Trauma Team Age/Sex: 34 y.o. female SUBJECTIVE: The patient is s/p craniectomy/cranioplasty OBJECTIVE: Vitals: Vitals: 12/15/24 0058 12/15/24 0058 12/15/24 0446 12/15/24 0447 BP: 118/73 Pulse: 91 81 Resp: 18 18 Temp: 36.9 ?C (98.5 ?F) SpO2: 98% 96% I/O: Intake/Output Summary (Last 24 hours) at 12/15/2024 0606Last data filed at 12/14/2024 2300 Gross per 24 hour Intake 360 ml Output -- Net 360 ml PHYSICAL EXAM: Physical Exam: Eyes:Pupils: Pupils are equal, round, and reactive to light. Neurological:Mental Status: She is alert. GCS: GCS eye subscore is 4. GCS verbal subscore is 5. GCS motor subscore is 6. Dressing intact LABS/IMAGING:Labs: UA WBC Date Value Ref Range Status 12/06/2024 <1 0 - 5 /HPF Final HgbDate Value Ref Range Status 12/15/2024 7.7 (L) 10.8 - 14.8 g/dL Preliminary POC A Hct (calc)Date Value Ref Range Status 12/13/2024 27.0 (L) 34.1 - 44.9 % Final HctDate Value Ref Range Status 12/15/2024 24.0 (L) 33.9 - 45.4 % Preliminary Plt CountDate Value Ref Range Status 12/15/2024 158 (L) 191 - 422 10*3/uL Preliminary POC A NaDate Value Ref Range Status 12/13/2024 132 (L) 135 - 145 mEq/L Final Sodium LvlDate Value Ref Range Status 12/15/2024 142 136 - 145 mEq/L Final POC A KDate Value Ref Range Status 12/13/2024 4.7 3.5 - 5.1 mEq/L Final Potassium LvlDate Value Ref Range Status 12/15/2024 3.6 3.4 - 4.5 mEq/L Final Creatinine LvlDate Value Ref Range Status 12/15/2024 0.52 (L) 0.55 - 1.02 mg/dL Final Prothrombin Time (PT)Date Value Ref Range Status 12/14/2024 14.7 12 - 14.7 Seconds Final PTTDate Value Ref Range Status 12/14/2024 31.6 22.9 - 35.8 Seconds Final Activated Clotting Time (TEG) RapidDate Value Ref Range Status 05/17/2024 113 86 - 118 sec Final Radiology Imaging Reviewed: - I have personally reviewed all pertinent NSGY imaging studies and agree with the findings under "impression" ASSESSMENT AND PLAN:Active Problems: Patient Active Problem List Diagnosis ADHD Simple obesity Subdural hematoma (HCC) Skull fracture (CMS/HCC) (HCC) Other acquired deformity of head Sara Arshad is a 34 y.o. female with past medical history of right a SDH SP R DHC (SB, 05/17/2024) and R CP (RK, 07/19/2024), ADHD who presents on 12/06/2024 for mechanical fall. CTH shows right a SDH, temporal contusion, comminuted fracture of cranioplasty especially in temporal portion . Notably there is pneumocephalus surrounding bone, CP site with laceration behind ear and near root of zygoma. Patient reports tripping over her dog and hitting head on corner of table. Patients endorses headache. Patient denies nausea, vomiting, dizziness, or new weakness. Patient had previous acute SDH on right side and 05/17/2024 that required decompressive hemicraniectomy. Cranioplasty on right side was performed 07/19/2024. Patient has been doing well since that time. Blood thinner use includes none. NSGY consulted for manangement of SDH, tSAH, and Skull Fracture. Impression (I have reviewed all pertinent neurosurgical imaging and agree with the findings below) : - Right upper skull fracture involving cranioplasty, a SDH, contusion - 05/17/2024 R a SDH SP R DHC SP - 07/19/2024 right cranioplasty, evacuation of subdural hygroma RK -12/13/2024 craniectomy/cranioplasty I have seen and examined the patient. The patient's neurological exam is unchanged. There is no interval cranial imaging. I have reviewed all vitals and labs, which are unremarkable. Intraoperative cultures are no growth to date. We will await final infectious disease recommendations. Patient adequately mobilizing yesterday. Neurosurgery will continue to follow the exam. - Please call [phone] with NSGY questions or concerns Saira Plummer, [facility] Neurological Surgery Cosigned by Art Sanchez MD at 12/15/2024 6:23 AM CDT Associated attestation - Art Sanchez MD - 12/15/2024 6:23 AM CDT I have reviewed the case and imaging. No additional interventions are indicated. We will await ID recs followed by discharge. * Lacho Monteiro, AlexaD - 12/14/2024 11:54 AM CDT Clinician Notes: Vancomycin Dosing and Monitoring Protocol - Follow-Up Note Consulting Physician: Yelena Blair NP Indication for Vancomycin: CUSHION GUM APPLICATOR Infection/Epidural Abscess AUC Goal: 500 - 600 mg h/L Vancomycin Start Date: 12/14/24 Duration: 14 days Plan: Vancomycin 1500 mg every 12 hours Next level 12/19/24 MRSA PCR: Not Indicated Thank you for allowing us to participate in the care of this patient. We will continue to monitor and adjust vancomycin therapy as needed. Recommended Dose: 1500 mg IV over 1.5 hours every 12 hours for 2 days Next Dose At: 23:00 on Dec 14 2024 Dosing Interval: 12 hours Infusion Length: 1.5 hours Dose Valid For: 2 days only Dose Recommendation Method: Clinician-selected target (Individualized model) Target Outcome: AUC24: 500 mcg.h/mL Predicted Outcome: AUC24: 531.76 mcg.h/mL Predicted Peak: 32.4 mcg/mL Predicted Trough: 14.1 mcg/mL Predicted AUC24: 531.8 mcg.h/mL Predicted AUC12: 265.9 mcg.h/mL Most Recent Dose: 1500 mg over 3 hours at 11:03 on Dec 14 2024 Most Recent SCr: 0.69 mg/dL at 00:13 on Dec 14 2024 Most Recent Blood Concentration: 20.7 mcg/mL at 00:13 on Dec 14 2024 Peak: 25.7 mcg/mL Trough: 12.6 mcg/mL AUC24: 436 mcg.h/mL AUC12: 217 mcg.h/mL * Nichol Turner, PT - 12/14/2024 10:05 AM CDT Images from the original note were not included. Physical Therapy Evaluation and Treatment Note Patient Name: Sara Arshad Today's Date: 12/14/2024 Preferred Language: Niuean Assessment & Plan Sara Arshad is a 34 y.o. female presenting for elective right cranioplasty with Dr Sanchez on 12/13/24. Patient with past medical history of right a SDH SP R DHC (SB, 05/17/2024) and R CP (RK, 07/19/2024), ADHD who presented on 12/06/2024 after a mechanical fall with right aSDH, temporal contusion, comminuted fracture of cranioplasty especially in temporal portion . Notably there is pneumocephalus surrounding bone, CP site with laceration behind ear and near root of zygoma. Patient reports tripping over her dog and hitting head on corner of table. Patients endorses headache. Patient denies nausea, vomiting, dizziness, or new weakness. Patient had previous acute SDH on right side and 05/17/2024 that required decompressive hemicraniectomy. Cranioplasty on right side was performed 07/19/2024. Patient has been doing well since that time. Past Medical History She has a past medical history of ADHD, History of transfusion (05/2024), Injury, Skull fracture (CMS/HCC) (HCC), and Traumatic subdural hemorrhage. Surgical HistoryShe has a past surgical history that includes Other surgical history; Craniotomy (05/2024); and Other surgical history (Right, 07/2024). Family HistoryFamily History No family history on file. Social History She reports that she has never smoked. She has never used smokeless tobacco. She reports that she does not currently use alcohol. She reports that she does not use drugs. AllergiesVancomycin MedicationsPrescriptions Prior to Admission No medications prior to admission. Review of [id number] point review of systems negative except per HPI and EPIC documentation Physical Exam:Eyes open Fcx4 Alert and oriented x3 Left pupil 3mm and brisk Right pupil 3 mm and brisk EOMI RUE full strengthRLE full strength LUE full strength LLE full strength No drift Incision over right ear, root of zygomaRemaining incision from hemicraniectomy intact, well-healed Last Recorded VitalsHeight 1.549 m (5' 1"), weight 74.8 kg (165 lb). Body mass index is 31.18 kg/m?. Relevant ResultsPreop labs Assessment & PlanKristin Gene Matt is a 34 y.o. female with past medical history of right a SDH SP R DHC (SB, 05/17/2024) and R CP (RK, 07/19/2024), ADHD who presents on 12/06/2024 for mechanical fall. CTH shows right a SDH, temporal contusion, comminuted fracture of cranioplasty especially in temporal portion . Notably there is pneumocephalus surrounding bone, CP site with laceration behind ear and near root of zygoma. Patient reports tripping over her dog and hitting head on corner of table. Patients endorses headache. Patient denies nausea, vomiting, dizziness, or new weakness. Patient had previous acute SDH on right side and 05/17/2024 that required decompressive hemicraniectomy. Cranioplasty on right side was performed 07/19/2024. Patient has been doing well since that time. Blood thinner use includes none. NSGY consulted for manangement of SDH, tSAH, and Skull Fracture. Impression (I have reviewed all pertinent neurosurgical imaging and agree with the findings below) : - Right upper skull fracture involving cranioplasty, a SDH, contusion - 05/17/2024 R a SDH SP R C SP - 07/19/2024 right cranioplasty, evacuation of subdural hygroma -12/13/2024 Right-sided craniectomy, wound washout, and titanium implant cranioplasty, greater than 5 cm. Assessment:PT Assessment: This is a pleasant motivated patient presented to PT with safe independent functional mobility. We discussed her fall and the imortance of being cautious/vigilant re: not falling. We discussed the importance of good safety judgement. She did not appear impulsive. She was casual when discussing her recent fall, but seemed to understand the potential risks of another fall. She was able to state she understands the importance of not falling. No acute skilled PT needs. PT will sign off now. Prognosis: Good Evaluation/Treatment Tolerance: Patient tolerated treatment well Medical Staff Made Aware: Yes Strengths: Attitude of self, Coping skills, Living arrangement secure, Support and attitude of living partners Plan:PT Plan: No skilled PT PT Recommended Transfer Status: Independent PT- Okay to Discharge from Therapy: Yes Subjective Current Problem:s/p Right-sided craniectomy, wound washout, and titaniumimplant cranioplasty, greater than 5 cm. 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) Objective Precautions:UE Weight Bearing Status: FWB LE Weight Bearing Status: FWB Medical Precautions: Standard, fall Cognition:Overall Cognitive Status: Within Functional Limits Behavior/Cognition: Alert, Cooperative, Pleasant mood Orientation Level: Oriented X4 General Assessments:Activity Tolerance Activity Tolerance Endurance: Tolerates 30 min exercise with multiple rests Sitting Balance: Moves/returns truncal midpoint more than 2 inches in all planes Early Mobility/Exercise Safety Screen: Proceed with mobilization - No exclusion criteria met Sensation SensationLight Touch: RLE Intact, LLE Intact, RUE Intact, LUE Intact Proprioception ProprioceptionProprioception: RLE Intact, LLE Intact Coordination CoordinationMovements are Fluid and Coordinated: Yes Finger to Nose: Left intact, Right intact Balance- SittingStatic Sitting-Balance Support: Feet supported Level of Assistance: Independent Balance- StandingStatic Standing-Balance Support: No upper extremity supported Static Standing-Level of Assistance: Independent Dynamic Standing-Balance Support: No upper extremity supported Dynamic Standing-Comments: independent Functional Assessments: Bed Mobility Bed Mobility 1:Level of Assistance 1: Independent Bed Mobility To/From: Roll left/right, Supine to sit on EOB, Sitting EOB to supine Transfers Transfers 1:Level of Assistance 1: Independent Transfer To/From: Bed, Chair, [id number] Assistive Devices And Adaptive Equipments: No device GaitGait Training Activity 1: Distance (enter in feet): 400 feet Gait Training Activity 1: Indoor surface Level of Assistance 1: Independent Extremity Assessments:Right Lower Extremity RLE Assessment RLE Assessment: Within Functional Limits Left Lower Extremity LLE AssessmentLLE Assessment: Within Functional Limits Overall Lower Extremity/Trunk ToneOverall Lower Extremity/Trunk Tone Left Lower Extremity: Normal Right Lower Extremity: Normal Trunk: Normal Right Upper Extremity RUE AssessmentRUE Assessment: Within Functional Limits Left Upper Extremity LUE AssessmentLUE Assessment: Within Functional Limits Upper Extremity ToneUpper Extremity Tone Left Upper Extremity: Normal Right Upper Extremity: Normal Activity Tolerance:Endurance: Tolerates 30 min exercise with multiple rests Sitting Balance: Moves/returns truncal midpoint more than 2 inches in all planes Early Mobility/Exercise Safety Screen: Proceed with mobilization - No exclusion criteria met CognitionOverall Cognitive Status: Within Functional Limits Behavior/Cognition: Alert, Cooperative, Pleasant mood Orientation Level: Oriented X4 TreatmentTherapeutic activity: Therapeutic Activity Therapeutic Activity Time Entry: 20 Chart reviewed. PRC with pt and nurse for POC. Eval complete Pt practiced and demo'd independence with all functional mobility on level surfaces (still has an art line), BLE active ex, balance and coordination ex. Returned to a chair at the bedside. CB, phone and tray available. Vitals stable Nurse aware of pt status AM-PAC Basic Mobility:Turning in bed without bedrails: None Lying on back to sitting on edge of flat bed: None Bed to chair: None Standing up from chair: None Walk in room: None Climbing 3-5 stairs: None Mobility Inpatient Raw Score: 24 JH-HLM Goal: 7 Mobility: Highest Level of Mobility Performed (JH-HLM)Walked 250 feet or more (i.e. several laps on unit) Patient Education:Education Documentation Other Physical Therapy Education Topics, taught by Nichol Turner PT at 12/14/2024 6:33 PM. Learner: Patient Readiness: Acceptance Method: Explanation, Demonstration Response: Verbalizes Understanding, Teach Back Precautions, taught by Nichol Turner PT at 12/14/2024 6:33 PM.Learner: Patient Readiness: Acceptance Method: Explanation, Demonstration Response: Verbalizes Understanding, Teach Back Pain Management, taught by Nichol Turner PT at 12/14/2024 6:33 PM.Learner: Patient Readiness: Acceptance Method: Explanation, Demonstration Response: Verbalizes Understanding, Teach Back Home Safety, taught by Nichol Turner PT at 12/14/2024 6:33 PM.Learner: Patient Readiness: Acceptance Method: Explanation, Demonstration Response: Verbalizes Understanding, Teach Back Fall Prevention, taught by Nichol Turner PT at 12/14/2024 6:33 PM.Learner: Patient Readiness: Acceptance Method: Explanation, Demonstration Response: Verbalizes Understanding, Teach Back Mobility, taught by Nichol Turner PT at 12/14/2024 6:33 PM.Learner: Patient Readiness: Acceptance Method: Explanation, Demonstration Response: Verbalizes Understanding, Teach Back Physical Therapy Plan of Care, taught by Nichol Turner PT at 56:33 PM. Learner: Patient Readiness: Acceptance Method: Explanation, Demonstration Response: Verbalizes Understanding, Teach Back Education CommentsNo comments found. Treatment Note: If this is the last documented treatment, then it will signify discharge from acute care prior to discharge from the therapy service and will serve as the discharge summary. Nichol Turner PT * Iveth Pierson, OT - 12/14/2024 9:32 AM CDT Evaluation and Treatment Patient Name: Sara Arshad Today's Date: 12/14/2024 Preferred Language: Niuean Assessment & Plan Assessment: Pt is presenting to [facility] after a mechanical fall on 12/06. Pt found to have a R SDH, R temporal lobe contusion, R skull fx. Pt is now s/p R side craniectomy and R cranioplasty on 12/13. Pt reports she lives at home with her spouse and son. 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 This session, pt completed bed mobility, sitting balance, sit to stands, and ambulation with SPV/ IND. Pt is pushing her own IV pole and demos toileting and self care activities at the sink with IND. Pt returned to the bed with IND. Pt is presenting close to her functional baseline and does not require acute OT services. OT WILL SIGN OFF. Prognosis: Excellent Evaluation/Treatment Tolerance: Patient tolerated treatment well Medical Staff Made Aware: Yes Plan: Treatment Plan/Goals Established with Patient/Caregiver: Yes OT Planned Treatments: Discharge/Discontinue OT treatment OT Plan: No skilled OT No Skilled OT: Independent with ADLs OT - OK to Discharge: Yes Subjective Pt agreeable to therapy session Current Problem: Sara Arshad, 34 y.o. female with PMH of prior TBI s/p R DHC (05/17/24), R cranioplasty (07/19/24), and ADHD who presented on 12/06/24 after mechanical fall and found to have acute R SDH, R temporal lobe contusion, and right-sided open depressed skull fracture of the previous cranioplasty. She was discharged on 12/08 to await custom titanium implant creation and completed 7-day course of Bactrim and Levaquin, and has returned today for elective R craniectomy, washout, and R cranioplasty w/ titanium implant. Admitted to [facility]ICU post-op. Interval Events: 12/14: c/o pain this morning, remains neurologically intact Pain: Pain Assessment: DVPRS (12/14/2024 11:45 AM) Pain Type: Acute pain (12/14/2024 9:32 AM) Pain Location: Head (12/14/2024 9:32 AM) Pain Orientation: Right (12/13/2024 4:53 PM) Pain Descriptors: Headache (12/13/2024 4:53 PM) Pain Frequency: Constant/continuous (12/13/2024 4:53 PM) Objective General Visit Information: Subjective: I just have to use the bathroom Precautions: UE Weight Bearing Status: FWB LE Weight Bearing Status: FWB Medical Precautions: Standard; Fall Cognition: Overall Cognitive Status: Within Functional Limits Behavior/Cognition: Alert, Cooperative Orientation Level: Oriented X4 Home Living: Type of Home: House Admitted From: Home Lives With: Spouse, Family Home Adaptive Equipment: None Home Living Comments: IND at baseline Home Layout: Two level Home Access: Level entry Bathroom Shower/Tub: Walk-in shower Bathroom Toilet: Standard Prior Function: Level of Rex: Household ambulation (IND at baseline) Receives Help From: Family ADL Assistance: Independent Homemaking Assistance: Independent 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[employer]) Self Care (ADL): Self Care/Home Management (ADLs) Time Entry: 13 Eating Assistance: Independent Grooming Assistance: Independent Bathing Assistance: Independent UE Dressing Assistance: Independent LE Dressing Assistance: Independent Toileting Assistance: Independent Mobility/Transfers: Bed Mobility Bed Mobility Bed Mobility: Yes Bed Mobility 1 Level of Assistance 1: Independent Bed Mobility To/From: Supine to sit on EOB Bed Mobility 2 Level of Assistance 2: Independent Bed Mobility To/From: Sitting EOB to supine Transfer Transfers Transfer: Yes Transfer 1 Level of Assistance 1: Independent Transfer To/From: Sve-jk-Ngysn/Fzoqm-zq-Ouo Assistive Devices And Adaptive Equipments: No device Transfers 2 Technique 2: Via walking Level of Assistance 2: Independent Transfer To/From: Bed, Toilet Assistive Devices And Adaptive Equipments: No device OT General Assessments: Activity Tolerance Activity Tolerance Endurance: Tolerates 10 - 20 min exercise with multiple rests Sitting Balance: Moves/returns truncal midpoint 1-2 inches in multiple planes Vision BasicVision - Basic Assessment Current Vision: No visual deficits Vision ComplexVision - Complex Assessment Ocular Range of Motion: Within Functional Limits Sensation Sensation Light Touch: RUE Intact, LUE Intact Deep Pressure: RUE Intact, LUE Intact Proprioception Proprioception Proprioception: RUE Intact, LUE Intact Perception Perception Inattention/Neglect: Appears intact Initiation: Appears intact Motor Planning: Appears intact Perseveration: Not present Coordination Coordination Movements are Fluid and Coordinated: Yes Hand Function Hand Function Gross Grasp: Functional Coordination: Functional Balance- Sitting Level of Assistance: Independent Balance- Standing Static Standing-Level of Assistance: Independent Dynamic Standing-Balance: Forward lean Dynamic Standing-Comments: IND Extremity Assessments: Right Upper Extremity RUE Assessment RUE Assessment: Within Functional Limits Left Upper Extremity LUE AssessmentLUE Assessment: Within Functional Limits Treatment:Self-Care: Self Care/Home Management (ADLs) Time Entry: 13 Eating Assistance: Independent Grooming Assistance: Independent Bathing Assistance: Independent UE Dressing Assistance: Independent LE Dressing Assistance: Independent Toileting Assistance: Independent Bed Mobility:Bed Mobility Bed Mobility: Yes Bed Mobility 1 Level of Assistance 1: Independent Bed Mobility To/From: Supine to sit on EOB Bed Mobility 2 Level of Assistance 2: Independent Bed Mobility To/From: Sitting EOB to supine Transfers:Transfers Transfer: Yes Transfer 1 Level of Assistance 1: Independent Transfer To/From: Pwt-hu-Kfalf/Fwlwq-vy-Nsg Assistive Devices And Adaptive Equipments: No device Transfers 2 Technique 2: Via walking Level of Assistance 2: Independent Transfer To/From: Bed, Toilet Assistive Devices And Adaptive Equipments: No device AM-PAC Daily Activity:Putting on and taking off regular lower body clothing: None Bathing (including washing, rinsing, drying): None Toileting, which includes using toilet, bedpan or urinal: None Putting on and taking off regular upper body clothing: None Taking care of personal grooming such as brushing teeth: None Eating Meals: None AM-PAC Daily Activity Raw Score: 24 Patient Education: Education Documentation ADL Training, taught by Iveth Pierson OT at 12/14/2024 1:53 PM. Learner: Patient Readiness: Acceptance Method: Explanation Response: Verbalizes Understanding Occupational Therapy Plan of Care, taught by Iveth Pierson OT at 12/14/2024 1:53 PM. Learner: Patient Readiness: Acceptance Method: Explanation Response: Verbalizes Understanding Education CommentsNo comments found. Goals: N/A Treatment Note: If this is the last documented treatment, then it will signify discharge from acute care prior to discharge from the therapy service and will serve as the discharge summary. Iveth Pierson OT * Ifeoma Owens MD - 12/14/2024 7:39 AM CDT Neurocritical Care Progress Note History Of Present Illness Sara Arshad, 34 y.o. female with PMH of prior TBI s/p R DHC (05/17/24), R cranioplasty (07/19/24), and ADHD who presented on 12/06/24 after mechanical fall and found to have acute R SDH, R temporal lobe contusion, and right-sided open depressed skull fracture of the previous cranioplasty. She was discharged on 12/08 to await custom titanium implant creation and completed 7-day course of Bactrim and Levaquin, and has returned today for elective R craniectomy, washout, and R cranioplasty w/ titanium implant. Admitted to NVICU post-op. Interval Events: 12/14: c/o pain this morning, remains neurologically intact Past Medical History has a past medical history of ADHD, History of transfusion (05/2024), Injury, Skull fracture (CMS/HCC) ([facility]), and Traumatic subdural hemorrhage. Surgical History has a past surgical history that includes Other surgical history; Craniotomy (05/2024); and Other surgical history (Right, 07/2024). Family History No family history on file. Social History Social History Tobacco Use Smoking status: Never Smokeless tobacco: Never Vaping Use Vaping status: Every Day Substances: Nicotine Substance Use Topics Alcohol use: Not Currently Drug use: Never Allergies Vancomycin Home Medications Medications Prior to Admission Medication Sig Dispense Refill Last Dose/Taking amphetamine-dextroamphetamine XR (Adderall XR) 5 MG 24 hr capsule Take 10 mg by mouth every morning. Do not crush or chew. 12/05/2024 ascorbic acid (vitamin C) 500 MG tablet Take 500 mg by mouth 1 time each day. 12/12/2024 citalopram (CeleXA) 10 MG tablet Take 10 mg by mouth 1 time each day. 12/13/2024 at 6:00 AM levETIRAcetam (Keppra) 500 MG tablet Take 1 tablet by mouth in the morning and 1 tablet in the evening. Do all this for 7 days. 14 tablet 0 12/13/2024 at 6:00 AM levoFLOXacin (Levaquin) 750 MG tablet Take 1 tablet by mouth 1 time each day for 7 days. 7 tablet 0 12/13/2024 at 6:00 AM Multiple Vitamin (multivitamin) tablet Take 1 tablet by mouth 1 time each day. 12/12/2024 norethindrone-ethinyl estradiol (Junel FE 06/03) 1-20 MG-MCG tablet Take 1 tablet by mouth 1 time each day. 12/12/2024 sulfamethoxazole-trimethoprim (Bactrim DS) 800-160 MG per tablet Take 2 tablets by mouth in the morning and 2 tablets in the evening. Do all this for 7 days. 28 tablet 0 12/13/2024 at 6:00 AM ASSESSMENT AND PLAN 34 y.o. female with PMH of prior TBI s/p R DHC (05/17/24), R cranioplasty (07/19/24), and ADHD who presented on 12/06/24 after mechanical fall and found to have acute R SDH, R temporal lobe contusion, and right-sided open depressed skull fracture of the previous cranioplasty. S/p R craniectomy, washout, and R cranioplasty w/ titanium implant. NEUROLOGIC Acute right-sided open depressed skull fracture of previous cranioplasty on admission Acute R SDH on admission Acute R temporal contusion on admission Pneumocephalus on admission Prior TBI s/p R DHC (05/17/24) Prior R cranioplasty (07/19/24) ADHD Neuro Exam: MS: AAO x4, following commands, speech fluent, no dysarthria CN: pupils equal/reactive, EOMI, VFF, face symmetric Motor: No drift, 5/5 strength throughout Sensory: intact to light touch throughout Gait: deferred s/p R craniectomy, washout, and R cranioplasty w/ titanium implant (12/13/2024) MARILU drain x1, 85ml/24hr initial CTH on 12/06 revealed acute R SDH, R temporal lobe contusion, and right-sided open depressed skull fracture of the previous cranioplasty Post-op CTH w/ expected post-op changes Keppra 500 mg q12h for sz ppx Continue home citalopram 10 mg daily PRN tylenol, oxycodone for pain PT/OT following CARDIOVASCULAR CV Exam: RRR Temp: [35.8 ?C (96.4 ?F)-36.7 ?C (98.1 ?F)] 36.4 ?C (97.6 ?F) Heart Rate: [63-106] 82 Resp: [9-48] 16 BP: (95-113)/(50-65) 101/59 Arterial Line BP 1: (93-123)/(43-73) 120/66 VS Parameters: SBP<150 R radial a-line (12/13/24), remove PULMONARY Pulm Exam: CTAB on room air w/ spO2>94% GASTROINTESTINAL GI Exam: soft, non-distended, present bowl sounds Nutrition: Current Order: Adult Diet Regular bowel regimen: docusate, senna last 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 Results Component Value Date ALT 9 12/08/2024 AST 13 12/08/2024 Alkaline Phosphatase 59 12/08/2024 Bilirubin Total 0.26 (L) 12/08/2024 RENAL Intake/Output Summary (Last 24 hours) at 12/14/2024 0739 Last data filed at 12/14/2024 0500 Gross per 24 hour Intake 3834.5 ml Output 2810 ml Net 1024.5 ml Results from last 7 days Lab Units 12/14/24 0013 12/13/24 1655 12/13/24 1221 12/13/24 1052 12/13/24 0921 12/13/24 0611 POC SODIUM, ARTERIAL mEq/L -- -- 132* 132* < > -- SODIUM mEq/L 138 138 -- -- -- 136 POC POTASSIUM, ARTERIAL mEq/L -- -- 4.7 4.5 < > -- POTASSIUM mEq/L 3.7 4.5 -- -- -- 4.0 POC CHLORIDE mEq/L -- -- 105 106 < > -- CHLORIDE mEq/L 103 105 -- -- -- 103 CO2 mEq/L 23.7 22.5 -- -- -- 23.4 BUN mg/dL <7* <7* -- -- -- 7* CREATININE mg/dL 0.69 0.69 -- -- -- 0.80 MAGNESIUM mg/dL 1.90 -- -- -- -- -- PHOSPHORUS mg/dL 2.4 -- -- -- -- -- CALCIUM mg/dL 7.6* 7.6* -- -- -- 8.7 POC IONIZED CALCIUM, ARTERIAL mMol/L -- -- 1.09 1.12 < > -- POC IONIZED CALCIUM, ARTERIAL (7.4) mmol/L -- -- 1.09 1.10 < > -- < > = values in this interval not displayed. ICU electrolyte replacement protocol DC IVF DC manning INFECTIOUS DISEASE Concern for possible wound infection, 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 Temp (24hrs), Av.3 ?C (97.4 ?F), Min:35.8 ?C (96.4 ?F), Max:36.7 ?C (98.1 ?F) Results from last 7 days Lab Units 12/14/24 0013 12/13/24 1655 12/13/24 0611 WBC 10*3/uL 5.36 5.29 4.41 ID consulted given open skull fracture Intra-op cultures w/ NGTD CUSHION GUM APPLICATOR dosed ceftriaxone (12/13) HEMATOLOGIC Results from last 7 days Lab Units 12/14/24 0013 12/13/24 1655 12/13/24 1339 12/13/24 0611 HEMOGLOBIN g/dL 8.0* 8.4* -- 12.1 PLATELETS 10*3/uL 157* 165* -- 200 INR 1.13 -- 1.22* 1.14* PTT Seconds 31.6 -- 32.9 37.8* DVT ppx: SCDs; start sc heparin 24hr post-op ENDOCRINE Results from last 7 days Lab Units 12/14/24 0013 12/13/24 1655 12/13/24 1602 POC GLUCOSE mg/dL -- -- 154* GLUCOSE mg/dL 132* 136* -- BG goal 120-180 low-dose ISS MUSCULOSKELETAL AND INTEGUMENTARY Skin Exam: warm, dry, intact Code Status: Full Code Disposition: transfer to floor today [facility] Neurocritical Care NvICU Team ICU Ph #[phone] The patient was seen and examined by me at a separate time from the KUNAL. I also reviewed the documentation and agree with the documented findings and plan of care. Additionally, I was directly involved in the management of the patient and provided the substantive portion of this visit, including examining the patient, obtaining history, and medical decision-making. * Art Sanchez MD - 12/14/2024 7:22 AM CDT NEUROSURGERY PROGRESS NOTE: Date: 12/14/24 Patients Name: Sara Arshad Admit Date: 12/13/2024 Admitting Provider: Art Sanchez MD : 1990 Service: Neurosurgery Trauma Team Age/Sex: 34 y.o. female SUBJECTIVE: The patient is s/p craniectomy/cranioplasty OBJECTIVE: Vitals: Vitals: 12/14/24 0400 12/14/24 0430 12/14/24 0500 12/14/24 0530 BP: (!) 100/58 (!) 106/59 110/63 (!) 101/59 Pulse: 82 79 86 82 Resp: 22 14 16 16 Temp: 36.4 ?C (97.6 ?F) SpO2: 99% 98% 98% 100% I/O: Intake/Output Summary (Last 24 hours) at 12/14/2024 0723Last data filed at 12/14/2024 0500 Gross per 24 hour Intake 3834.5 ml Output 2810 ml Net 1024.5 ml PHYSICAL EXAM: Physical Exam: Eyes:Pupils: Pupils are equal, round, and reactive to light. Neurological:Mental Status: She is alert. GCS: GCS eye subscore is 4. GCS verbal subscore is 5. GCS motor subscore is 6. Dressing intact LABS/IMAGING:Labs: UA WBC Date Value Ref Range Status 12/06/2024 <1 0 - 5 /HPF Final HgbDate Value Ref Range Status 12/14/2024 8.0 (L) 10.8 - 14.8 g/dL Final POC A Hct (calc)Date Value Ref Range Status 12/13/2024 27.0 (L) 34.1 - 44.9 % Final HctDate Value Ref Range Status 12/14/2024 24.4 (L) 33.9 - 45.4 % Final Plt CountDate Value Ref Range Status 12/14/2024 157 (L) 191 - 422 10*3/uL Final POC A NaDate Value Ref Range Status 12/13/2024 132 (L) 135 - 145 mEq/L Final Sodium LvlDate Value Ref Range Status 12/14/2024 138 136 - 145 mEq/L Final POC A KDate Value Ref Range Status 12/13/2024 4.7 3.5 - 5.1 mEq/L Final Potassium LvlDate Value Ref Range Status 12/14/2024 3.7 3.4 - 4.5 mEq/L Final Creatinine LvlDate Value Ref Range Status 12/14/2024 0.69 0.55 - 1.02 mg/dL Final Prothrombin Time (PT)Date Value Ref Range Status 12/14/2024 14.7 12 - 14.7 Seconds Final PTTDate Value Ref Range Status 12/14/2024 31.6 22.9 - 35.8 Seconds Final Activated Clotting Time (TEG) RapidDate Value Ref Range Status 05/17/2024 113 86 - 118 sec Final Radiology Imaging Reviewed: - I have personally reviewed all pertinent NSGY imaging studies and agree with the findings under "impression" ASSESSMENT AND PLAN:Active Problems: Patient Active Problem List Diagnosis ADHD Simple obesity Subdural hematoma (HCC) Skull fracture (CMS/HCC) (HCC) Other acquired deformity of head Sara Arshad is a 34 y.o. female with past medical history of right a SDH SP R DHC (SB, 05/17/2024) and R CP (RK, 07/19/2024), ADHD who presents on 12/06/2024 for mechanical fall. CTH shows right a SDH, temporal contusion, comminuted fracture of cranioplasty especially in temporal portion . Notably there is pneumocephalus surrounding bone, CP site with laceration behind ear and near root of zygoma. Patient reports tripping over her dog and hitting head on corner of table. Patients endorses headache. Patient denies nausea, vomiting, dizziness, or new weakness. Patient had previous acute SDH on right side and 05/17/2024 that required decompressive hemicraniectomy. Cranioplasty on right side was performed 07/19/2024. Patient has been doing well since that time. Blood thinner use includes none. NSGY consulted for manangement of SDH, tSAH, and Skull Fracture. Impression (I have reviewed all pertinent neurosurgical imaging and agree with the findings below) : - Right upper skull fracture involving cranioplasty, a SDH, contusion - 05/17/2024 R a SDH SP R C SP - 07/19/2024 right cranioplasty, evacuation of subdural hygroma RK -12/13/2024 craniectomy/cranioplasty I have seen and examined the patient and updated her on her condition. She isat baseline with expected postop changes. We will remove the drain and start subcutaneous heparin. We will transfer to the floor and await cultures/final ID recs. We will mobilize and follow her exam. Please call [phone] with questions. Art Sanchez [facility] Neurosurgery * Macey Mchugh PharmD - 12/13/2024 9:39 PM CDT Clinician Notes: Treatment Indication: CUSHION GUM APPLICATOR Infection/ Epidural Abscess Vancomycin Start Date:12/13/2024 Next Level Due 12/14/24 with 0300 AM lab Please contact [facility] at [phone] with questions. Recommended Dose: 1500 mg IV over 2.5 hours every 12 hours for 2 days Next Dose At: 08:55 on Dec 14 2024 Dosing Interval: 12 hours Infusion Length: 2.5 hours Dose Valid For: 2 days only Dose Recommendation Method: Clinician-selected target (Individualized model) Target Outcome: AUC24: 500 mcg.h/mL Predicted Outcome: AUC24: 525.69 mcg.h/mL Predicted Peak: 30.7 mcg/mL Predicted Trough: 14.6 mcg/mL Predicted AUC24: 525.7 mcg.h/mL Predicted AUC12: 262.8 mcg.h/mL Most Recent Dose: 1750 mg over 2 hours at 20:55 on Dec 13 2024 Most Recent SCr: 0.69 mg/dL at 16:55 on Dec 13 2024 Most Recent Blood Concentration: 21.1 mcg/mL at 01:29 on Dec 08 2024 Peak: 22.4 mcg/mL Trough: 10.2 mcg/mL AUC24: 357 mcg.h/mL AUC12: 178 mcg.h/mL * Adam Duran MD PhD - 12/13/2024 1:23 PM CDT NEUROSURGERY POST OP CHECK Date: 12/13/24 Patients Name: Sara Arshad : 1990 Age/Sex: 34 y.o. female Admit Date: 12/13/2024 Admitting Provider: Art Sanchez MD Service: Neurosurgery Trauma Team Pain and Nausea Control: yes Hemodynamic Stability: yes Dressing: Clean, Dry and Intact Post op Fluid Balance: Euvolemic Neurological Examination: Normal Remarks: Extubated, awake, moving all 4 well I have communicated with ICU: yes I have communicated with Primary Attending: yes Adam Duran MD PhD Cosigned by Art Sanchez MD at 12/13/2024 2:58 PM CDT [id number] 14:44:55Pending Results Scheduled Orders Name Type Priority Associated Diagnoses Order Schedule Gram Stain Microbiology Routine Other acquired deformity of head Release Upon Ordering for 1 Occurrences starting 12/13/2024 Gram Stain Intraoperative Microbiology Routine Other acquired deformity of head Release Upon Ordering for 1 Occurrences starting 12/13/2024 Incentive spirometry Respiratory Care Routine As needed until discontinued starting 12/13/2024 Basic Metabolic Panel Lab Routine Mor reji draw (Lab) for 2 Weeks starting 12/14/2024 until 12/27/2024, 3 completed Complete Blood Count w/Diff and Platelet Lab Routine Morning draw (Lab) for 5 Days starting 12/14/2024 until 12/18/2024, 3 completed Magnesium Level Lab Add-On Every Mon /Wed/Fri (Lab) for 4 Weeks starting 12/18/2024 until 01/13/2025 Phosphorus Level Lab Add-On Every Mo n/Mon/Mon (Lab) until discontinued starting 12/18/2024 Health Maintenance Due Date Last Done Comments Annual Physical 01/21/1995 Varicella Vaccines (1 of 2 - 13+ 2-dose series) 01/21/2005 DTaP/Tdap/Td Vaccines (1 - Tdap) 01/21/2011 Hepatitis A Vaccines (1 of 2 - Risk 2-dose series) 01/21/2011 Pneumococcal Vaccine: Pediatrics (0 to 5 Years) and At-Risk Patients (6 to 64 Years) (1 of 2 - PCV) 01/21/2011 Pap Smear 01/21/2013 Cervical Cancer Screening 01/21/2022 HPV/Cotest 01/21/2022 HPV Vaccines (2 - 3-dose SCD M series) 03/17/2022 02/17/2022 Hepatitis B Vaccines (2 of 2 - CpG 2-dose series) 03/17/2022 02/17/2022 Influenza Vaccine (#1) 2025 5, 02/17/2022 Lipid Panel 12/06/2029 12/06/2024 Respiratory Syncytial Virus (RSV) Adult Series (1 - 1-dose 75+ series) 01/21/2067 HIB Vaccines Aged Out No longer eligi ble based on patient's age to complete this topic IPV Vaccines Aged Out No longer eligi ble based on patient's age to complete this topic Meningococcal Vaccine Aged Out No mariam eduin eligible based on patient's age to complete this topic Rotavirus Vaccines Aged Out No longer eligible based on patient's age to complete this topic Farhad [id number] 14:44:55 [facility] [id number] 14:44:55 [id number] 14:44:55 Diagnosis Other acquired deformity of head - [id number] 14:44:55 [id number] 14:10:16 Images from the original note were not included. [id number] Methocarbamol WHY is this medicine prescribed? Methocarbamol is used with rest, physical therapy, and other measures to relax muscles and relieve pain and discomfort caused by strains, sprains, and other muscle injuries. Methocarbamol is in a class of medications called muscle relaxants. It works by slowing activity in the nervous system to allow the body to relax HOW should this medicine be used? Methocarbamol comes as a tablet to take by mouth. It usually is taken four times a day at first, then it may be changed to three to six times a day. Follow the directions on your prescription label carefully, and ask your doctor or pharmacist to explain any part you do not understand. Take methocarbamol exactly as directed. Do not take more or less of it or take it more often than prescribed by your doctor. Are there OTHER USES for this medicine? This medication may be prescribed for other uses. Ask your doctor or pharmacist for more information. What SPECIAL PRECAUTIONS should I follow? Before taking methocarbamol, ? tell your doctor and pharmacist if you are allergic to methocarbamol, any other medications or any of the ingredients in methocarbamol tablets. Ask your doctor or pharmacist for a list of the ingredients. ? tell your doctor and pharmacist what prescription and nonprescription medications, vitamins, nutritional supplements, and herbal products you are taking or plan to take while taking methocarbamol. Your doctor may need to change the doses of your medications or monitor you carefully for side effects. ? tell your doctor if you are , plan to become , or are breast-feeding. If you become while taking methocarbamol, call your doctor. ? talk to your doctor about the risks and benefits of taking methocarbamol if you are 65 years of age or older. Older adults should not usually take methocarbamol because it is not as safe or as effective as other medications that can be used to treat the same condition. ? you should know that this medication may make you drowsy. Do not drive a car or operate machinery until you know how methocarbamol affects you. ? talk to your doctor about the safe use of alcohol during your treatment with this medication. Alcohol can make the side effects of methocarbamol worse. What SPECIAL DIETARY instructions should I follow? Unless your doctor tells you otherwise, continue your normal diet. What should I do IF I FORGET to take a dose? Take the missed dose as soon as you remember it. However, if it is almost time for the next dose, skip the missed dose and continue your regular dosing schedule. Do not take a double dose to make up for a missed one. What SIDE EFFECTS can this medicine cause? If you experience either of the following symptoms, call your doctor immediately: ? rash ? itching Methocarbamol may cause other side effects. Call your doctor if you have any unusual problems while you are taking this medication. If you experience a serious side effect, you or your doctor may send a report to the Food and Drug Administration's (FDA) MedWatch Adverse Event Reporting program online (https://www.fda.gov/Safety/MedWatch) or by phone ( ). What should I know about STORAGE and DISPOSAL of this medication? Keep this medication in the container it came in, tightly closed, and out of reach of children. Store it at room temperature and away from excess heat and moisture (not in the bathroom). Dispose of unneeded medications in a way so that pets, children, and other people cannot take them. Do not flush this medication down the toilet. Use a medicine take-back program. Talk to your pharmacist about take-back programs in your community. Visit the FDA's Safe Disposal of Medicines website https://goo.gl/c4Rm4p for more information. Keep all medication out of sight and reach of children as many containers are not child-resistant. Always lock safety caps. Place the medication in a safe location - one that is up and away and out of their sight and reach. https://www.upandaway.org What should I do in case of OVERDOSE? In case of overdose, call the poison control helpline at . Information is also available online at https://www.poisonhelp.org/help. If the victim has collapsed, had a seizure, has trouble breathing, or can't be awakened, immediately call emergency services at 911. What OTHER INFORMATION should I know? Keep all appointments with your doctor. Do not let anyone else take your medication. Ask your pharmacist any questions you have about refilling your prescription. Keep a written list of all of the prescription and nonprescription (gqqp-zqd-rrjtlof) medicines, vitamins, minerals, and dietary supplements you are taking. Bring this list with you each time you visit a doctor or if you are admitted to the hospital. You should carry the list with you in case of emergencies. Brand Name(s): ? Robaxin? also available generically This report on medications is for your information only, and is not considered individual patient advice. Because of the changing nature of drug information, please consult your physician or pharmacist about specific clinical use. [employer] represents that the information provided hereunder was formulated with a reasonable standard of care, and in conformity with professional standards in the field. [employer] makes no representations or warranties, express or implied, including, but not limited to, any implied warranty of merchantability and/or fitness for a particular purpose, with respect to such information and specifically disclaims all such warranties. Users are advised that decisions regarding drug therapy are complex medical decisions requiring the independent, informed decision of an appropriate health health care liaison, and the information is provided for informational purposes only. The entire monograph for a drug should be reviewed for a thorough understanding of the drug's actions, uses and side effects. The [employer] does not endorse or recommend the use of any drug. The information is not a substitute for medical care. AHFS? Patient Medication Information?. ? Copyright, 2023. [employer]?, [address], [address], [place], [place]. All Rights Reserved. Duplication for commercial use must be authorized by [facility]. Selected Revisions: December 27, 2016. AHFS? Patient Medication Information?. ? Copyright, 2024 [facility]2025-08-04 14:10:14 Images from the original note were not included. [id number] Levetiracetam WHY is this medicine prescribed? Levetiracetam is used alone and along with other medications to control partial-onset seizures (seizures that involve only one part of the brain) in adults, children, and infants 1 month of age or older. Levetiracetam is also used in combination with other medications to treat seizure in adults and children 12 years of age or older with juvenile myoclonic epilepsy. Levetiracetam is also used in combination with other medications to treat primary generalized tonic-clonic seizures (formerly known as a grand mal seizure; seizure that involves the entire body) in adults and children 6 years of age or older with epilepsy. Levetiracetam is in a class of medications called anticonvulsants. It works by decreasing abnormal excitement in the brain. HOW should this medicine be used? Levetiracetam comes as a solution (liquid), an immediate-release tablet, an extended-release (long-acting) tablet, and as a tablet for suspension (a tablet to take with liquid) to take by mouth. The solution, immediate-release tablet, and tablet for suspension are usually taken twice a day, once in the morning and once at night, with or without food. The extended-release tablets are usually taken once daily with or without food. Try to take levetiracetam at around the same time(s) every day. Follow the directions on your prescription label carefully, and ask your doctor or pharmacist to explain any part you do not understand. Take levetiracetam exactly as directed. Do not take more or less of it or take it more often than prescribed by your doctor. Swallow the levetiracetam immediate-release and extended-release tablets whole; do not split, chew, or crush them. Take the whole levetiracetam tablets for suspension according to directions; do not split, chew, or crush them. To take levetiracetam tablet(s) for suspension, use dry hands to peel the foil from the blister packaging; do not try to push the tablets through the foil. Immediately take out the number of tablet(s) that your doctor has told you to take and place the tablet(s) on your tongue with a sip of liquid. Once the tablet completely dissolves on your tongue, swallow the mixture. The tablet(s) may take about 10 seconds to dissolve. You can also take levetiracetam tablets for suspension by dissolving them in a liquid. Place the number of tablet(s) your doctor has told you to take into a cup and add a small amount of liquid (about 1 tablespoon [15 mL] or enough to cover the medication in a cup). Swirl the cup gently. After the tablet(s) for suspension dissolve, drink the mixture right away. If there is any medication left in the cup, add some more liquid and swirl the cup gently. Drink the mixture water right away to be sure that you swallow all of the medication. If you are taking the levetiracetam oral solution, do not use a household spoon to measure your dose. You might not get the right amount of medication. Ask your doctor or pharmacist to recommend a medicine dropper, spoon, cup, or syringe and to show you how to use it to measure your medication. Your doctor may start you on a low dose of levetiracetam and gradually increase your dose, not more often than once every 2 weeks. Levetiracetam controls epilepsy but does not cure it. Continue to take levetiracetam even if you feel well. Do not stop taking levetiracetam without talking to your doctor, even if you experience side effects such as unusual changes in behavior or mood. If you suddenly stop taking levetiracetam, your seizures may become worse. Your doctor will probably decrease your dose gradually. Your doctor or pharmacist will give you the corn cutter operator's patient information sheet (Medication Guide) when you begin treatment with levetiracetam and each time you refill your prescription. Read the information carefully and ask your doctor or pharmacist if you have any questions. You can also visit the Food and Drug Administration (FDA) website (https://www.fda.gov/Drugs) or the corn cutter operator's website to obtain the Medication Guide. Are there OTHER USES for this medicine? This medication may be prescribed for other uses; ask your doctor or pharmacist for more information. What SPECIAL PRECAUTIONS should I follow? Before taking levetiracetam, ? tell your doctor and pharmacist if you are allergic to levetiracetam, any other medications, or any of the ingredients in levetiracetam products. Ask your pharmacist or check the Medication Guide for a list of the ingredients. ? tell your doctor and pharmacist what prescription and nonprescription medications, vitamins, nutritional supplements, and herbal products you are taking or plan to take. Your doctor may need to change the doses of your medications or monitor you carefully for side effects. ? tell your doctor if you have or have ever had kidney disease, depression, mood problems, or suicidal thoughts or behavior. ? tell your doctor if you are , plan to become , or are . If you become while taking levetiracetam, call your doctor. ? you should know that levetiracetam may make you dizzy or drowsy. Do not drive a car or operate machinery until you know how this medication affects you. ? you should know that your mental health may change in unexpected ways and you may become suicidal (thinking about harming or killing yourself or planning or trying to do so) while you are taking levetiracetam for the treatment of epilepsy, mental illness, or other conditions. A small number of adults and children 5 years of age and older (about 1 in 500 people) who took anticonvulsants such as levetiracetam to treat various conditions during clinical studies became suicidal during their treatment. Some of these people developed suicidal thoughts and behavior as early as one week after they started taking the medication. There is a risk that you may experience changes in your mental health if you take an anticonvulsant medication such as levetiracetam, but there may also be a risk that you will experience changes in your mental health if your condition is not treated. You and your doctor will decide whether the risks of taking an anticonvulsant medication are greater than the risks of not taking the medication. You, your family, or your caregiver should call your doctor right away if you experience any of the following symptoms: panic attacks; agitation or restlessness; nervousness, new or worsening irritability, anxiety, or depression; acting on dangerous impulses; difficulty falling or staying asleep; aggressive, angry, or violent behavior; jessee (frenzied, abnormally excited mood); talking or thinking about wanting to hurt yourself or end your life; withdrawing from friends and family; preoccupation with and dying; giving away prized possessions; or any other unusual changes in behavior or mood. Be sure that your family or caregiver knows which symptoms may be serious so they can call the doctor if you are unable to seek treatment on your own. What SPECIAL DIETARY instructions should I follow? Unless your doctor tells you otherwise, continue your normal diet. What should I do IF I FORGET to take a dose? If it has only been a few hours since the time you were scheduled to take the dose, take the missed dose as soon as you remember it. However, if it is almost time for the next dose, skip the missed dose and continue your regular dosing schedule. Do not take a double dose to make up for a missed one. What SIDE EFFECTS can this medicine cause? Some side effects can be serious. If you experience any of the following symptoms or those listed in the SPECIAL PRECAUTIONS section, call your doctor immediately: ? rash, fever, swollen lymph nodes, facial swelling, shortness of breath, yellowing of skin or whites of the eyes, dark urine ? seizures that are worse or different than the seizures you had before ? fever, sore throat, or other signs of infection ? blisters on skin ? hives ? itching ? swelling of the face, throat, tongue, lips. and eyes ? difficulty swallowing or breathing ? loss of balance or coordination Levetiracetam may cause other side effects. Call your doctor if you have any unusual problems while taking this medication. If you experience a serious side effect, you or your doctor may send a report to the Food and Drug Administration's (FDA) MedWatch Adverse Event Reporting program online (https://www.fda.gov/Safety/MedWatch) or by phone ( ). What should I know about STORAGE and DISPOSAL of this medication? Keep this medication in the container it came in, tightly closed, and out of reach of children. Store it at room temperature and away from light, excess heat and moisture (not in the bathroom). Dispose of unneeded medications in a way so that pets, children, and other people cannot take them. Do not flush this medication down the toilet. Use a medicine take-back program. Talk to your pharmacist about take-back programs in your community. Visit the FDA's Safe Disposal of Medicines website https://goo.gl/c4Rm4p for more information. Keep all medication out of sight and reach of children as many containers are not child-resistant. Always lock safety caps. Place the medication in a safe location - one that is up and away and out of their sight and reach. https://www.upandaway.org What should I do in case of OVERDOSE? In case of overdose, call the poison control helpline at . Information is also available online at https://www.poisonhelp.org/help. If the victim has collapsed, had a seizure, has trouble breathing, or can't be awakened, immediately call emergency services at 491. Symptoms of overdose may include the following: ? drowsiness ? agitation ? aggression ? decreased consciousness or loss of consciousness (coma) ? difficulty breathing What OTHER INFORMATION should I know? Keep all appointments with your doctor. If an or child younger than 4 years of age receives levetiracetam, your doctor will check their blood pressure regularly. Do not let anyone else take your medication. Ask your pharmacist any questions you have about refilling your prescription. Keep a written list of all of the prescription and nonprescription (jjdn-ejt-rnkbjgn) medicines, vitamins, minerals, and dietary supplements you are taking. Bring this list with you each time you visit a doctor or if you are admitted to the hospital. You should carry the list with you in case of emergencies. Brand Name(s): ? Elepsia? XR ? Keppra? ? Keppra? XR ? Spritam? also available generically This report on medications is for your information only, and is not considered individual patient advice. Because of the changing nature of drug information, please consult your physician or pharmacist about specific clinical use. [employer] represents that the information provided hereunder was formulated with a reasonable standard of care, and in conformity with professional standards in the field. [employer] makes no representations or warranties, express or implied, including, but not limited to, any implied warranty of merchantability and/or fitness for a particular purpose, with respect to such information and specifically disclaims all such warranties. Users are advised that decisions regarding drug therapy are complex medical decisions requiring the independent, informed decision of an appropriate health health care liaison, and the information is provided for informational purposes only. The entire monograph for a drug should be reviewed for a thorough understanding of the drug's actions, uses and side effects. [employer] does not endorse or recommend the use of any drug. The information is not a substitute for medical care. AHFS? Patient Medication Information?. ? Copyright, 2023. [employer]?, [address], [address], [place], [place]. All Rights Reserved. Duplication for commercial use must be authorized by [facility]. Selected Revisions: September 02, 2023. AHFS? Patient Medication Information?. ? Copyright, 2024 [facility]2025-08-04 14:10:08 Images from the original note were not included. [id number] Gabapentin WHY is this medicine prescribed? Gabapentin capsules, tablets, and oral solution are used along with other medications to help control certain types of seizures in people who have epilepsy. Gabapentin capsules, tablets, and oral solution are also used to relieve the pain of postherpetic neuralgia (PHN; the burning, stabbing pain or aches that may last for months or years after an attack of shingles). Gabapentin extended-release tablets (Horizant) are used to treat restless legs syndrome (RLS; a condition that causes discomfort in the legs and a strong urge to move the legs, especially at night and when sitting or lying down). Gabapentin is in a class of medications called anticonvulsants. Gabapentin treats seizures by decreasing abnormal excitement in the brain. Gabapentin relieves the pain of PHN by changing the way the body senses pain. It is not known exactly how gabapentin works to treat restless legs syndrome. HOW should this medicine be used? Gabapentin comes as a capsule, a tablet, an extended-release (long-acting) tablet, and an oral solution (liquid) to take by mouth. Gabapentin capsules, tablets, and oral solution are usually taken with a full glass of water (8 ounces [240 milliliters]), with or without food, three times a day. These medications should be taken at evenly spaced times throughout the day and night; no more than 12 hours should pass between doses. The extended-release tablet (Horizant) is taken with food once daily at about 5 PM. Follow the directions on your prescription label carefully, and ask your doctor or pharmacist to explain any part you do not understand. Take gabapentin exactly as directed. Do not take more or less of it or take it more often than prescribed by your doctor. Gabapentin extended-release tablets cannot be substituted for another type of gabapentin product. Be sure that you receive only the type of gabapentin that was prescribed by your doctor. Ask your pharmacist if you have any questions about the type of gabapentin you were given. Swallow the extended-release tablets whole; do not cut, chew, or crush them. If your doctor tells you to take one-half of a regular tablet as part of your dose, carefully split the tablet along the score ash. Use the other half-tablet as part of your next dose. Properly dispose of any half-tablets that you have not used within several days of breaking them. If you are taking gabapentin to control seizures or PHN, your doctor will probably start you on a low dose of gabapentin and gradually increase your dose as needed to treat your condition. If you are taking gabapentin to treat PHN, tell your doctor if your symptoms do not improve during your treatment. Gabapentin may help to control your condition but will not cure it. Continue to take gabapentin even if you feel well. Do not stop taking gabapentin without talking to your doctor, even if you experience side effects such as unusual changes in behavior or mood. If you suddenly stop taking gabapentin tablets, capsules, or oral solution, you may experience withdrawal symptoms such as anxiety, difficulty falling asleep or staying asleep, nausea, pain, and sweating. If you are taking gabapentin to treat seizures and you suddenly stop taking the medication, you may experience seizures more often. Your doctor may decrease your dose gradually over at least a week. Your doctor or pharmacist will give you the corn cutter operator's patient information sheet (Medication Guide) when you begin treatment with gabapentin and each time you refill your prescription. Read the information carefully and ask your doctor or pharmacist if you have any questions. You can also visit the Food and Drug Administration (FDA) website (https://www.fda.gov/Drugs) or the corn cutter operator's website to obtain the Medication Guide. Are there OTHER USES for this medicine? Gabapentin is also sometimes used to relieve the pain of diabetic neuropathy (numbness or tingling due to nerve damage in people who have diabetes), and to treat and prevent hot flashes (sudden strong feelings of heat and sweating) in women who are being treated for breast cancer or who have experienced menopause (''change of life'', the end of monthly menstrual periods). Talk to your doctor about the risks of using this medication for your condition. This medication may be prescribed for other uses; ask your doctor or pharmacist for more information. What SPECIAL PRECAUTIONS should I follow? Before taking gabapentin, ? tell your doctor and pharmacist if you are allergic to gabapentin, any other medications, or any of the inactive ingredients in the type of gabapentin you plan to take. Ask your pharmacist for a list of the inactive ingredients. ? you should know that gabapentin is available in different forms that may be prescribed for different uses. Ask your doctor to be sure that you are not taking more than one product that contains gabapentin. ? tell your doctor and pharmacist what prescription and nonprescription medications, vitamins, nutritional supplements, and herbal products you are taking or plan to take while taking gabapentin. Your doctor may need to change the doses of your medications or monitor you carefully for side effects. ? if you are taking antacids such as Maalox or Mylanta, take them at least 2 hours before you take gabapentin tablets, capsules, or solution. ? the following nonprescription products may interact with gabapentin: nonsteroidal anti-inflammatory drugs (NSAIDS) such as ibuprofen (Advil, Motrin, others) and naproxen (Aleve). Be sure to let your doctor and pharmacist know that you are taking these medications before you start taking gabapentin. Do not start any of these medications while taking gabapentin without discussing with your healthcare provider. ? tell your doctor if you have or have ever had lung or kidney disease. If you will be taking the extended-release tablets, also tell your doctor if you need to sleep during the day and stay awake at night. ? tell your doctor if you are , plan to become , or are breast-feeding. If you become while taking gabapentin, call your doctor. ? if you are having surgery, including dental surgery, tell the doctor or dentist that you are taking gabapentin. ? you should know that this medication may make you drowsy or dizzy, may slow your thinking, and may cause loss of coordination. Do not drive a car or operate machinery until you know how this medication affects you, and your doctor agrees that it is safe for you to begin these activities. ? if you are giving gabapentin to your child, you should know that your child's behavior and mental abilities may change while he or she is taking gabapentin. Your child may have sudden changes in mood, become hostile or hyperactive, have difficulty concentrating or paying attention, or be drowsy or clumsy. Have your child avoid activities that could be dangerous, such as riding a bicycle, until you know how gabapentin affects him or her. ? remember that alcohol can add to the drowsiness caused by this medication. ? you should know that your mental health may change in unexpected ways and you may become suicidal (thinking about harming or killing yourself or planning or trying to do so) while you are taking gabapentin for the treatment of epilepsy, mental illness, or other conditions. A small number of adults and children 5 years of age and older (about 1 in 500 people) who took anticonvulsants such as gabapentin to treat various conditions during clinical studies became suicidal during their treatment. Some of these people developed suicidal thoughts and behavior as early as one week after they started taking the medication. There is a risk that you may experience changes in your mental health if you take an anticonvulsant medication such as gabapentin, but there may also be a risk that you will experience changes in your mental health if your condition is not treated. You and your doctor will decide whether the risks of taking an anticonvulsant medication are greater than the risks of not taking the medication. You, your family, or your caregiver should call your doctor right away if you experience any of the following symptoms: panic attacks; agitation or restlessness; new or worsening irritability, anxiety, or depression; acting on dangerous impulses; difficulty falling or staying asleep; aggressive, angry, or violent behavior; jessee (frenzied, abnormally excited mood); talking or thinking about wanting to hurt yourself or end your life; withdrawing from friends and family; preoccupation with and dying; giving away prized possessions; or any other unusual changes in behavior or mood. Be sure that your family or caregiver knows which symptoms may be serious so they can call the doctor if you are unable to seek treatment on your own. What SPECIAL DIETARY instructions should I follow? Unless your doctor tells you otherwise, continue your normal diet. What should I do IF I FORGET to take a dose? If you forget to take gabapentin capsules, tablets, or oral solution, take the missed dose as soon as you remember it. However, if it is almost time for the next dose or if you forget to take gabapentin extended-release tablets, skip the missed dose and continue your regular dosing schedule. Do not take a double dose to make up for a missed one. What SIDE EFFECTS can this medicine cause? Some side effects may be serious. If you experience any of the following symptoms, call your doctor immediately: ? rash ? itching ? swelling of the face, throat, tongue, lips, or eyes ? hoarseness ? difficulty swallowing or breathing ? seizures ? difficulty breathing; bluish-tinged skin, lips, or fingernails; confusion; or extreme sleepiness Gabapentin may cause other side effects. Call your doctor if you have any unusual problems while taking this medication. If you experience a serious side effect, you or your doctor may send a report to the Food and Drug Administration's (FDA) MedWatch Adverse Event Reporting program online (https://www.fda.gov/Safety/MedWatch) or by phone ( ). What should I know about STORAGE and DISPOSAL of this medication? Keep this medication in the container it came in, tightly closed, and out of reach of children. Store the tablets, extended-release tablets, and capsules at room temperature, away from excess heat and moisture (not in the bathroom). Store the oral solution in the refrigerator. Keep all medication out of sight and reach of children as many containers are not child-resistant. Always lock safety caps. Place the medication in a safe location - one that is up and away and out of their sight and reach. https://www.upandaway.org Dispose of unneeded medications in a way so that pets, children, and other people cannot take them. Do not flush this medication down the toilet. Use a medicine take-back program. Talk to your pharmacist about take-back programs in your community. Visit the FDA's Safe Disposal of Medicines website https://goo.gl/c4Rm4p for more information. What should I do in case of OVERDOSE? In case of overdose, call the poison control helpline at . Information is also available online at https://www.poisonhelp.org/help. If the victim has collapsed, had a seizure, has trouble breathing, or can't be awakened, immediately call emergency services at 911. Symptoms of overdose may include the following: ? double vision ? slurred speech ? drowsiness ? diarrhea What OTHER INFORMATION should I know? Keep all appointments with your doctor. Before having any laboratory test, tell your doctor and the laboratory personnel that you are taking gabapentin. If you use a dipstick to test your urine for protein, ask your doctor which product you should use while taking this medication. Do not let anyone else take your medication. Ask your pharmacist any questions you have about refilling your prescription. Keep a written list of all of the prescription and nonprescription ([id number]) medicines, vitamins, minerals, and dietary supplements you are taking. Bring this list with you each time you visit a doctor or if you are admitted to the hospital. You should carry the list with you in case of emergencies. Brand Name(s): ? Gralise? ? Horizant? ? Neurontin? also available generically This report on medications is for your information only, and is not considered individual patient advice. Because of the changing nature of drug information, please consult your physician or pharmacist about specific clinical use. The [employer] [employer] represents that the information provided hereunder was formulated with a reasonable standard of care, and in conformity with professional standards in the field. The [employer] makes no representations or warranties, express or implied, including, but not limited to, any implied warranty of merchantability and/or fitness for a particular purpose, with respect to such information and specifically disclaims all such warranties. Users are advised that decisions regarding drug therapy are complex medical decisions requiring the independent, informed decision of an appropriate health health care liaison, and the information is provided for informational purposes only. The entire monograph for a drug should be reviewed for a thorough understanding of the drug's actions, uses and side effects. The [employer] does not endorse or recommend the use of any drug. The information is not a substitute for medical care. AHFS? Patient Medication Information?. ? Copyright, 2023. The [employer]?, [address], [address], [place], [place]. All Rights Reserved. Duplication for commercial use must be authorized by [facility]. Selected Revisions: September 27, 2019. AHFS? Patient Medication Information?. ? Copyright, 2024 Farhad [id number] 14:10:01 Images from the original note were not included. [id number] What Is a Subdural Hematoma? A subdural hematoma is a buildup of blood in a space between the layers of tissue that surround your brain. Your brain sits inside your bony skull. Inside your skull are several layers, called the meninges. These layers cover and protect the brain. The layer just inside the skull is called the dura mater, or dura. It's a tough, fibrous layer of tissue. On the inside of the dura is a layer called the arachnoid. When blood builds up between these layers, it can cause severe problems. A subdural hematoma is a medical emergency. Call 911 This condition is a medical emergency. Call 911 if you have the symptoms listed below. What causes a subdural hematoma? The most common cause is a head injury. This may be from a fall, a car crash, a sports injury, or a violent attack. The sudden impact can damage the blood vessels inside the dura. This causes them to rip and bleed. Small arteries may break in the subdural space. In some people, the brain shrinks. This is often from aging. The subdural space gets bigger. This can make the blood vessels more likely to break. Another cause is taking medicine to prevent blood clots. These include warfarin, aspirin, and other blood thinners. Rare causes include leaking of cerebrospinal fluid, a tumor, or rupture of a weak part of a blood vessel (cerebral aneurysm). Symptoms of a subdural hematoma It may cause symptoms right away. Or it may grow slowly and cause symptoms weeks later. Symptoms may include: ? A headache. ? Nausea or vomiting. ? Loss of consciousness. ? Confusion. ? Dizziness. ? Balance or walking problems. ? Speech problems. ? Vision problems. ? Sleepiness. ? Weakness or numbness that may come and go. ? Seizures. Treating a subdural hematoma The most common treatment is surgery. This helps to relieve the pressure on the brain. There are two surgeries used to treat hematomas. The surgeon can: ? Drill a hole in the skull to allow the blood to drain (sage hole). ? Cut a flap of skull open to remove the blood (craniotomy). If the subdural hematoma is small, your doctor may not do surgery right away. Instead, they may closely watch it. In this case, you will likely stay in the hospital. You may: ? Have repeated CT scans to watch the hematoma. ? Have a tube (catheter) inserted in your head to measure your intracranial pressure. ? Take medicines to control symptoms. ? Need to stop blood-thinner medicine. ? Get vitamin K therapy to reverse the effects of some blood-thinner medicines. Last Reviewed Date: 2024 00:00:00 ? 6411-4538 [employer]. All rights reserved. This information is not intended as a substitute for professional medical care. Always follow your healthcare professional's instructions. [id number] 16:40:15 The patient is Moderately Stable - Low risk of patient condition declining or worsening The patient's goals for the shift include The clinical goals for the shift include [facility]2025-08-02 12:28:06 The patient is Moderately Stable - Low risk of patient condition declining or worsening The patient's goals for the shift include out of bed to chair, removing art line and using the toilet The clinical goals for the shift include Move to floor, maintain medical stability Over the shift, the patient did make progress toward the following goals. Barriers to progression include none. Recommendations to address these barriers include not applicable . T [facility]2025-08-01 17:09:33 The patient is Moderately Unstable - Medium risk of patient condition declining or worsening The patient's goals for the shift include pain free The clinical goals for the shift include manage pain , monitor neuro status Over the shift, the patient did not make progress toward the following goals. Barriers to progression include post surgical discomfort. Recommendations to address these barriers include promote safety and comfort Problem: Neurosensory - Adult Goal: Achieves stable or improved neurological status Outcome: Ongoing Goal: Absence of seizures Outcome: Ongoing Goal: Remains free of injury related to seizures activity Outcome: Ongoing Goal: Achieves maximal functionality and self care Outcome: Ongoing Problem: Respiratory - Adult Goal: Achieves optimal ventilation and oxygenation Outcome: Ongoing Problem: Cardiovascular - Adult Goal: Maintains optimal cardiac output and hemodynamic stability Outcome: Ongoing Goal: Absence of cardiac dysrhythmias or at baseline Outcome: Ongoing Problem: Skin/Tissue Integrity - Adult Goal: Skin integrity remains intact Outcome: Ongoing Goal: Incisions, wounds, or drain sites healing without S/S of infection Outcome: Ongoing Goal: Oral mucous membranes remain intact Outcome: Ongoing Problem: Musculoskeletal - Adult Goal: Return mobility to safest level of function Outcome: Ongoing Goal: Maintain proper alignment of affected body part Outcome: Ongoing Goal: Return ADL status to a safe level of function Outcome: Ongoing Problem: Gastrointestinal - Adult Goal: Minimal or absence of nausea and vomiting Outcome: Ongoing Goal: Maintains or returns to baseline bowel function Outcome: Ongoing Goal: Maintains adequate nutritional intake Outcome: Ongoing Goal: Establish and maintain optimal ostomy function Outcome: Ongoing Problem: Genitourinary - Adult Goal: Absence of urinary retention Outcome: Ongoing Goal: Urinary catheter remains patent Outcome: Ongoing Problem: Infection - Adult Goal: Absence of infection at discharge Outcome: Ongoing Goal: Absence of infection during hospitalization Outcome: Ongoing Goal: Absence of fever/infection during anticipated neutropenic period Outcome: Ongoing Problem: Metabolic/Fluid and Electrolytes - Adult Goal: Electrolytes maintained within normal limits Outcome: Ongoing Goal: Hemodynamic stability and optimal renal function maintained Outcome: Ongoing Goal: Glucose maintained within prescribed range Outcome: Ongoing Problem: Hematologic - Adult Goal: Maintains hematologic stability Outcome: Ongoing . [facility]2025-07-27 08:57:35* * Auth/Cert (Routine) Specialty Diagnoses / Procedures Referred By Skyla t Referred To Contact Diagnoses Subdural hematoma (HCC) Fall (Tripped and fell over her dog hitting her head) Trauma (SDH with acute skull fracture) Other (Drinking alcohol) Procedures [facility] IP/OBS CARE SF/LOW MDM 40 MINUTES Art Sanchez MD [address] [facility] [address] [place] [address] Phone: tel: fax: [facility] ([facility]) [address] [place] [address] Phone: tel: Referral ID Status Reason Start Date Expiration Date Visits Re quested Visits Authorized [id number] 1 [id number] 08:57:35* AUDIT-C Score Answer Date of Assessment Author 0 12/06/2024 4:32 AM CDT Mark Sparks RN * * Calculated C-SSRS Risk Score (Lifetime/Recent) Answer Date of Assessment Author No Risk Indicated 12/06/2024 4:33 AM CDT Israel Sparks RN * [place] Suicide Severity Rating Scale (Screener/Recent Self-Report) Question Answer Date of Assessment Author 1. Wish to be (Past 1 Month) No 025 4:33 AM CDT Israel Sparks RN 2. Non-Specific Active Suici annmarie Thoughts (Past 1 Month) No 12/06/2024 4:33 AM CDT Israel Sparks RN 6. Suicidal Behavior (Lifetime) No 4:33 AM CDT Israel Sparks RN [id number] 08:57:35* Louis Mcrae MD - 12/07/2024 11:50 AM CDT NEUROSURGERY PROGRESS NOTE: Date: 12/06/24 Patients Name: Sara Arshad Admit Date: 12/06/2024 Admitting Provider: Sophia Fletcher MD : 1990 Service: Neurosurgery Trauma Team Age/Sex: 34 y.o. female SUBJECTIVE: Sara Arshad is a 34 y.o. female with past medical history of right a SDH SP R DHC (SB, 05/17/2024) and R CP (RK, 07/19/2024), ADHD who presents on 12/06/2024 for mechanical fall. CTH shows right a SDH, temporal contusion, comminuted fracture of cranioplasty especially in temporal portion . Notably there is pneumocephalus surrounding bone, CP site with laceration behind ear and near root of zygoma. Patient reports tripping over her dog and hitting head on corner of table. Patients endorses headache. Patient denies nausea, vomiting, dizziness, or new weakness. Patient had previous acute SDH on right side and 05/17/2024 that required decompressive hemicraniectomy. Cranioplasty on right side was performed 07/19/2024. Patient has been doing well since that time. Blood thinner use includes none. NSGY consulted for manangement of SDH, tSAH, and Skull Fracture. OBJECTIVE: Vitals: Vitals: 12/06/24 1700 12/06/24 1800 12/06/24 1900 12/06/24 2100 BP: (!) 97/52 104/61 115/66 Pulse: 87 85 79 Resp: 22 22 21 Temp: 36.6 ?C (97.9 ?F) SpO2: 98% 98% 98% I/O: Intake/Output Summary (Last 24 hours) at 12/06/2024 2240Last data filed at 12/06/2024 0900 Gross per 24 hour Intake 461.67 ml Output -- Net 461.67 ml PHYSICAL EXAM: Eyes open Fcx4 Alert and oriented x3 Left pupil 3mm and brisk Right pupil 3 mm and brisk EOMI RUE full strengthRLE full strength LUE full strength LLE full strength No drift Incision over right ear, root of zygomaRemaining incision from hemicraniectomy intact, well-healed LABS/IMAGING:Labs: UA WBC Date Value Ref Range Status 12/06/2024 <1 0 - 5 /HPF Final HgbDate Value Ref Range Status 12/06/2024 10.9 10.8 - 14.8 g/dL Final POC A Hct (calc)Date Value Ref Range Status 05/17/2024 31.0 26.8 - 57.2 % Final HctDate Value Ref Range Status 12/06/2024 34.6 33.9 - 45.4 % Final Plt CountDate Value Ref Range Status 12/06/2024 192 191 - 422 10*3/uL Final POC A NaDate Value Ref Range Status 05/17/2024 134 (L) 135 - 145 mEq/L Final Sodium LvlDate Value Ref Range Status 12/06/2024 145 136 - 145 mEq/L Final POC A KDate Value Ref Range Status 05/17/2024 2.8 (LL) 3.5 - 5.1 mEq/L Final Potassium LvlDate Value Ref Range Status 12/06/2024 3.6 3.4 - 4.5 mEq/L Final Creatinine LvlDate Value Ref Range Status 12/06/2024 0.65 0.55 - 1.02 mg/dL Final Prothrombin Time (PT)Date Value Ref Range Status 12/06/2024 15.0 (H) 12 - 14.7 Seconds Final PTTDate Value Ref Range Status 12/06/2024 33.6 22.9 - 35.8 Seconds Final Activated Clotting Time (TEG) RapidDate Value Ref Range Status 05/17/2024 113 86 - 118 sec Final Radiology Imaging Reviewed: - I have personally reviewed all pertinent NSGY imaging studies and agree with the findings under "impression" ASSESSMENT AND PLAN:Active Problems: Patient Active Problem List Diagnosis ADHD Simple obesity Subdural hematoma (HCC) Assessment: Sara Arshad is a 34 y.o. female with past medical history of right a SDH SP R DHC (SB, 05/17/2024) and R CP (RK, 07/19/2024), ADHD who presents on 12/06/2024 for mechanical fall. CTH shows right a SDH, temporal contusion, comminuted fracture of cranioplasty especially in temporal portion . Notably there is pneumocephalus surrounding bone, CP site with laceration behind ear and near root of zygoma. Patient reports tripping over her dog and hitting head on corner of table. Patients endorses headache. Patient denies nausea, vomiting, dizziness, or new weakness. Patient had previous acute SDH on right side and 05/17/2024 that required decompressive hemicraniectomy. Cranioplasty on right side was performed 07/19/2024. Patient has been doing well since that time. Blood thinner use includes none. NSGY consulted for manangement of SDH, tSAH, and Skull Fracture. Impression:- Right upper skull fracture involving cranioplasty, a SDH, contusion - 05/17/2024 R a SDH SP R DHC SP - 07/19/2024 right cranioplasty, evacuation of subdural hygroma RK Plan: - I have seen and examined the patient. Patient is neurologically unchanged with unchanged imaging. We will continue to follow the patient and exam. We are attempting to have a custom titanium implant made to replace the fractures bone flap as this will be infection resistant. We are working on timing but will continue on planning Outpatient ABX regimen. Please call [phone] with NSGY questions or concerns. Louis Mcrae [facility] Neurological Surgery Cosigned by Bright Miranda MD at 12/07/2024 1:43 PM CDT Associated attestation - Bright Miranda MD - 12/07/2024 1:43 PM CDT I saw and evaluated the patient, participating in the hood portions of the service. I reviewed the resident's note. I agree with the resident's findings and plan. * Eula Ordonez, Glory - 12/07/2024 11:22 AM CDT Clinician Notes: Vancomycin Dosing and Monitoring Protocol - Follow-Up Consult Note Consulting Physician: Ronaldo Shine MD Indication for Vancomycin: Cranial Open Fracture/Wound Prophylaxis AUC Goal: 450 - 600 mg h/L Vancomycin Start Date: 12/06/24 Duration: Anticipate 7 days Plan: Change to vancomycin 1,000 mg IV every 8 hours Next level 12/08/24 MRSA PCR: Not Indicated Thank you for allowing us to participate in the care of this patient. We will continue to monitor and adjust vancomycin therapy as needed. Recommended Dose: 1000 mg IV over 1.5 hours every 8 hours for 2 days Next Dose At: 13:00 on Dec 07 2024 Dosing Interval: 8 hours Infusion Length: 1.5 hours Dose Valid For: 2 days only Dose Recommendation Method: Clinician-selected target (Individualized model) Target Outcome: AUC24: 450 mcg.h/mL Predicted Outcome: AUC24: 448.79 mcg.h/mL Predicted Peak: 26.4 mcg/mL Predicted Trough: 12.4 mcg/mL Predicted AUC24: 448.8 mcg.h/mL Predicted AUC8: 149.6 mcg.h/mL Most Recent Dose: 1250 mg over 3 hours at 04:45 on Dec 07 2024 Most Recent SCr: 0.61 mg/dL at 02:23 on Dec 07 2024 Most Recent Blood Concentration: 8.5 mcg/mL at 02:23 on Dec 07 2024 Peak: 24.1 mcg/mL Trough: 13.1 mcg/mL AUC24: 420 mcg.h/mL AUC8: 144 mcg.h/mL * Sophia Fletcher MD - 12/07/2024 6:59 AM CDT Neurocritical Care Progress Note Consulted by NSGY for medical mgmt History Of Present Illness Sara Arshad, 34 y.o. female with PMH of TBI, s/p R DHC (05/17/2024), R cranioplasty (07/19/2024), ADHD , who presented on 12/06/2024 following mechanical fall. Patient verbalized tripping over her deaf dog and hitting head on corner of table. Patient cranioplasty site with laceration behind ear and near root of zygoma. Lacerations irrigated and closed in ED. CTH showed right a SDH, temporal contusion, comminuted fracture of cranioplasty especially in temporal portion. NSGY consulted for surgical evaluation. Admitted to NSICU for neuro monitoring and management. Interval Events: 12/06: Early AM had some flushing of face and itching after starting vancomycin, concern for red man syndrome, discontinued and improved condition before Benadryl was even administered. 12/07: NSGY plan for titanium implant to replace fracture bones ASSESSMENT AND PLAN Sara Arshad, 34 y.o. female with PMH of TBI, s/p R DHC (05/17/2024), R cranioplasty (07/19/2024), ADHD, who presented on 12/06/2024 following mechanical fall. NEUROLOGIC Right upper skull fracture involving cranioplasty, SDH Contusion R a SDH SP R DHC SP (05/17/2024) right cranioplasty, evacuation of subdural hygroma RK (07/19/2024) Mechanical fall Neuro Exam: GCS: E4 Eyes open spontaneously, V5 Speech oriented, M6 Follows commands MS: AAO x3, following commands, speech fluent, no dysarthria, naming intact, no neglect CN: L pupil 3, R pupil 3, EOMI, VFF, face symmetric Motor: No drift, 5/5 strength throughout Coordination: FNF no dysmetria Sensory: intact to light touch throughout Gait: deferred 12/05: CTH showed right a SDH, temporal contusion, comminuted fracture of cranioplasty especially in temporal portion. 12/06: Slight interval blooming of acute temporal parenchymal small hemorrhagic contusions. Unchanged thin extradural hemorrhage. No midline shift. Rpt CTH stability @ 0800 stable No acute neurosurgical intervention currently but patient being closely monitored for high risk of infection and high risk of worsening bleed Keppra 500mg q12h for 7 day for sz ppx Home Celexa 10 mg resumed Holding home Adderal, explains UDS amphetamine result PT/OT/DIRECTOR DATA MANAGEMENT as indicated CARDIOVASCULAR Essential hypertension on admission CV Exam: RRR Temp: [35.9 ?C (96.7 ?F)-36.6 ?C (97.9 ?F)] 36.6 ?C (97.9 ?F) Heart Rate: [56-109] 57 Resp: [15-22] 18 BP: (96-136)/(52-82) 105/62 VS Parameters: MAP>65, SBP<150 PRN hydralazine, labetalol EKG NSR PULMONARY Pulm Exam: CTAB on NC, wean to room air for spO2>94% CXR with some perihilar opacities GASTROINTESTINAL GI Exam: soft, non-distended, present bowel sounds Nutrition: Current Order: Adult Diet Regular GI route: PO bowel regimen: miralax, senna last 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 Results Component Value Date ALT 11 12/07/2024 AST 14 12/07/2024 Alkaline Phosphatase 59 12/07/2024 Bilirubin Total 0.39 12/07/2024 RENAL Intake/Output Summary (Last 24 hours) at 12/07/2024 0659 Last data filed at 12/06/2024 0900 Gross per 24 hour Intake 150 ml Output -- Net 150 ml Urine Output: 0mL in 24hrs mL/kg/hr (last 24hrs) Results from last 7 days Lab Units 12/07/24 0223 12/06/24 0447 12/06/24 0049 SODIUM mEq/L 140 145 141 POTASSIUM mEq/L 3.4 3.6 4.0 CHLORIDE mEq/L 107 108* 108* CO2 mEq/L 23.0 24.0 23.9 BUN mg/dL 7* 9 7* CREATININE mg/dL 0.61 0.65 0.69 CALCIUM mg/dL 7.8* 7.8* 8.7 Electrolytes WNL NS 50 ml/hr while NPO DCd pt eating now No mIVF no manning INFECTIOUS DISEASE Temp (24hrs), Av.4 ?C (97.5 ?F), Min:35.9 ?C (96.7 ?F), Max:36.6 ?C (97.9 ?F) Results from last 7 days Lab Units 12/07/2422212/06/2444612/06/24 0049 WBC 10*3/uL 5.34 6.99 8.53 Monitor trend fever curve and WBC 12/06: Vancomycin and Ceftriaxone for open fracture per NSGY Consult ID for recs on open fx if possible PO so pt can take at home, if IV required she will need fdc ABX access with PICC or midline. Pharmacy dosing vanc HEMATOLOGIC Results from last 7 days Lab Units 12/07/2422212/06/2444612/06/24 0049 HEMOGLOBIN g/dL 10.7* 10.9 11.6 PLATELETS 10*3/uL 176* 192 199 INR -- 1.16* 0.99 PTT Seconds -- 33.6 31.8 TEG ordered No coagulopathy on labs or per history DVT ppx: SCDs; start sc heparin ENDOCRINE Results from last 7 days Lab Units 12/07/24 0556 12/07/24 0223 12/07/24 0045 12/06/24 0725 12/06/24 0447 POC GLUCOSE mg/dL 111* -- 123* < > -- GLUCOSE mg/dL -- 100* -- -- 82 HEMOGLOBIN A1C % -- -- -- -- 5.01 TSH uIU/mL -- -- -- -- 1.942 CHOLESTEROL mg/dL -- -- -- -- 134 TRIGLYCERIDES mg/dL -- -- -- -- 177 HDL CHOLESTEROL mg/dL -- -- -- -- 56.3 LDL CALC mg/dL -- -- -- -- 42 < > = values in this interval not displayed. BG goal 80-180 medium-dose ISS DC no SSI indicated MUSCULOSKELETAL AND INTEGUMENTARY Skin Exam: warm, dry, intact Code Status: Full Code Disposition: IMU, keep for now [facility] Neurocritical Care ICU White Team ICU Ph #[phone]; White Team IMU/Floor [facility] Ph #[phone] (available 05/12), #[phone] (available 6:30a - 4:30p) Attending Attestation - 12/07/24 The patient was seen and examined by me at a separate time from the [facility]. I also reviewed the documentation and agree with the documented findings and plan of care. Additionally, I was directly involved in the management of the patient and provided the substantive portion of this visit, including examining the patient, obtaining history, and medical decision-making. * Zaki Sanchez PT - 12/06/2024 1:03 PM CDT Physical Therapy Encounter Note Patient Name: Sara Arshad Today's Date: 12/06/2024 Missed Treatment Time and Reason Missed Time Reason: Other (Comment) (OT- Gia notified PT to inform PT that Team requested for PT/OT to defer Mobilization at this time pending replacement of implant.) Zaki Sanchez PT * Gia Saldivar OT - 12/06/2024 12:48 PM CDT OT Encounter Note Patient Name: Sara Arshad Today's Date: 12/06/2024 Missed Treatment Time and Reason [place] [phone] due to clarification for initiation of pt OT evaluation s/p CT brain this AM. HOLD mobilization at this time pending plan for replacing fx/implant. Will follow up s/p sx and/or when cleared by neurosx team. Gia Saldivar OT * Art Sanchez MD - 12/06/2024 11:04 AM CDT We are attempting to have a custom titanium implant made to replace the fractures bone flap as this will be infection resistant. We are working on timing but will continue ABX. * Darlene William LMSW - 12/06/2024 10:02 AM CDT Plan A: Hm No Needs (pt is not open to therapy at time of DPA) Plan B: Op PT, pending evals CM asked whether patient will have adequate help at home after discharge: family is willing and has capacity to assist and care for patient; able to assist with f/u appointments if needed, including transportation. Patient's/Family's response: Yes 12/06/24 0900 Readmission Questions Is this hospital visit a Readmission? No Discharge Planning Information Source Self Permanent Residence Private residence Permanent Residence Type Single story home Household Members Spouse/significant other (Michael Rausch, ) Support Systems Spouse/significant other Arrived From Permanent Residence Barriers to Discharge Home pending med noel, evals In the last 12 months, was there a time when you were not able to pay the mortgage or rent on time? N In the past 12 months, how many times have you moved where you were living? 0 At any time in the past 12 months, were you homeless or living in a mcc (including now)? N In the past 12 months has the electric, gas, oil, or water [employer] threatened to shut off services in your home? No Within the past 12 months, you worried that your food would run out before you got the money to buy more. Never true Within the past 12 months, the food you bought just didn't last and you didn't have money to get more. Never true Assistive Devices None Assistance Needed indp prior to admit Patient expects to be discharged to: Hm Indp vs Op pt Expected Discharge Disposition Home Caregiver assessment needed? No Reason No caregiver assessment needed Patient Independent Anticipated Services at Discharge None In the past 12 months, has lack of transportation kept you from medical appointments or from getting medications? no In the past 12 months, has lack of transportation kept you from meetings, work, or from getting things needed for daily living? No Does the patient need discharge transport arranged? No Discharge Planning Comments CHANDRIKA completed DPA with Pt who confirmed information on facesheet. Pt resides at home with spouse, Michael Rausch, and their son. Pt is independent with ADLS, no use of DME. PCP is [facility] in [place] and pharmacy is [facility] at [address] in [place]. Pt has no unmet SDOH needs. Supports and transportation provided by family. SW explained role, discharge planning and possible options at discharge.Pt reports she does not need therapy or anything. Pt pending evals. SW to follow up as needed. Discharge Planning Status Initial Assessment Complete Darlene William LMSW Recreation Activities Coordinator Case Management Department (O)[phone] (F)[phone] [email or web address] * Suellen Beltran PharmD - 12/06/2024 4:04 AM CDT Clinician Notes: Vancomycin Dosing and Monitoring Protocol - Initial Consult Note Consulting Physician: Ronaldo Shine MD Indication for Vancomycin: Open Fracture/Wound Prophylaxis AUC Goal: 400 - 600 mg h/L Vancomycin Start Date: 12/06 Duration: 7 days Plan: Vancomycin 1250 mg every 12 hours Next level 12/06 @ 0900 MRSA PCR: Not Indicated Thank you for allowing us to participate in the care of this patient. We will continue to monitor and adjust vancomycin therapy as needed. Recommended Dose: 1250 mg IV over 1.5 hours every 12 hours for 2 days Next Dose At: 16:00 on Dec 06 2024 Dosing Interval: 12 hours Infusion Length: 1.5 hours Dose Valid For: 2 days only Dose Recommendation Method: Clinician-selected target (Population model) Target Outcome: AUC24: 450 mcg.h/mL Predicted Outcome: AUC24: 441.1 mcg.h/mL Predicted Peak: 26.6 mcg/mL Predicted Trough: 11.8 mcg/mL Predicted AUC24: 441.1 mcg.h/mL Predicted AUC12: 220.6 mcg.h/mL [facility] [id number] 08:57:35Pending Results Scheduled Orders Name Type Priority Associated Diagnoses Orde r Schedule Magnesium Level Lab Add-On Every Mon /Wed/Fri (Lab) for 4 Weeks starting 12/09/2024 until 01/03/2025 Phosphorus Level Lab Add-On Every Mo /Mon/Mon (Lab) for 4 Weeks starting 12/09/2024 until 01/03/2025 UA with microscopic no culture Lab STAT STAT (Lab) for 1 Occurrences starting 12/06/2024 until 12/06/2024 Troponin I High Sensitivity Panel with 1 hour reflex Lab STAT STAT (Lab) for 1 Occurrences starting 12/06/2024 until 12/06/2024 Troponin I High Sensitivity Careset (Baseline) Lab Timed Once for 1 Occur rences starting 12/06/2024 until 12/06/2024 Comprehensive Metabolic Panel Lab Routine Morning draw (La b) for 3 Occurrences starting 12/07/2024 until 12/09/2024, 2 completed Health Maintenance Due Date Last Done Comments Annual Physical 01/21/1995 Varicella Vaccines (1 of 2 - 13+ 2-dose series) 01/21/2005 DTaP/Tdap/Td Vaccines (1 - Tdap) 01/21/2011 Hepatitis A Vaccines (1 of 2 - Risk 2-dose series) 01/21/2011 Pneumococcal Vaccine: Pediat rics (0 to 5 Years) and At-Risk Patients (6 to 64 Years) (1 of 2 - PCV) 01/21/2011 Pap Smear 01/21/2013 Cervical Cancer Screening 01/21/2022 HPV/Cotest 01/21/2022 HPV Vaccines (2 - 3-dose SCD M series) 03/17/2022 02/17/2022 Hepatitis B Vaccines (2 of 2 - CpG 2-dose series) 03/17/2022 02/17/2022 Influenza Vaccine (#1) 2025 02/17/2022 Lipid Panel 12/06/2029 12/06/2024 Respiratory Syncytial Virus (RSV) Adult Series (1 - 1-dose 75+ series) 01/21/2067 HIB Vaccines Aged Out No longer eligi ble based on patient's age to complete this topic IPV Vaccines Aged Out No longer eligi ble based on patient's age to complete this topic Meningococcal Vaccine Aged Out No mariam eduin eligible based on patient's age to complete this topic Rotavirus Vaccines Aged Out No longer eligible based on patient's age to complete this topic [facility] CenterVwyscbo0644-25-65 08:57:35 [facility] CenterBatgakq9813-41-55 08:57:35 Diagnosis Subdural hematoma (HCC) - Primary Subdural hemorrhage Skull fracture (CMS/HCC) (HCC) Other closed skull fracture without mention of intracranial injury, unspecified state of consciousness [facility] CenterCjdqren4107-11-76 08:57:35 [facility] CenterJirbpbr9773-45-39 08:54:23 Images from the original note were not included. [id number] What Is a Subdural Hematoma? A subdural hematoma is a buildup of blood in a space between the layers of tissue that surround your brain. Your brain sits inside your bony skull. Inside your skull are several layers, called the meninges. These layers cover and protect the brain. The layer just inside the skull is called the dura mater, or dura. It's a tough, fibrous layer of tissue. On the inside of the dura is a layer called the arachnoid. When blood builds up between these layers, it can cause severe problems. A subdural hematoma is a medical emergency. Call 911 This condition is a medical emergency. Call 911 if you have the symptoms listed below. What causes a subdural hematoma? The most common cause is a head injury. This may be from a fall, a car crash, a sports injury, or a violent attack. The sudden impact can damage the blood vessels inside the dura. This causes them to rip and bleed. Small arteries may break in the subdural space. In some people, the brain shrinks. This is often from aging. The subdural space gets bigger. This can make the blood vessels more likely to break. Another cause is taking medicine to prevent blood clots. These include warfarin, aspirin, and other blood thinners. Rare causes include leaking of cerebrospinal fluid, a tumor, or rupture of a weak part of a blood vessel (cerebral aneurysm). Symptoms of a subdural hematoma It may cause symptoms right away. Or it may grow slowly and cause symptoms weeks later. Symptoms may include: ? A headache. ? Nausea or vomiting. ? Loss of consciousness. ? Confusion. ? Dizziness. ? Balance or walking problems. ? Speech problems. ? Vision problems. ? Sleepiness. ? Weakness or numbness that may come and go. ? Seizures. Treating a subdural hematoma The most common treatment is surgery. This helps to relieve the pressure on the brain. There are two surgeries used to treat hematomas. The surgeon can: ? Drill a hole in the skull to allow the blood to drain (sage hole). ? Cut a flap of skull open to remove the blood (craniotomy). If the subdural hematoma is small, your doctor may not do surgery right away. Instead, they may closely watch it. In this case, you will likely stay in the hospital. You may: ? Have repeated CT scans to watch the hematoma. ? Have a tube (catheter) inserted in your head to measure your intracranial pressure. ? Take medicines to control symptoms. ? Need to stop blood-thinner medicine. ? Get vitamin K therapy to reverse the effects of some blood-thinner medicines. Last Reviewed Date: 2024 00:00:00 ? [id number] [employer]. All rights reserved. This information is not intended as a substitute for professional medical care. Always follow your healthcare professional's instructions. T [facility]Bet[facility] Hospitalfelicita DavisWsqxmbj4094-29-00 07:44:14 Discharge instructions and paperwork was given to patient. Patient is to follow up with Neurosurgery clinic in 2 weeks upon discharge. AM nurse is to remove IV before patient leaves with spouse. T [facility] [id number] 07:17:46 Images from the original note were not included. [id number] What Is a Subdural Hematoma? A subdural hematoma is a buildup of blood in a space between the layers of tissue that surround your brain. Your brain sits inside your bony skull. Inside your skull are several layers, called the meninges. These layers cover and protect the brain. The layer just inside the skull is called the dura mater, or dura. It's a tough, fibrous layer of tissue. On the inside of the dura is a layer called the arachnoid. When blood builds up between these layers, it can cause severe problems. A subdural hematoma is a medical emergency. Call 911 This condition is a medical emergency. Call 911 if you have the symptoms listed below. What causes a subdural hematoma? The most common cause is a head injury. This may be from a fall, a car crash, a sports injury, or a violent attack. The sudden impact can damage the blood vessels inside the dura. This causes them to rip and bleed. Small arteries may break in the subdural space. In some people, the brain shrinks. This is often from aging. The subdural space gets bigger. This can make the blood vessels more likely to break. Another cause is taking medicine to prevent blood clots. These include warfarin, aspirin, and other blood thinners. Rare causes include leaking of cerebrospinal fluid, a tumor, or rupture of a weak part of a blood vessel (cerebral aneurysm). Symptoms of a subdural hematoma It may cause symptoms right away. Or it may grow slowly and cause symptoms weeks later. Symptoms may include: ? A headache. ? Nausea or vomiting. ? Loss of consciousness. ? Confusion. ? Dizziness. ? Balance or walking problems. ? Speech problems. ? Vision problems. ? Sleepiness. ? Weakness or numbness that may come and go. ? Seizures. Treating a subdural hematoma The most common treatment is surgery. This helps to relieve the pressure on the brain. There are two surgeries used to treat hematomas. The surgeon can: ? Drill a hole in the skull to allow the blood to drain (sage hole). ? Cut a flap of skull open to remove the blood (craniotomy). If the subdural hematoma is small, your doctor may not do surgery right away. Instead, they may closely watch it. In this case, you will likely stay in the hospital. You may: ? Have repeated CT scans to watch the hematoma. ? Have a tube (catheter) inserted in your head to measure your intracranial pressure. ? Take medicines to control symptoms. ? Need to stop blood-thinner medicine. ? Get vitamin K therapy to reverse the effects of some blood-thinner medicines. Last Reviewed Date: 2024 00:00:00 ? [id number] [employer]. All rights reserved. This information is not intended as a substitute for professional medical care. Always follow your healthcare professional's instructions. [facility]2025-07-26 20:28:07 The patient is Moderately Stable - Low risk of patient condition declining or worsening The patient's goals for the shift include rest The clinical goals for the shift include montior neuro assessment, maintain patient safety T [facility] [id number] 18:06:27 Educated patient on fall precautions and patient verbalized understanding. Patient declined blue fall mat. T Giovanna Rubalcava [facility]2025-07-26 17:48:16 Patient arrived at the unit transferred from [facility]. Patient's personal belongings include a personal handbag are at bedside with her. Patient is stable upon arrival. Completed head to toe assessment. [facility]2025-07-26 15:40:01 The patient is Moderately Stable - Low risk of patient condition declining or worsening The patient's goals for the shift include rest The clinical goals for the shift include montior neuro assessment, maintain patient safety Over the shift, the patient did not make progress toward the following goals. Barriers to progression include IV antibiotics. Recommendations to address these barriers include N/A. [facility]2025-07-26 04:38:41 Problem: Pain - Adult Goal: Verbalizes/displays adequate comfort level or baseline comfort level Outcome: Ongoing Problem: Safety - Adult Goal: Free from fall injury Outcome: Ongoing Problem: Discharge Planning Goal: Discharge to home or other facility with appropriate resources Outcome: Ongoing Problem: Chronic Conditions and Co-morbidities Goal: Patient's chronic conditions and co-morbidity symptoms are monitored and maintained or improved Outcome: Ongoing Problem: Knowledge Deficit Goal: Patient/family/caregiver demonstrates understanding of disease process, treatment plan, medications, and discharge instructions Outcome: Ongoing [facility]2025-07-25 18:39:46 Patient transported to [facility]. Patient belongings at bedside with patient, [facility] Patient stable upon departure from unit. [facility]2025-07-25 17:59:10 Report called. Updated on todays happening and neuro assessment. Patient aware of transfer orders. Pending transport at this time. [facility]2025-07-25 07:11:39 The patient is Moderately Stable - Low risk of patient condition declining or worsening The patient's goals for the shift include neuro monitoring The clinical goals for the shift include SBP 100-150 Problem: Pain - Adult Goal: Verbalizes/displays adequate comfort level or baseline comfort level Outcome: Ongoing Problem: Safety - Adult Goal: Free from fall injury Outcome: Ongoing Problem: Discharge Planning Goal: Discharge to home or other facility with appropriate resources Outcome: Ongoing Problem: Chronic Conditions and Co-morbidities Goal: Patient's chronic conditions and co-morbidity symptoms are monitored and maintained or improved Outcome: Ongoing Problem: Knowledge Deficit Goal: Patient/family/caregiver demonstrates understanding of disease process, treatment plan, medications, and discharge instructions Outcome: Ongoing Problem: Infection Goal: Signs and symptoms of infections are decreased or avoided Outcome: Ongoing Problem: Potential for Falls Goal: I will remain free of falls Outcome: Ongoing [facility]2025-07-25 04:40:21 Problem: Pain - Adult Goal: Verbalizes/displays adequate comfort level or baseline comfort level 12/06/2024439 by Israel Sparks RN Outcome: Ongoing 12/06/2024 043 by Israel Sparks RN Outcome: Ongoing Problem: Safety - Adult Goal: Free from fall injury 12/06/2024 0440 by Israel Sparks RN Outcome: Ongoing 12/06/2024436 by Israel Sparks RN Outcome: Ongoing Problem: Discharge Planning Goal: Discharge to home or other facility with appropriate resources 12/06/2024439 by Israel Sparks RN Outcome: Ongoing 12/06/2024436 by Israel Sparks RN Outcome: Ongoing Problem: Chronic Conditions and Co-morbidities Goal: Patient's chronic conditions and co-morbidity symptoms are monitored and maintained or improved 12/06/2024439 by Irsael Sparks RN Outcome: Ongoing 12/06/2024436 by Israel Sparks RN Outcome: Ongoing Problem: Knowledge Deficit Goal: Patient/family/caregiver demonstrates understanding of disease process, treatment plan, medications, and discharge instructions 12/06/2024439 by Israel Sparks RN Outcome: Ongoing 12/06/2024436 by Israel Sparks RN Outcome: Ongoing Problem: Infection Goal: Signs and symptoms of infections are decreased or avoided 12/06/2024439 by Israel Sparks RN Outcome: Ongoing 12/06/2024436 by Israel Sparks RN Outcome: Ongoing Problem: Potential for Falls Goal: I will remain free of falls [facility] 04:37:55 Problem: Pain - Adult Goal: Verbalizes/displays adequate comfort level or baseline comfort level Outcome: Ongoing Problem: Safety - Adult Goal: Free from fall injury Outcome: Ongoing Problem: Discharge Planning Goal: Discharge to home or other facility with appropriate resources Outcome: Ongoing Problem: Chronic Conditions and Co-morbidities Goal: Patient's chronic conditions and co-morbidity symptoms are monitored and maintained or improved Outcome: Ongoing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 [id number] 17:02:39Scheduled Orders Scheduled Referrals Name Type Priority Associated Diagnoses Order Schedule Ambulatory referral to Physical Therapy Outpatient Referral Routine Traumatic brain injury with loss of consciousness, initial encounter ([facility]) ([facility]) Expected: 05/21/2024 (Approximate), Expires: 05/21/2025 Ambulatory referral to Occupational Therapy Outpatient Referral Routine Traumatic brain injury with loss of consciousness, initial encounter ([facility]) ([facility]) Expected: 05/21/2024 (Approximate), Expires: 05/21/2025 Health Maintenance Due Date Last Done Comments Annual Physical 01/21/1995 Varicella Vaccines (1 of 2 - 13+ 2-dose series) 01/21/2005 DTaP/Tdap/Td Vaccines (1 - Tdap) 01/21/2011 Pap Smear 01/21/2013 Cervical Cancer Screening 01/21/2022 HPV/Cotest 01/21/2022 HPV Vaccines (2 - 3-dose SCD M series) 03/17/2022 02/17/2022 Hepatitis B Vaccines (2 of 2 - CpG 2-dose series) 03/17/2022 02/17/2022 Influenza Vaccine (#1) 2024 02/17/2022 HIB Vaccines Aged Out No longer eligi ble based on patient's age to complete this topic Hepatitis A Vaccines Aged Out No long er eligible based on patient's age to complete this topic IPV Vaccines Aged Out No longer eligi ble based on patient's age to complete this topic Meningococcal Vaccine Aged Out No mariam eduin eligible based on patient's age to complete this topic Pneumococcal Vaccine: Pediat rics (0 to 5 Years) and At-Risk Patients (6 to 64 Years) Aged Out No longer eligible b ased on patient's age to complete this topic Rotavirus Vaccines Aged Out No longer eligible based on patient's age to complete this topic [facility] [id number] 17:02:39 [place] [id number] 17:02:39 Diagnosis SDH (subdural hematoma) (HCC) - Primary Subdural hemorrhage Subdural hematoma (HCC) Subdural hemorrhage Traumatic brain injury with loss of consciousness, initial encounter (CMS/HCC) (HCC) [facility] [id number] 17:02:39 [facility] [id number] 16:45:53 Images from the original note were not included. [id number] Levetiracetam Brand Name(s): Elepsia? XR, Keppra?, Keppra? XR, Spritam?; also available generically WHY is this medicine prescribed? Levetiracetam is used alone and along with other medications to control partial-onset seizures (seizures that involve only one part of the brain) in adults, children, and infants 1 month of age or older. Levetiracetam is also used in combination with other medications to treat seizure in adults and children 12 years of age or older with juvenile myoclonic epilepsy. Levetiracetam is also used in combination with other medications to treat primary generalized tonic-clonic seizures (formerly known as a grand mal seizure; seizure that involves the entire body) in adults and children 6 years of age or older with epilepsy. Levetiracetam is in a class of medications called anticonvulsants. It works by decreasing abnormal excitement in the brain. HOW should this medicine be used? Levetiracetam comes as a solution (liquid), an immediate-release tablet, an extended-release (long-acting) tablet, and as a tablet for suspension (a tablet to take with liquid) to take by mouth. The solution, immediate-release tablet, and tablet for suspension are usually taken twice a day, once in the morning and once at night, with or without food. The extended-release tablets are usually taken once daily with or without food. Try to take levetiracetam at around the same time(s) every day. Follow the directions on your prescription label carefully, and ask your doctor or pharmacist to explain any part you do not understand. Take levetiracetam exactly as directed. Do not take more or less of it or take it more often than prescribed by your doctor. Swallow the levetiracetam immediate-release and extended-release tablets whole; do not split, chew, or crush them. Take the whole levetiracetam tablets for suspension according to directions; do not split, chew, or crush them. To take levetiracetam tablet(s) for suspension, use dry hands to peel the foil from the blister packaging; do not try to push the tablets through the foil. Immediately take out the number of tablet(s) that your doctor has told you to take and place the tablet(s) on your tongue with a sip of liquid. Once the tablet completely dissolves on your tongue, swallow the mixture. The tablet(s) may take about 10 seconds to dissolve. You can also take levetiracetam tablets for suspension by dissolving them in a liquid. Place the number of tablet(s) your doctor has told you to take into a cup and add a small amount of liquid (about 1 tablespoon [15 mL] or enough to cover the medication in a cup). Swirl the cup gently. After the tablet(s) for suspension dissolve, drink the mixture right away. If there is any medication left in the cup, add some more liquid and swirl the cup gently. Drink the mixture water right away to be sure that you swallow all of the medication. If you are taking the levetiracetam oral solution, do not use a household spoon to measure your dose. You might not get the right amount of medication. Ask your doctor or pharmacist to recommend a medicine dropper, spoon, cup, or syringe and to show you how to use it to measure your medication. Your doctor may start you on a low dose of levetiracetam and gradually increase your dose, not more often than once every 2 weeks. Levetiracetam controls epilepsy but does not cure it. Continue to take levetiracetam even if you feel well. Do not stop taking levetiracetam without talking to your doctor, even if you experience side effects such as unusual changes in behavior or mood. If you suddenly stop taking levetiracetam, your seizures may become worse. Your doctor will probably decrease your dose gradually. Your doctor or pharmacist will give you the corn cutter operator's patient information sheet (Medication Guide) when you begin treatment with levetiracetam and each time you refill your prescription. Read the information carefully and ask your doctor or pharmacist if you have any questions. You can also visit the Food and Drug Administration (FDA) website (https://www.fda.gov/Drugs) or the corn cutter operator's website to obtain the Medication Guide. Are there OTHER USES for this medicine? This medication may be prescribed for other uses; ask your doctor or pharmacist for more information. What SPECIAL PRECAUTIONS should I follow? Before taking levetiracetam, ? tell your doctor and pharmacist if you are allergic to levetiracetam, any other medications, or any of the ingredients in levetiracetam products. Ask your pharmacist or check the Medication Guide for a list of the ingredients. ? tell your doctor and pharmacist what prescription and nonprescription medications, vitamins, nutritional supplements, and herbal products you are taking or plan to take. Your doctor may need to change the doses of your medications or monitor you carefully for side effects. ? tell your doctor if you have or have ever had kidney disease, depression, mood problems, or suicidal thoughts or behavior. ? tell your doctor if you are , plan to become , or are . If you become while taking levetiracetam, call your doctor. ? you should know that levetiracetam may make you dizzy or drowsy. Do not drive a car or operate machinery until you know how this medication affects you. ? you should know that your mental health may change in unexpected ways and you may become suicidal (thinking about harming or killing yourself or planning or trying to do so) while you are taking levetiracetam for the treatment of epilepsy, mental illness, or other conditions. A small number of adults and children 5 years of age and older (about 1 in 500 people) who took anticonvulsants such as levetiracetam to treat various conditions during clinical studies became suicidal during their treatment. Some of these people developed suicidal thoughts and behavior as early as one week after they started taking the medication. There is a risk that you may experience changes in your mental health if you take an anticonvulsant medication such as levetiracetam, but there may also be a risk that you will experience changes in your mental health if your condition is not treated. You and your doctor will decide whether the risks of taking an anticonvulsant medication are greater than the risks of not taking the medication. You, your family, or your caregiver should call your doctor right away if you experience any of the following symptoms: panic attacks; agitation or restlessness; nervousness, new or worsening irritability, anxiety, or depression; acting on dangerous impulses; difficulty falling or staying asleep; aggressive, angry, or violent behavior; jessee (frenzied, abnormally excited mood); talking or thinking about wanting to hurt yourself or end your life; withdrawing from friends and family; preoccupation with and dying; giving away prized possessions; or any other unusual changes in behavior or mood. Be sure that your family or caregiver knows which symptoms may be serious so they can call the doctor if you are unable to seek treatment on your own. What SPECIAL DIETARY instructions should I follow? Unless your doctor tells you otherwise, continue your normal diet. What should I do IF I FORGET to take a dose? If it has only been a few hours since the time you were scheduled to take the dose, take the missed dose as soon as you remember it. However, if it is almost time for the next dose, skip the missed dose and continue your regular dosing schedule. Do not take a double dose to make up for a missed one. What SIDE EFFECTS can this medicine cause? Levetiracetam may cause side effects. Tell your doctor if any of these symptoms are severe or do not go away: ? weakness ? unsteady walking ? dizziness ? confusion ? irritability ? aggression ? headache ? loss of appetite ? vomiting ? diarrhea ? constipation ? excessive sleepiness ? joint pain ? neck pain ? double vision ? nasal congestion Some side effects can be serious. If you experience any of the following symptoms or those listed in the SPECIAL PRECAUTIONS section, call your doctor immediately: ? rash, fever, swollen lymph nodes, facial swelling, shortness of breath, yellowing of skin or whites of the eyes, dark urine ? seizures that are worse or different than the seizures you had before ? fever, sore throat, or other signs of infection ? blisters on skin ? hives ? itching ? swelling of the face, throat, tongue, lips. and eyes ? difficulty swallowing or breathing ? loss of balance or coordination Levetiracetam may cause other side effects. Call your doctor if you have any unusual problems while taking this medication. If you experience a serious side effect, you or your doctor may send a report to the Food and Drug Administration's (FDA) MedWatch Adverse Event Reporting program online (https://www.fda.gov/Safety/MedWatch) or by phone ( ). What should I know about STORAGE and DISPOSAL of this medication? Keep this medication in the container it came in, tightly closed, and out of reach of children. Store it at room temperature and away from light, excess heat and moisture (not in the bathroom). Unneeded medications should be disposed of in special ways to ensure that pets, children, and other people cannot consume them. However, you should not flush this medication down the toilet. Instead, the best way to dispose of your medication is through a medicine take-back program. Talk to your pharmacist or contact your local garbage/recycling department to learn about take-back programs in your community. See the FDA's Safe Disposal of Medicines website (https://goo.gl/c4Rm4p) for more information if you do not have access to a take-back program. It is important to keep all medication out of sight and reach of children as many containers (such as weekly pill minders and those for eye drops, creams, patches, and inhalers) are not child-resistant and young children can open them easily. To protect young children from poisoning, always lock safety caps and immediately place the medication in a safe location -- one that is up and away and out of their sight and reach. https://www.upandaway.org What should I do in case of OVERDOSE? In case of overdose, call the poison control helpline at . Information is also available online at https://www.poisonhelp.org/help. If the victim has collapsed, had a seizure, has trouble breathing, or can't be awakened, immediately call emergency services at 911. Symptoms of overdose may include the following: ? drowsiness ? agitation ? aggression ? decreased consciousness or loss of consciousness (coma) ? difficulty breathing What OTHER INFORMATION should I know? Keep all appointments with your doctor. If an or child younger than 4 years of age receives levetiracetam, your doctor will check their blood pressure regularly. Do not let anyone else take your medication. Ask your pharmacist any questions you have about refilling your prescription. It is important for you to keep a written list of all of the prescription and nonprescription ([id number]) medicines you are taking, as well as any products such as vitamins, minerals, or other dietary supplements. You should bring this list with you each time you visit a doctor or if you are admitted to a hospital. It is also important information to carry with you in case of emergencies. This report on medications is for your information only, and is not considered individual patient advice. Because of the changing nature of drug information, please consult your physician or pharmacist about specific clinical use. The [employer] represents that the information provided hereunder was formulated with a reasonable standard of care, and in conformity with professional standards in the field. [employer] makes no representations or warranties, express or implied, including, but not limited to, any implied warranty of merchantability and/or fitness for a particular purpose, with respect to such information and specifically disclaims all such warranties. Users are advised that decisions regarding drug therapy are complex medical decisions requiring the independent, informed decision of an appropriate health health care liaison, and the information is provided for informational purposes only. The entire monograph for a drug should be reviewed for a thorough understanding of the drug's actions, uses and side effects. [employer] does not endorse or recommend the use of any drug. The information is not a substitute for medical care. AHFS? Patient Medication Information?. ? Copyright, 2023. [employer]?, [address], [address], [place], [place]. All Rights Reserved. Duplication for commercial use must be authorized by [facility]. Selected Revisions: September 02, 2023. AHFS? Patient Medication Information?. ? Copyright, 2024 [facility] [id number] 16:45:46 Images from the original note were not included. [id number] Citalopram Brand Name(s): Celexa?; also available generically IMPORTANT WARNING: A small number of children, teenagers, and young adults (up to 24 years of age) who took antidepressants ('mood elevators') such as citalopram during clinical studies became suicidal (thinking about harming or killing oneself or planning or trying to do so). Children, teenagers, and young adults who take antidepressants to treat depression or other mental illnesses may be more likely to become suicidal than children, teenagers, and young adults who do not take antidepressants to treat these conditions. However, experts are not sure about how great this risk is and how much it should be considered in deciding whether a child or teenager should take an antidepressant. Children younger than 18 years of age should not normally take citalopram, but in some cases, a doctor may decide that citalopram is the best medication to treat a child's condition. You should know that your mental health may change in unexpected ways when you take citalopram or other antidepressants even if you are an adult over 24 years of age. You may become suicidal, especially at the beginning of your treatment and any time that your dose is increased or decreased. You, your family, or your caregiver should call your doctor right away if you experience any of the following symptoms: new or worsening depression; thinking about harming or killing yourself, or planning or trying to do so; extreme worry; agitation; panic attacks; difficulty falling asleep or staying asleep; aggressive behavior; irritability; acting without thinking; severe restlessness; and frenzied abnormal excitement. Be sure that your family or caregiver knows which symptoms may be serious so they can call the doctor if you are unable to seek treatment on your own. Your healthcare provider will want to see you often while you are taking citalopram, especially at the beginning of your treatment. Be sure to keep all appointments for office visits with your doctor. The doctor or pharmacist will give you the corn cutter operator's patient information sheet (Medication Guide) when you begin treatment with citalopram. Read the information carefully and ask your doctor or pharmacist if you have any questions. You also can obtain the Medication Guide from the FDA website: https://www.fda.gov/Drugs/DrugSafety/emc823269.htm. No matter your age, before you take an antidepressant, you, your parent, or your caregiver should talk to your doctor about the risks and benefits of treating your condition with an antidepressant or with other treatments. You should also talk about the risks and benefits of not treating your condition. You should know that having depression or another mental illness greatly increases the risk that you will become suicidal. This risk is higher if you or anyone in your family has or has ever had bipolar disorder (mood that changes from depressed to abnormally excited) or jessee (frenzied, abnormally excited mood), or has thought about or attempted suicide. Talk to your doctor about your condition, symptoms, and personal and family medical history. You and your doctor will decide what type of treatment is right for you. WHY is this medicine prescribed? Citalopram is used to treat depression. Citalopram is in a class of antidepressants called selective serotonin reuptake inhibitors (SSRIs). It works by increasing the amount of serotonin, a natural substance in the brain that helps maintain mental balance. HOW should this medicine be used? Citalopram comes as a tablet and a solution (liquid) to take by mouth. It is usually taken once a day, in the morning or in the evening, with or without food. Take citalopram at around the same time every day. Follow the directions on your prescription label carefully, and ask your doctor or pharmacist to explain any part you do not understand. Take citalopram exactly as directed. Do not take more or less of it or take it more often than prescribed by your doctor. Your doctor may start you on a low dose of citalopram and gradually increase your dose, not more often than once a week. It may take 1 to 4 weeks before you notice the full benefit of citalopram. Continue to take citalopram even if you feel well. Do not stop taking citalopram without talking to your doctor. Your doctor will probably decrease your dose gradually. If you suddenly stop taking citalopram, you may experience withdrawal symptoms such as mood changes, irritability, agitation, dizziness, numbness, tingling or electric shock-like sensations in the hands or feet, anxiety, confusion, headache, tiredness, nausea, sweating, shaking, frenzied or abnormally excited mood, and difficulty falling asleep or staying asleep. Tell your doctor if you experience any of these symptoms while you are decreasing your dose of citalopram or soon after you stop taking citalopram. Are there OTHER USES for this medicine? Citalopram is also sometimes used to treat obsessive-compulsive disorder (bothersome thoughts that won't go away and the need to perform certain actions over and over), eating disorders, alcoholism, panic disorder (condition that causes sudden attacks of extreme fear with no apparent cause), premenstrual dysphoric disorder (a group of physical and emotional symptoms that occur before the menstrual period each month), social anxiety disorder (extreme fear of interacting with others or performing in front of others that interferes with normal life), posttraumatic stress disorder, tingling in the hands and feet caused by diabetes, and certain male sexual problems. Talk to your doctor about the possible risks of using this medication for your condition. This medication may be prescribed for other uses; ask your doctor or pharmacist for more information. What SPECIAL PRECAUTIONS should I follow? Before taking citalopram, ? tell your doctor and pharmacist if you are allergic to citalopram, escitalopram (Lexapro), any other medications, or any of the ingredients in the citalopram product you are taking. Talk to your pharmacist or check the Medication Guide for a list of the ingredients. ? tell your doctor or pharmacist if you are taking the following medications or have stopped taking them within the past two weeks: pimozide (Orap) or a monoamine oxidase (MAO) inhibitor such as isocarboxazid (Marplan), linezolid (Zyvox), methylene blue, phenelzine (Nardil), selegiline (Emsam, Zelapar), or tranylcypromine (Parnate). ? you should know that citalopram is very similar to another SSRI, escitalopram (Lexapro). You should not take these two medications together. ? the following nonprescription or herbal products may interact with citalopram: Ilsa's wort; tryptophan; cimetidine (Tagamet); aspirin and nonsteroidal anti-inflammatory drugs (NSAIDS) such as ibuprofen (Advil, Motrin, others) and naproxen (Aleve). Be sure to let your doctor and pharmacist know that you are taking these medications before you start taking citalopram. Do not start any of these medications while taking citalopram without discussing with your healthcare provider. ? tell your doctor if you drink or have ever drunk large amounts of alcohol or use or have ever used street drugs or have ever overused prescription medications. Also tell your doctor if you or anyone in your family has or has ever had long QT syndrome (a rare heart problem that may cause irregular heartbeat, fainting, or sudden ),if you have recently had a heart attack, or if you have or have ever had a slow or irregular heartbeat, heart failure (condition in which the heart cannot pump enough blood to other parts of the body) or other heart conditions; high blood pressure; bleeding problems; stroke; low levels of magnesium, potassium, or sodium in your blood; seizures; or kidney or liver disease. ? tell your doctor if you are , especially if you are in the last few months of your , or if you plan to become or are breast-feeding. If you become while taking citalopram, call your doctor. Citalopram may cause problems in newborns following delivery if it is taken during the last months of . ? you should know that citalopram may make you drowsy and may affect your judgment, thinking, and movements. Do not drive a car or operate machinery until you know how this medication affects you. ? talk to your doctor about the safe use of alcoholic beverages during your treatment with citalopram. Alcohol can make the side effects of citalopram worse. ? you should know that citalopram may cause angle-closure glaucoma (a condition where the fluid is suddenly blocked and unable to flow out of the eye causing a quick, severe increase in eye pressure which may lead to a loss of vision). Talk to your doctor about having an eye examination before you start taking this medication. If you have nausea, eye pain, changes in vision, such as seeing colored rings around lights, and swelling or redness in or around the eye, call your doctor or get emergency medical treatment right away. What SPECIAL DIETARY instructions should I follow? Unless your doctor tells you otherwise, continue your normal diet. What should I do IF I FORGET to take a dose? Take the missed dose as soon as you remember it. However, if it is almost time for the next dose, skip the missed dose and continue your regular dosing schedule. Do not take a double dose to make up for a missed one. What SIDE EFFECTS can this medicine cause? Citalopram may cause side effects. Tell your doctor if any of these symptoms are severe or do not go away: ? nausea ? diarrhea ? constipation ? vomiting ? stomach pain ? heartburn ? decreased appetite ? weight loss ? increased sweating ? increased thirst ? frequent urination ? difficulty falling asleep or staying asleep ? drowsiness ? excessive tiredness ? yawning ? weakness ? uncontrollable shaking of a part of the body ? muscle or joint pain ? dry mouth ? sexual problems in males; decreased sex drive, inability to get or keep an erection, or delayed or absent ejaculation ? sexual problems in females; decreased sex drive, or delayed orgasm or inability to have an orgasm ? heavy menstrual periods ? runny nose Some side effects can be serious. If you experience any of the following symptoms, or those listed in the IMPORTANT WARNING or SPECIAL PRECAUTIONS sections, call your doctor immediately or get emergency medical treatment: ? chest pain ? shortness of breath ? dizziness ? fainting ? fever, sweating, confusion, fast or irregular heartbeat, severe muscle stiffness or twitching, agitation, hallucinations, loss of coordination, nausea, vomiting, or diarrhea ? coma (loss of consciousness) ? hives or blisters ? rash ? itching ? difficulty breathing or swallowing ? swelling of the face, throat, tongue, lips, eyes, hands, feet, ankles, or lower legs ? hoarseness ? unusual bleeding or bruising ? nose bleeding ? headache ? unsteadiness ? problems with thinking, concentration, or memory ? seizures Citalopram may decrease appetite and cause weight loss in children. Your child's doctor will watch his or her growth carefully. Talk to your child's doctor if you have concerns about your child's growth or weight while he or she is taking this medication. Talk to your child's doctor about the risks of giving citalopram to your child. Citalopram may cause other side effects. Call your doctor if you have any unusual problems while taking this medication. If you experience a serious side effect, you or your doctor may send a report to the Food and Drug Administration's (FDA) MedWatch Adverse Event Reporting program online (https://www.fda.gov/Safety/MedWatch) or by phone ( ). What should I know about STORAGE and DISPOSAL of this medication? Keep this medication in the container it came in, tightly closed, and out of reach of children. Store it at room temperature and away from excess heat and moisture (not in the bathroom). It is important to keep all medication out of sight and reach of children as many containers (such as weekly pill minders and those for eye drops, creams, patches, and inhalers) are not child-resistant and young children can open them easily. To protect young children from poisoning, always lock safety caps and immediately place the medication in a safe location -- one that is up and away and out of their sight and reach. https://www.upandaway.org Unneeded medications should be disposed of in special ways to ensure that pets, children, and other people cannot consume them. However, you should not flush this medication down the toilet. Instead, the best way to dispose of your medication is through a medicine take-back program. Talk to your pharmacist or contact your local garbage/recycling department to learn about take-back programs in your community. See the FDA's Safe Disposal of Medicines website (https://goo.gl/c4Rm4p) for more information if you do not have access to a take-back program. What should I do in case of OVERDOSE? In case of overdose, call the poison control helpline at . Information is also available online at https://www.poisonhelp.org/help. If the victim has collapsed, had a seizure, has trouble breathing, or can't be awakened, immediately call emergency services at 911. Symptoms of overdose may include the following: ? dizziness ? sweating ? nausea ? vomiting ? uncontrollable shaking of a part of the body ? drowsiness ? fast, irregular, or pounding heartbeat ? memory loss ? confusion ? seizures ? coma (loss of consciousness) ? fast breathing ? bluish color around mouth, fingers, or fingernails ? muscle pain ? dark-colored urine What OTHER INFORMATION should I know? Keep all appointments with your doctor and the laboratory. Your doctor may order certain laboratory tests and electrocardiograms (EKG; a test to monitor your heart rate and rhythm) before you start taking citalopram and during your treatment with this medication. Do not let anyone else take your medication. Ask your pharmacist any questions you have about refilling your prescription. It is important for you to keep a written list of all of the prescription and nonprescription (alap-eet-ilqeifr) medicines you are taking, as well as any products such as vitamins, minerals, or other dietary supplements. You should bring this list with you each time you visit a doctor or if you are admitted to a hospital. It is also important information to carry with you in case of emergencies. This report on medications is for your information only, and is not considered individual patient advice. Because of the changing nature of drug information, please consult your physician or pharmacist about specific clinical use. The [employer] represents that the information provided hereunder was formulated with a reasonable standard of care, and in conformity with professional standards in the field. The [employer] makes no representations or warranties, express or implied, including, but not limited to, any implied warranty of merchantability and/or fitness for a particular purpose, with respect to such information and specifically disclaims all such warranties. Users are advised that decisions regarding drug therapy are complex medical decisions requiring the independent, informed decision of an appropriate health health care liaison, and the information is provided for informational purposes only. The entire monograph for a drug should be reviewed for a thorough understanding of the drug's actions, uses and side effects. The [employer] does not endorse or recommend the use of any drug. The information is not a substitute for medical care. AHFS? Patient Medication Information?. ? Copyright, 2023. [employer]?, [address] [facility], [address] [place] [address]. All Rights Reserved. Duplication for commercial use must be authorized by [facility]. Selected Revisions: May 29, 2021. AHFS? Patient Medication Information?. ? Copyright, 2024 NTE Davis2025-01-07 16:45:39 Images from the original note were not included. 15816 What Is Traumatic Brain Injury? A traumatic brain injury (TBI) is a sudden jolt to your head that changes the way your brain works. The jolt could be caused by a blow to your head, a blast, or an object like a bullet or fragment entering your brain. Falls, fights, combat, sports, and motor vehicle accidents are other common causes. Types of TBI A TBI can be mild, moderate, or severe. Most TBIs are mild. Some medical groups refer to a mild TBI as a concussion. Other groups view concussion as a milder subset of TBI. If you have a mild TBI, you might be knocked out for a short time. Or you might just feel stunned for a while. With a moderate or severe TBI, you will be unconscious for longer. Your healthcare team will decide how serious your TBI is based on the symptoms at the time of the trauma, as well as afterward. A tool called the [place] Coma Scale is often used to rate the severity of TBI. Symptoms of TBI are unpredictable. This means you could have a mild TBI and actually have symptoms that last longer than someone with a more severe TBI. Types of damage When the brain strikes the skull or twists on the brain stem, brain tissue tears. This injury may then cause a second type of damage, such as bleeding or swelling in the brain. Healthcare providers try to control the second type of damage to help limit long-term problems. Symptoms of TBI Having a TBI can change your brain in many ways. A TBI can change the way you think, feel, act, and move. The symptoms depend on the part of your brain that is injured. Common symptoms of mild TBI can include: ? Headache ? Confusion ? Loss of consciousness ? Dizziness ? Blurry vision ? Ringing in your ears ? Feeling tired ? Loss of memory ? Mood or personality changes ? Trouble sleeping ? Being off balance ? Being bothered by bright light ? Feeling sick to your stomach (nausea) Symptoms of moderate or severe TBI may include all the symptoms of a mild TBI, plus any or all of these symptoms: ? Extended loss of consciousness ? Severe headache that doesn't go away ? Repeated vomiting ? Seizures ? Extreme sleepiness ? Slurred speech ? Weakness and numbness in your arms and legs ? Being very clumsy ? Being very irritable, restless, or confused Recovering from TBI Most people recover fully from a mild TBI. It may take days or weeks. If you have had more than one TBI, your recovery may take longer. Everyone?s brain is different. So your recovery time and treatments will depend on how your brain is healing. Here are some tips to help your recovery: ? Be honest with your healthcare team. Let them know about all your symptoms. ? Let your healthcare provider know right away if your symptoms are getting worse or new symptoms appear. ? Keep all your appointments and follow your healthcare provider's instructions carefully. ? Give your brain time to heal. Be patient and get plenty of rest. ? Don?t smoke, take drugs, or drink alcohol. ? Don?t take any medicines without checking with your healthcare provider first. This includes agsp-nya-xioyfxo medicines. ? Talk with your provider if you have problems managing your emotions, such as laughing and crying uncontrollably. The provider might advise that you take a new medicine. Recovery from a TBI is unpredictable and is different for each person. Many people can recover fully from a TBI, especially if it is mild. Remember that a TBI can change the way you think, feel, move, and act. The best way to recover is to let your family and healthcare team know about all your symptoms. Work closely with your healthcare team and give your brain time to heal. Last Reviewed Date: 2022 00:00:00 ? [id number] [employer]. All rights reserved. This information is not intended as a substitute for professional medical care. Always follow your healthcare professional's instructions. [facility]2025-01-07 16:45:19 Images from the original note were not included. 33274 What Is a Subdural Hematoma? A subdural hematoma is a buildup of blood on the surface of the brain. The blood builds up in a space between the layers that surround your brain. Your brain sits inside a bony skull. Inside your skull are several layers called the meninges. These layers cover and protect the brain. The layer just inside the skull is called the dura mater, or just dura. It's a tough, fibrous layer of tissue. On the inside of the dura is a layer called the arachnoid. When blood builds up between these layers, it can cause severe problems. A subdural hematoma is a medical emergency. Call 911 This condition is a medical emergency. Call 911 if you have the symptoms listed below. What causes a subdural hematoma? The most common cause is a head injury. This may be from a fall, a car crash, a sports injury, or violent attack. The sudden impact can strain the blood vessels inside the dura. This causes them to rip and bleed. Small arteries may break in the subdural space. In some people, the brain shrinks. This is often from aging. The subdural space gets bigger. This can make the blood vessels more likely to break. Another cause is taking medicine to prevent blood clots. These include warfarin, aspirin, and other blood thinners. Rare causes include leaking of cerebrospinal fluid, a tumor, or rupture of a weak part of a blood vessel (cerebral aneurysm). Symptoms of a subdural hematoma It may cause symptoms right away. Or it may grow slowly and cause symptoms weeks later. Symptoms may include: ? Headache ? Nausea or vomiting ? Loss of consciousness ? Confusion ? Dizziness ? Balance or walking problems ? Speech problems ? Vision problems ? Sleepiness ? Weakness or numbness that may come and go ? Seizures Treating a subdural hematoma The most common treatment is surgery. This helps to relieve the pressure on the brain. There are two surgeries to treat the hematoma: ? Drilling a hole in the skull to allow the blood to drain (sage hole) ? Cutting a flap of skull open to remove the blood (craniotomy) If the subdural hematoma is small, your doctor may not do surgery right away. Instead, they may closely watch it. In this case, you will likely stay in the hospital. You may need: ? Repeated CT scans to watch the hematoma ? A sensor inserted in your head to measure your intracranial pressure ? Medicines to control symptoms ? To stop blood-thinner medicine ? Vitamin K therapy to reverse the effects of some blood-thinner medicines Last Reviewed Date: 2021 00:00:00 ? [id number] [employer]. All rights reserved. This information is not intended as a substitute for professional medical care. Always follow your healthcare professional's instructions. [facility]2025-01-07 02:11:21 The patient is Moderately Stable - Low risk of patient condition declining or worsening The patient's goals for the shift include pain management The clinical goals for the shift include safety [facility]2025-01-06 12:27:02 The patient is Moderately Stable - Low risk of patient condition declining or worsening The patient's goals for the shift include pain management and tx to floor unit The clinical goals for the shift include map >65 Problem: Neurosensory - Adult Goal: Achieves stable or improved neurological status Outcome: Progressing [facility]2025-01-06 06:38:29 Patient's step mother spoke with me in regards to patient's condition. Privacy code was confirmed. Alexei and I spoke in regards to patient ambulating, voiding, maintaining alertness. Transfer orders for [facility]. All questions were answered. All concerns addressed. Alexei stated that she or patient's father Giselle might stay the night with the patient. Call lasted 5 mins and 35 secs [facility]2025-01-05 20:11:37 Problem: Neurosensory - Adult Goal: Achieves stable or improved neurological status Outcome: Ongoing Flowsheets (Taken 05/19/2024 1900) Achieves stable or improved neurological status: Assess for and report changes in neurological status Initiate measures to prevent increased intracranial pressure Maintain blood pressure and fluid volume within ordered parameters to optimize cerebral perfusion and minimize risk of hemorrhage Monitor temperature, glucose, and sodium. Initiate appropriate interventions as ordered Goal: Absence of seizures Outcome: Ongoing Flowsheets (Taken 05/19/20241899) Absence of seizures: Monitor for seizure activity. If seizure occurs, document type and location of movements and any associated apnea If seizure occurs, turn head to side and suction secretions as needed Administer anticonvulsants as ordered Support airway/breathing, administer oxygen as needed Diagnostic studies as ordered Goal: Remains free of injury related to seizures activity Outcome: Ongoing Flowsheets (Taken 05/19/20241899) Remains free of injury related to seizure activity: Maintain airway, patient safety and administer oxygen as ordered Monitor patient for seizure activity, document and report duration and description of seizure to Licensed Independent Practitioner If seizure occurs, turn patient to side and suction secretions as needed Reorient patient post seizure Instruct patient/family to notify RN of any seizure activity Instruct patient/family to call for assistance with activity based on assessment Seizure pads on all 4 side rails Goal: Achieves maximal functionality and self care Outcome: Ongoing Flowsheets (Taken 05/19/20241899) Achieves maximal functionality and self care: Monitor swallowing and airway patency with patient fatigue and changes in neurological status Encourage and assist patient to increase activity and self care with guidance from physical therapy/occupational therapy Encourage visually impaired, hearing impaired and aphasic patients to use assistive/communication devices Problem: Respiratory - Adult Goal: Achieves optimal ventilation and oxygenation Outcome: Ongoing Flowsheets (Taken 05/19/20241899) Achieves optimal ventilation and oxygenation: Assess for changes in respiratory status Assess for changes in mentation and behavior Position to facilitate oxygenation and minimize respiratory effort Oxygen supplementation based on oxygen saturation or arterial blood gases Initiate smoking cessation protocol as indicated Encourage broncho-pulmonary hygiene including cough, deep breathe, incentive spirometry Assess and instruct to report shortness of breath or any respiratory difficulty Respiratory therapy support as indicated Assess the need for suctioning and aspirate as needed Problem: Cardiovascular - Adult Goal: Maintains optimal cardiac output and hemodynamic stability Outcome: Ongoing Flowsheets (Taken 05/19/20241899) Maintains optimal cardiac output and hemodynamic stability: Monitor blood pressure and heart rate Monitor urine output and notify Licensed Independent Practitioner for values outside of normal range Assess for signs of decreased cardiac output Administer fluid and/or volume expanders as ordered Administer vasoactive medications as ordered For PPHN infants, administer sedation as ordered and minimize all controllable stressors. Goal: Absence of cardiac dysrhythmias or at baseline Outcome: Ongoing Flowsheets (Taken 05/19/20241899) Absence of cardiac dysrhythmias or at baseline: Monitor cardiac rate and rhythm Assess for signs of decreased cardiac output Administer antiarrhythmia medication and electrolyte replacement as ordered Problem: Skin/Tissue Integrity - Adult Goal: Skin integrity remains intact Outcome: Ongoing Flowsheets (Taken 05/19/20241899) Skin integrity remains intact: Monitor for areas of redness and/or skin breakdown Assess vascular access sites hourly Every 4-6 hours minimum: Change oxygen saturation probe site Every 4-6 hours: If on nasal continuous positive airway pressure, respiratory therapy assesses nares and determine need for appliance change or resting period Goal: Incisions, wounds, or drain sites healing without S/S of infection Outcome: Ongoing Flowsheets (Taken 05/19/20241899) Incisions, wounds, or drain sites healing without sign and symptoms of infection: ADMISSION and DAILY: Assess and document risk factors for pressure ulcer development TWICE DAILY: Assess and document skin integrity TWICE DAILY: Assess and document dressing/incision, wound bed, drain sites and surrounding tissue Implement wound care per orders Initiate isolation precautions as appropriate Initiate pressure ulcer prevention bundle as indicated Goal: Oral mucous membranes remain intact Outcome: Ongoing Flowsheets (Taken 05/19/20241899) Oral mucous membranes remain intact: Assess oral mucosa and hygiene practices Implement preventative oral hygiene regimen Implement oral medicated treatments as ordered Problem: Musculoskeletal - Adult Goal: Return mobility to safest level of function Outcome: Ongoing Flowsheets (Taken 05/19/20241899) Return mobility to safest level of function: Assess patient stability and activity tolerance for standing, transferring and ambulating with or without assistive devices Ensure adequate protection for wounds/incisions during mobilization Obtain physical therapy/occupational therapy consults as needed Apply continuous passive motion per provider or physical therapy orders to increase flexion toward goal Instruct patient/family in ordered activity level Assist with transfers and ambulation using safe patient handling equipment as needed Goal: Maintain proper alignment of affected body part Outcome: Ongoing Flowsheets (Taken 05/19/20241899) Maintain proper alignment of affected body part: Support and protect limb and body alignment per provider's orders Instruct and reinforce with patient and family use of appropriate assistive device and precautions (e.g. spinal or hip dislocation precautions) Goal: Return ADL status to a safe level of function Outcome: Ongoing Flowsheets (Taken 05/19/20241899) Return ADL status to a safe level of function: Administer medication as ordered Assess activities of daily living deficits and provide assistive devices as needed Obtain physical therapy/occupational therapy consults as needed Assist and instruct patient to increase activity and self care as tolerated Problem: Gastrointestinal - Adult Goal: Minimal or absence of nausea and vomiting Outcome: Ongoing Flowsheets (Taken 05/19/20241899) Minimal or absence of nausea and vomiting: Administer IV fluids as ordered to ensure adequate hydration Maintain NPO status until nausea and vomiting are resolved Nasogastric tube to low intermittent suction as ordered Provide nonpharmacologic comfort measures as appropriate Advance diet as tolerated, if ordered Nutrition consult to assist patient with adequate nutrition and appropriate food choices Administer ordered antiemetic medications as needed Goal: Maintains or returns to baseline bowel function Outcome: Ongoing Flowsheets (Taken 05/19/20241899) Maintains or returns to baseline bowel function: Assess bowel function Encourage oral fluids to ensure adequate hydration Administer IV fluids as ordered to ensure adequate hydration Administer ordered medications as needed Encourage mobilization and activity Nutrition consult to assist patient with appropriate food choices Goal: Maintains adequate nutritional intake Outcome: Ongoing Flowsheets (Taken 05/19/20241899) Maintains adequate nutritional intake: Monitor percentage of each meal consumed Identify factors contributing to decreased intake, treat as appropriate Assist with meals as needed Monitor intake and output, weight and lab values Obtain nutritional consult as needed Goal: Establish and maintain optimal ostomy function Outcome: Ongoing Flowsheets (Taken 05/19/20241899) Establish and maintain optimal ostomy function: Monitor output from ostomies Administer IV fluids and TPN as ordered Introduce and advance enteral feedings as ordered Nutrition consult Gastric suctioning as ordered Infuse IV Fluids/TPN as ordered Problem: Genitourinary - Adult Goal: Absence of urinary retention Outcome: Ongoing Flowsheets (Taken 05/19/20241899) Absence of urinary retention: Assess patient’s ability to void and empty bladder Monitor intake/output and perform bladder scan as needed Place urinary catheter per Licensed Independent Practitioner order if needed Discuss catheterization for fdc situations as appropriate Discuss with Licensed Independent Practitioner medications to alleviate retention as needed Goal: Urinary catheter remains patent Outcome: Ongoing Flowsheets (Taken 05/19/20241899) Urinary catheter remains patent: Assess patency of urinary catheter Irrigate catheter per Licensed Independent Practitioner order if indicated and notify Licensed Independent Practitioner if unable to irrigate Assess need for a larger catheter size or a 3-way catheter for continuous bladder irrigation Problem: Infection - Adult Goal: Absence of infection at discharge Outcome: Ongoing Flowsheets (Taken 05/19/20241899) Absence of infection at discharge: Assess and monitor for signs and symptoms of infection Monitor lab/diagnostic results Monitor all insertion sites i.e., indwelling lines, tubes and drains [place] appropriate cooling/warming therapies per order Administer medications as ordered Instruct and encourage patient and family to use good hand hygiene technique Identify and instruct in appropriate isolation precautions for identified infection/condition Monitor endotracheal (as able) and nasal secretions for changes in amount and color Goal: Absence of infection during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
--- NOTE | 2025-01-08 11:28 | RAD REPORT ---
EXAMINATION: XR LEFT SHOULDER CLINICAL INDICATION: Female, 34 years old. Fall TECHNIQUE: Internal and external AP view radiograph of the left shoulder were obtained. COMPARISON: No prior exam. FINDINGS: No evidence of fracture or dislocation. Normal alignment. No evidence of arthropathy or oth er focal bone lesion. Soft tissues are unremarkable. IMPRESSION: No acute or significant abnormalities.
--- NOTE | 2025-01-08 11:52 | EDPHYS ---
Physician Documentation [facility] Name: Dionne Berger Age: 34 yrs Sex: Female : 1990 Arrival Date: 01/08/2025 Time: 10:00 Bed IW1 Private MD: ED Physician Hermann Buckley HPI: 01/08 10:29 This 34 yrs old Female presents to ER via Ambulatory with complaints of Fall dr5 Injury, Shoulder Injury. 10:29 Details of fall: The patient fell from an upright position, while standing. Onset: The dr5 symptoms/episode began/occurred 5 day(s) ago. Patient is a 34-year-old female with history of ADD, anxiety, depression, cranioplasty coming in with fall last Monday. Patient reports that she was taking gabapentin for pain and slipped and fell on her left shoulder. Patient reports that she is able to move her left shoulder with pain. Patient has not taken any medications prior to arrival. Patient also reports she has been thirsty and feels the need to constantly drink. Patient denies diabetes.. Historical: - Allergies: 10:28 VANCOMYCIN AND DERIVATIVES; iw - PMHx: 10:16 adhd; Anxiety; depressive disorder; Kidney stone; Ovarian cyst; jl7 - PSHx: 10:16 cranioplasty; Lithotripsy; Pilonidal; jl7 ROS: 10:29 Constitutional: as per hpi dr5 Exam: 10:29 Constitutional: This is a well developed, well nourished patient who is awake, alert, dr5 and in no acute distress. Head/Face: Normocephalic, atraumatic. Eyes: Pupils equal round and reactive to light, extra-ocular motions intact. Lids and lashes normal. Conjunctiva and sclera are non-icteric and not injected. Cornea within normal limits. Periorbital areas with no swelling, redness, or edema. Neck: Trachea midline, no thyromegaly or masses palpated, and no cervical lymphadenopathy. Supple, full range of motion without nuchal rigidity, or vertebral point tenderness. No Meningismus. Chest/axilla: Normal chest wall appearance and motion. Nontender with no deformity. No lesions are appreciated. Cardiovascular: Regular rate and rhythm with a normal S1 and S2. Normal PMI, no JVD. No pulse deficits. Respiratory: Lungs have equal breath sounds bilaterally, clear to auscultation. No rales, rhonchi or wheezes noted. No increased work of breathing, no retractions or nasal flaring. Back: No spinal tenderness. No costovertebral tenderness. Full range of motion. Skin: Warm, dry with normal turgor. Normal color with no rashes, no lesions, and no evidence of cellulitis. Neuro: Awake and alert, GCS 15, oriented to person, place, time, and situation. Cranial nerves II-XII grossly intact. Motor strength 5/5 in all extremities. Sensory grossly intact. Cerebellar exam normal. Normal gait. 10:29 Musculoskeletal/extremity: Extremities: grossly normal except: noted in the anterior aspect of left shoulder: pain, tenderness, ROM: full passive range of motion, Circulation is intact in all extremities. Sensation intact. Vital Signs: 10:28 BP 136 / 95; Pulse 105; Resp 16; Temp 98.1; Pulse Ox 100% on R/A; Weight 68.04 kg; iw Height 5 ft. 1 in. ; 10:28 Body Mass Index 28.34 (68.04 kg, 154.94 cm) iw MDM: 10:03 Medical Screening Exam initiated dr5 10:58 Refusal of service: The patient/guardian displays adequate decision making capability dr5 and despite a detailed discussion of alternatives, benefits, risks, and consequences refuses: all lab tests. 14:50 Differential diagnosis: abrasion, closed head injury, fracture, sprain, strain. Data dr5 reviewed: vital signs, nurses notes, radiologic studies, plain films. Consideration of Admission/Observation Escalation of care including admission/observation considered. Escalation considered if patient found to have dislocation. Independent interpretation of the following test(s) in the Emergency Department X-Ray: My interpretation is Depend interpretation of x-ray does not reveal fracture. Historians other than the Patient: Parent: Mother at bedside. Care significantly affected by the following Social Determinants of Health: Poor access to healthcare and/or lack of insurance, Poor access to transportation, Problems related to employment. Counseling: I had a detailed discussion with the patient and/or guardian regarding the historical points, exam findings, and any diagnostic results supporting the discharge/admit diagnosis, the presence of at least one elevated blood pressure reading (>120/80) during this emergency department visit, radiology results, the need for outpatient follow up, for definitive care, a family practitioner, a orthopedic surgeon, to return to the emergency department if symptoms worsen or persist or if there are any questions or concerns that arise at home. Special discussion: I discussed with the patient/guardian in detail that at this point there is no indication for admission to the hospital. It is understood, however, that if the symptoms persist or worsen the patient needs to return immediately for re-evaluation. Based on the history and exam findings, there is no indication for further emergent testing or inpatient evaluation. I discussed with the patient/guardian the need to see the orthopedic surgeon for further evaluation of the symptoms. I discussed with the patient/guardian the need to see the primary care provider for further evaluation of the symptoms. ED course: No fracture noted on x-ray. Patient left prior to giving results. Patient reports he is feeling fine. I did recommend shoulder exercises during triage. Nurse saw her on discharge and said if she wants to get her discharge she is more than welcome to come back to ER to tack picker packet and prescription. Patient reports that she does not want blood work during this visit.. 01/08 11:16 Order name: Glucose, Ancillary Testing; Complete Time: 11:16 EDMS 01/08 10:15 Order name: Shoulder Left (2 View) XRAY; Complete Time: 11:37 jl7 Administered Medications: 11:08 Not Given (Patient Refused): ns 0.9% 1000 ml IV at 1000 ml once; to be given as a bolus iw over 60 minutes Point of Care Testing: Blood Glucose: 11:04 Blood Glucose: 73 mg/dL; iw Ranges: Critical Glucose Levels:Adult <50 mg/dl or >400 mg/dl <40 mg/dl or >180 mg/dl Disposition Summary: 01/08/25 11:52 Discharge Ordered Notes: Location: Home dr5 Condition: Stable dr5 Diagnosis - Contusion of left shoulder dr5 Followup: dr5 - With: Emergency Department - When: As needed - Reason: Worsening of condition Followup: dr5 - With: Private Physician - When: 1 - 2 days - Reason: Recheck today's complaints, Continuance of care, Re-evaluation by your physician Discharge Instructions: - Discharge Summary Sheet dr5 - Shoulder Pain dr5 - Shoulder Range of Motion Exercises dr5 Forms: - Medication Reconciliation Form dr5 - Prescription Opioid Use dr5 - Patient Portal Instructions dr5 - Leadership Thank You Letter dr5 Prescriptions: - Tramadol 50 mg Oral Tablet - take 1 tablet ORAL route every 8 hours as needed; 12 tablet; Refills: 0, dr5 Product Selection Permitted Addendum: 01/10/2025 13:26 Co-signature as Attending Physician, Hermann Buckley MD I agree with the assessment and c lares plan of care. Signatures: Dispatcher [employer] Hermann Moeller MD MD cha Williams, Irene, RN Tarun Godwin RN RN jl7 Brayan Medrano, MATH SPECIALIST-C MATH SPECIALIST-Cdr5
--- NOTE | 2025-01-08 11:52 | ER ---
Nurse's Notes [facility] Name: Dionne Berger Age: 34 yrs Sex: Female : 1990 Arrival Date: 01/08/2025 Time: 10:00 Bed IW1 Private MD: Diagnosis: Contusion of left shoulder Presentation: 01/08 10:10 Chief complaint: Patient states: Cranioplasty on 12/13/24, taking gabapentin, fell a week jl7 ago and left shoulder still hurts. Denies hitting head. 10:27 Acuity: MARSHA 3 iw 10:30 Coronavirus screen: At this time, the client does not indicate any symptoms associated iw with coronavirus-19. Ebola Screen: No symptoms or risks identified at this time. Initial Sepsis Screen: Does the patient meet any 2 criteria? No. Patient's initial sepsis screen is negative. Does the patient have a suspected source of infection? No. Patient's initial sepsis screen is negative. Risk Assessment: Do you want to hurt yourself or someone else? Patient reports no desire to harm self or others. Onset of symptoms was January 01, 2025. 10:30 Method Of Arrival: Ambulatory iw Triage Assessment: 11:00 General: Appears in no apparent distress. Behavior is calm, cooperative. Pain: iw Complains of pain in left arm and anterior aspect of left shoulder. Historical: - Allergies: 10:28 VANCOMYCIN AND DERIVATIVES; iw - PMHx: 10:16 adhd; Anxiety; depressive disorder; Kidney stone; Ovarian cyst; jl7 - PSHx: 10:16 cranioplasty; Lithotripsy; Pilonidal; jl7 Screenin:05 [facility] ED Fall Risk Assessment (Adult) History of falling in the last 3 months, iw including since admission Yes- physiologic fall (2 pts) Confusion or Disorientation No (0 pts) Intoxicated or Sedated No (0 pts) Impaired Gait Yes (1 pt) Mobility Assist Device Used No (0 pt) Altered Elimination No (0 pt) Score/Fall Risk Level 0 - 2 = Low Risk Oriented to surroundings, Maintained a safe environment. Abuse screen: Denies threats or abuse. Nutritional screening: No deficits noted. Tuberculosis screening: No symptoms or risk factors identified. Assessment: 11:04 Reassessment: pt refused blood draw, FSBS=73. iw Vital Signs: 10:28 BP 136 / 95; Pulse 105; Resp 16; Temp 98.1; Pulse Ox 100% on R/A; Weight 68.04 kg; iw Height 5 ft. 1 in. ; 10:28 Body Mass Index 28.34 (68.04 kg, 154.94 cm) iw ED Course: 10:03 Patient arrived in ED. mr 10:03 Bray[facility] Medrano [facility]C [facility] 10:03 Hermann Buckley MD is Attending Physician. dr5 10:27 Triage completed. iw 10:28 Arm band placed on. iw 10:40 Shoulder Left (2 View) XRAY In Process Unspecified. EDMS 11:50 No provider procedures requiring assistance completed. Patient did not have IV access iw during this emergency room visit. 11:55 Lynnette Harris, RN is Primary Nurse. iw Administered Medications: 11:08 Not Given (Patient Refused): ns 0.9% 1000 ml IV at 1000 ml once; to be given as a bolus iw over 60 minutes Medication: 11:00 VIS not applicable for this client. iw Point of Care Testing: Blood Glucose: 11:04 Blood Glucose: 73 mg/dL; iw Ranges: Outcome: 11:52 Discharge ordered by MD. dr5 11:55 Patient left the ED. iw 11:55 Discharged to home ambulatory, with family, iw 11:55 Condition: good 11:55 Discharge instructions given to patient, family, Instructed on discharge instructions, follow up and referral plans. Demonstrated understanding of instructions, follow-up care, Signatures: Dispatcher [employer] EDSD Margy Herrera, Reg Reg mr Lynnette Harris, RN RN iw Tarun Gamez RN RN jl7 Brayan Medrano FNP-C CONSTRUCTION EXECUTIVE-Cdr5
[2025-01-08 14:20] VITALS: BP 136/95; TEMP 98.1; O2SAT 100
== END 2025-01-08 11:55 | disposition home or self-care (01) ==
LOC: ER 10:00
DX: S40.012A Contusion of left shoulder, initial encounter (principal); W01.0XXA Fall on same level from slipping, tripping and stumbling without subsequent striking against object, initial encounter
CPT/HCPCS: 82947; 99283